=== PATIENT | female | born 1950 ===

== ENCOUNTER 2018-04-14 16:47 | Inpatient (IN) | payer MEDICARE, OTHER ==
[2018-04-14 16:54] VITALS: BMI 29.8
[2018-04-14 17:51] LABS: BASO # 0.01 K/mm3 (0.0-2.0); EOS # 0.1 (0.0-0.7); EOS % 0.6 % (1.5-5.0); GRAN # 17.83 (1.4-6.5); GRAN % 82.7 % (50.0-68.0); HEMOGLOBIN 9.1 g/dL (12.0-16.0); LYMPH # 1.9 (1.2-3.4); MEAN CELL VOLUME 85.3 fl (80.0-105.0); MEAN CORPUSCULAR HEMOGLOBIN 26.8 pg (25.0-35.0); MEAN CORPUSCULAR HGB CONC 31.5 g/dl (31.0-37.0); MEAN PLATELET VOLUME 8.6 fl (7.0-11.0); MONO # 1.7 (0.1-0.6); MONO % 7.7 % (1.0-6.0); RBC 3.39 10^6/uL (3.5-6.1); RED CELL DISTRIBUTION WIDTH 15.6 % (11.5-14.5); WHITE BLOOD COUNT 21.6 10^3/uL (4.5-11.0)
[2018-04-14 18:17] LABS: TROPONIN I < 0.01 ng/mL
[2018-04-14] MEDS: Sodium Chloride 0.9% 1,000 ML IV SCH (18:19)
[2018-04-14 18:32] LABS: ALB/GLOB RATIO 0.9 (1.1-1.8); ALBUMIN 3.5 g/dL (3.0-4.8); ALT/SGPT 27 U/L (7-56); AST/SGOT 36 U/L (14-36); B-TYPE NATRIURETIC PEPTIDE 238 pg/mL (0-450); BLOOD UREA NITROGEN 20 mg/dL (7-21); CALCIUM 9.4 mg/dL (8.4-10.5); GFR NON-AFRICAN AMERICAN 55
--- NOTE | 2018-04-14 18:50 | ED PDOC ---
Arrival/HPI - General Chief Complaint: Syncope Time Seen by Provider: 04/14/18 17:18 Historian: Patient - History of Present Illness Narrative History of Present Illness (Text): 04/14/18 16:50 67 year old female, whose past medical history includes hypertension and GERD, presents to the emergency department stating she is not feeling well for the past few days. Patient reports today she was walking and suddenly felt dizzy. The next thing she recalls was that she was on the floor and was unsure how long she was on the floor for. After waking up, she noticed she missed 2 messages on her phone. Patient reports decrease appetite along with unintentional 12 pound weight loss in the past 4 weeks. Patient denies any fever, chills, chest pain, shortness of breath, nausea, vomiting, diarrhea, urinary symptoms, back pain, neck pain, headache, or any other complaints. PMD: Dr. Amaya Time/Duration: Other (few days) Symptom Onset: Gradual Symptom Course: Unchanged Activities at Onset: Light Past Medical History - Provider Review Nursing Documentation Reviewed: Yes - Infectious Disease Hx of Infectious Diseases: None - Tetanus Immunization Tetanus Immunization: Unknown - Reproductive Menopause: Yes - Cardiac Hx Hypertension: Yes - Neurological Hx Paralysis: No - Endocrine/Metabolic Hx Diabetes Mellitus Type 2: Yes - Hematological/Oncological Hx Blood Transfusions: No Hx Blood Transfusion Reaction: No - Musculoskeletal/Rheumatological Hx Musculoskeletal Disorders: Yes - Psychiatric Hx Emotional Abuse: No Hx Physical Abuse: No Hx Substance Use: No - Surgical History Other/Comment: spine surgery. L breast cyst removed - Anesthesia Hx Anesthesia Reactions: No Hx Malignant Hyperthermia: No - Suicidal Assessment Feels Threatened In Home Enviroment: No Family/Social History - Physician Review Nursing Documentation Reviewed: Yes Family/Social History: No Known Family HX Smoking Status: Former Smoker Hx Alcohol Use: Yes (SOCIAL) Hx Substance Use: No Allergies/Home Meds Allergies/Adverse Reactions: Allergies No Known Allergies Allergy (Verified 04/05/14 22:55) Home Medications: Home Meds Medication Instructions Recorded Confirmed DULoxetine [Cymbalta] 30 mg PO DAILY 04/05/14 03/01/16 Esomeprazole Magnesium [Nexium] 40 mg PO DAILY 04/05/14 03/01/16 Losartan/Hydrochlorothiazide 1 tab PO DAILY 04/05/14 03/01/16 [Losartan Potassium-Hydrochlorothiazide 12.5 M] Celecoxib [CeleBREX] 200 mg PO DAILY 02/25/16 02/25/16 Tiotropium [Spiriva] 18 mcg IH DAILY PRN 02/25/16 03/01/16 Review of Systems - Physician Review All systems were reviewed & negative as marked: Yes - Review of Systems Constitutional: Weight Change. absent: Fevers, Other (Chills) Respiratory: absent: SOB Cardiovascular: Syncope. absent: Chest Pain Gastrointestinal: Appetite Changes. absent: Diarrhea, Nausea, Vomiting Genitourinary Female: absent: Dysuria, Frequency, Hematuria Musculoskeletal: absent: Back Pain, Neck Pain Neurological: Dizziness. absent: Headache Physical Exam Vital Signs Reviewed: Yes Vital Signs Temp Pulse Resp BP Pulse Ox 04/14/18 16:48 98 F 100 H 18 111/74 100 Temperature: Afebrile Blood Pressure: Normal Pulse: Tachycardic Respiratory Rate: Normal Appearance: Positive for: Well-Appearing, Non-Toxic, Comfortable Pain Distress: None Mental Status: Positive for: Alert and Oriented X 3 - Systems Exam Head: Present: Atraumatic, Normocephalic Pupils: Present: PERRL Extroacular Muscles: Present: EOMI Conjunctiva: Present: Normal Mouth: Present: Dry Neck: Present: Normal Range of Motion Respiratory/Chest: Present: Clear to Auscultation, Good Air Exchange. No: Respiratory Distress, Accessory Muscle Use Cardiovascular: Present: Regular Rate and Rhythm, Normal S1, S2. No: Murmurs Abdomen: No: Tenderness, Distention, Peritoneal Signs Back: Present: Normal Inspection Upper Extremity: Present: Normal Inspection. No: Cyanosis, Edema Lower Extremity: Present: Normal Inspection. No: Edema Neurological: Present: GCS=15, CN II-XII Intact, Speech Normal Skin: Present: Warm, Dry, Normal Color. No: Rashes Psychiatric: Present: Alert, Oriented x 3, Normal Insight, Normal Concentration Medical Decision Making ED Course and Treatment: 04/14/18 17:20 Impression: 67 year old female presents s/p syncopal episode after feeling dizzy. Patient re port she was not feeling well for the past couple of days and noted decrease appetite along with 12 pounds weight loss in the past 4 weeks. Plan: -- CT Head w/o Contrast -- EKG -- Labs -- Chest X-ray -- IV Fluids -- Urine Culture -- Urinalysis -- Reassess and disposition Prior Visits: Notes and results from previous visits were reviewed. Progress Notes: EKG shows NSR at 97 BPM with normal axis and normal intervals. Interpreted by me. 04/14/18 18:57 CXR Impression: As read by me, No active disease. Orthostatics positive. 04/14/18 18:58 Case signed out to Dr. Ornelas, pending CT head w/o contrast, reassess, and disposition. - Lab Interpretations Lab Results: Troponin I < 0.01 ng/mL 04/14/18 17:35 NT-Pro-B Natriuret Pep 238 pg/mL (0-450) 04/14/18 17:35 Total Bilirubin 0.5 mg/dL (0.2-1.3) 04/14/18 17:35 AST 36 U/L (14-36) 04/14/18 17:35 ALT 27 U/L (7-56) 04/14/18 17:35 Alkaline Phosphatase 107 U/L (38-126) 04/14/18 17:35 Total Protein 7.6 g/dL (5.8-8.3) 04/14/18 17:35 Albumin 3.5 g/dL (3.0-4.8) 04/14/18 17:35 Globulin 4.1 gm/dL 04/14/18 17:35 Albumin/Globulin Ratio 0.9 (1.1-1.8) L 04/14/18 17:35 I have reviewed the lab results: Yes - RAD Interpretation Radiology Orders: 04/14/18 17:18 HEAD W/O CONTRAST [CT] Stat CHEST PORTABLE [RAD] Stat Traffic Safety Administrator: Radiologist - EKG Interpretation Interpreted by ED Physician: Yes Type: 12 lead EKG - Medication Orders Current Medication Orders: Sodium Chloride (Sodium Chloride 0.9%) 1,000 mls @ 100 mls/hr IV .Q10H ELI Last Admin: 04/14/18 18:19 Dose: 100 mls/hr eMAR Start Stop Document 04/14/18 18:19 SS (Rec: 04/14/18 18:19 SS [id number]) Intravenous Solution Start Date 04/14/18 Start Time 18:19 - Scribe Statement The provider has reviewed the documentation as recorded by the Otoniel Calixto Provider Scribe Attestation: All medical record entries made by the Scribe were at my direction and personally dictated by me. I have reviewed the chart and agree that the record accurately reflects my personal performance of the history, physical exam, medical decision making, and the department course for this patient. I have also personally directed, reviewed, and agree with the discharge instructions and disposition. Disposition/Present on Arrival - Present on Arrival Any Indicators Present on Arrival: No History of DVT/PE: No History of Uncontrolled Diabetes: No Urinary Catheter: No History of Decub. Ulcer: No History Surgical Site Infection Following: None - Disposition Have Diagnosis and Disposition been Completed?: Yes Diagnosis: Orthostatic hypotension, Syncope, Leukocytosis Disposition Time: 19:00 Condition: STABLE Discharge Instructions (ExitCare): Syncope (ED) Forms: [facility] (Afghan)
[2018-04-14 18:51] LABS: URINE BILIRUBIN NEGATIVE (NEGATIVE); URINE BLOOD NEGATIVE (NEGATIVE); URINE GLUCOSE (UA) NEGATIVE (NEGATIVE); URINE LEUKOCYTE ESTERASE NEGATIVE Leu/uL (NEGATIVE); URINE PROTEIN NEGATIVE mg/dL (<30 mg/dL); URINE UROBILINOGEN 0.2 E.U./dL (<1 E.U./dL)
[2018-04-14 18:53] LABS: URINE APPEARANCE CLEAR (CLEAR); URINE COLOR YELLOW (YELLOW)
[2018-04-14 19:55] LABS: T3 0.95 ng/mL (0.97-1.69)
[2018-04-14] MEDS ORDERED: cefTRIAXone 1 gm 1 GM/100 ML BAG IV STA (20:19)
--- NOTE | 2018-04-14 20:28 | ED PDOC ---
Physical Exam Vital Signs Temp Pulse Resp BP Pulse Ox 04/14/18 18:30 77 18 100 04/14/18 16:48 98 F 100 H 18 111/74 100 Medical Decision Making ED Course and Treatment: 04/14/18 19:00 Case endorsed to me by Dr. Carvalho, pending CT head w/o contrast, reassess, and disposition. Patient with past medical history of hypertension and GERD. Patient with a syncopal episode today with history of decrease appetite and weight loss over the past month. EXAM: CT Head without Intravenous Contrast. Electronically signed on Apr 14, 2018 7:45:04 PM EST by: Samir Cash M.D. IMPRESSION: No acute intracranial abnormality. Mild inflammatory changes left maxillary sinus suspected. 04/14/18 20:[address] Fields who is aware and agrees with the plan. Accepts patient into his service. - Lab Interpretations Lab Results: Troponin I < 0.01 ng/mL 04/14/18 17:35 NT-Pro-B Natriuret Pep 238 pg/mL (0-450) 04/14/18 17:35 Total Bilirubin 0.5 mg/dL (0.2-1.3) 04/14/18 17:35 AST 36 U/L (14-36) 04/14/18 17:35 ALT 27 U/L (7-56) 04/14/18 17:35 Alkaline Phosphatase 107 U/L (38-126) 04/14/18 17:35 Total Protein 7.6 g/dL (5.8-8.3) 04/14/18 17:35 Albumin 3.5 g/dL (3.0-4.8) 04/14/18 17:35 Globulin 4.1 gm/dL 04/14/18 17:35 Albumin/Globulin Ratio 0.9 (1.1-1.8) L 04/14/18 17:35 Urine Color Yellow (YELLOW) 04/14/18 18:16 Urine Appearance Clear (CLEAR) 04/14/18 18:16 Urine pH 6.0 (4.7-8.0) 04/14/18 18:16 Ur Specific [place] 1.020 (1.005-1.035) 04/14/18 18:16 Urine Protein Negative mg/dL (<30 mg/dL) 04/14/18 18:16 Urine Glucose (UA) Negative mg/dL (NEGATIVE) 04/14/18 18:16 Urine Ketones Negative mg/dL (NEGATIVE) 04/14/18 18:16 Urine Blood Negative (NEGATIVE) 04/14/18 18:16 Urine Nitrate Negative (NEGATIVE) 04/14/18 18:16 Urine Bilirubin Negative (NEGATIVE) 04/14/18 18:16 Urine Urobilinogen 0.2 E.U./dL (<1 E.U./dL) 04/14/18 18:16 Ur Leukocyte Esterase Negative Emma/uL (NEGATIVE) 04/14/18 18:16 - RAD Interpretation Radiology Orders: 04/14/18 17:18 HEAD W/O CONTRAST [CT] Stat CHEST PORTABLE [RAD] Stat - Medication Orders Current Medication Orders: Sodium Chloride (Sodium Chloride 0.9%) 1,000 mls @ 100 mls/hr IV .Q10H ELI Last Admin: 04/14/18 18:19 Dose: 100 mls/hr eMAR Start Stop Document 04/14/18 18:19 SS (Rec: 04/14/18 18:19 SS [id number]) Intravenous Solution Start Date 04/14/18 Start Time 18:19 Ceftriaxone Sodium (Rocephin 1 Gram Ivpb) 1 gm in 100 mls @ 200 mls/hr IV ONCE STA; Protocol Stop: 04/14/18 20:48 - Scribe Statement The provider has reviewed the documentation as recorded by the Scribe Noemi Calixto Provider Scribe Attestation: All medical record entries made by the Scribe were at my direction and personally dictated by me. I have reviewed the chart and agree that the record accurately reflects my personal performance of the history, physical exam, medical decision making, and the department course for this patient. I have also personally directed, reviewed, and agree with the discharge instructions and disposition. Disposition/Present on Arrival - Present on Arrival Any Indicators Present on Arrival: No History of DVT/PE: No History of Uncontrolled Diabetes: No Urinary Catheter: No History of Decub. Ulcer: No History Surgical Site Infection Following: None - Disposition Have Diagnosis and Disposition been Completed?: Yes Diagnosis: Orthostatic hypotension, Syncope, Leukocytosis Disposition: HOSPITALIZED Disposition Time: 20:31 Patient Problems: Current Active Problems Problem Status Onset Leukocytosis Acute Orthostatic hypotension Acute Syncope Acute Condition: STABLE Discharge Instructions (ExitCare): Syncope (ED) Forms: [facility] (Serbian)
[2018-04-15] MEDS: Sodium Chloride 0.9% 1,000 ML IV SCH ×2 (04:00→15:35)
--- NOTE | 2018-04-15 05:30 | CP.PCM.HP ---
Past Patient History - Infectious Disease Hx of Infectious Diseases: None - Tetanus Immunizations Tetanus Immunization: Unknown - Past Social History Smoking Status: Former Smoker - CARDIAC Hx Cardiac Disorders: Yes Hx Hypertension: Yes - PULMONARY Hx Respiratory Disorders: No - NEUROLOGICAL Hx Neurological Disorder: Yes Hx Dizziness: Yes - HEENT Hx HEENT Problems: No - RENAL Hx Chronic Kidney Disease: No - ENDOCRINE/METABOLIC Hx Endocrine Disorders: Yes Hx Diabetes Mellitus Type 2: Yes - HEMATOLOGICAL/ONCOLOGICAL Hx Blood Disorders: No - INTEGUMENTARY Hx Dermatological Problems: No - MUSCULOSKELETAL/RHEUMATOLOGICAL Hx Musculoskeletal Disorders: Yes Hx Arthritis: Yes Hx Falls: Yes (04/14/18) Hx Unsteady Gait: Yes - GASTROINTESTINAL Hx Gastrointestinal Disorders: No - GENITOURINARY/GYNECOLOGICAL Hx Genitourinary Disorders: No - PSYCHIATRIC Hx Psychophysiologic Disorder: No - SURGICAL HISTORY Hx Surgeries: Yes Hx Appendectomy: Yes Other/Comment: spine surgery. L breast cyst removed. Ovarain cyst removal x6. Tubal ligation - ANESTHESIA Hx Anesthesia Reactions: No Hx Malignant Hyperthermia: No Meds Allergies/Adverse Reactions: Allergies Allergy/AdvReac Type Severity Reaction Status Date / Time No Known Allergies Allergy Verified 04/05/14 22:55 Results - Vital Signs Recent Vital Signs: Last Vital Signs Temp 99.2 F 04/15/18 00:38 Pulse 73 04/15/18 02:00 Resp 20 04/15/18 00:38 BP 124/79 04/15/18 00:38 Pulse Ox 95 04/15/18 00:38 - Labs Result Diagrams: 04/14/18 17:35 04/14/18 17:35 Labs: Laboratory Results - last 24 hr 04/14/18 04/14/18 04/14/18 17:35 17:35 17:35 WBC 21.6 H RBC 3.39 L Hgb 9.1 L Hct 28.9 L MCV 85.3 MCH 26.8 MCHC 31.5 RDW 15.6 H Plt Count 669 H MPV 8.6 Gran % 82.7 H Lymph % (Auto) 9.0 L [place] % (Auto) 7.7 H Eos % (Auto) 0.6 L Baso % (Auto) 0.0 Gran # 17.83 H Lymph # (Auto) 1.9 [place] # (Auto) 1.7 H Eos # (Auto) 0.1 Baso # (Auto) 0.01 Sodium 136 Potassium 4.1 Chloride 99 Carbon Dioxide 27 Anion Gap 14 BUN 20 Creatinine 1.0 Est GFR ( Amer) > 60 Est GFR (Non-Af Amer) 55 Random Glucose 144 H Calcium 9.4 Magnesium 2.0 Total Bilirubin 0.5 AST 36 ALT 27 Alkaline Phosphatase 107 Lactate Dehydrogenase 561 Total Creatine Kinase 26 L Troponin I < 0.01 NT-Pro-B Natriuret Pep 238 Total Protein 7.6 Albumin 3.5 Globulin 4.1 Albumin/Globulin Ratio 0.9 L Total T3 0.95 L TSH 3rd Generation 1.94 Urine Color Urine Appearance Urine pH Ur Specific [place] Urine Protein Urine Glucose (UA) Urine Ketones Urine Blood Urine Nitrate Urine Bilirubin Urine Urobilinogen Ur Leukocyte Esterase 04/14/18 18:16 WBC RBC Hgb Hct MCV MCH MCHC RDW Plt Count MPV Gran % Lymph % (Auto) [place] % (Auto) Eos % (Auto) Baso % (Auto) Gran # Lymph # (Auto) [place] # (Auto) Eos # (Auto) Baso # (Auto) Sodium Potassium Chloride Carbon Dioxide Anion Gap BUN Creatinine Est GFR ( Amer) Est GFR (Non-Af Amer) Random Glucose Calcium Magnesium Total Bilirubin AST ALT Alkaline Phosphatase Lactate Dehydrogenase Total Creatine Kinase Troponin I NT-Pro-B Natriuret Pep Total Protein Albumin Globulin Albumin/Globulin Ratio Total T3 TSH 3rd Generation Urine Color Yellow Urine Appearance Clear Urine pH 6.0 Ur Specific [place] 1.020 Urine Protein Negative Urine Glucose (UA) Negative Urine Ketones Negative Urine Blood Negative Urine Nitrate Negative Urine Bilirubin Negative Urine Urobilinogen 0.2 Ur Leukocyte Esterase Negative
--- NOTE | 2018-04-15 09:04 | CP.PCM.HP ---
<Jeanette Aburto - Last Filed: 04/15/18 22:22> History of Present Illness - History of Present Illness History of Present Illness: 67yo female PMHx HTN, GERD, DM2, lumbar disc herniation and LLE sciatica presens with episode of syncope at home. Patient reports she had returned home from buying groceries and after sitting down she stood up to reach her phone and started to feel dizzy. She had an episode of LOC and woke up on the floor. She was uncertain of how long she was on the floor for. She reported lightheadedness during this episode but denied any loss of bowel/bladder control, biting of the tongue. She was also unsure whether she hit her head but did complain of a mild dull headache. The patient denied any numbness/tingling/focal weakness/change in vision/change in taste/smell. Patient denied any history of seizures. Patient did report that recently she has noted a decreased appetite and a 20 pound unintentional weight loss over 3 months. Additionally she reported that someti mes when she is in the shower/moving around she experiences a sense of heaviness in her chest with associated nausea but no overt chest pain or shortness of breath. Patient states she has had a stress test in the past 2 years ago but could not recall the result. She has also had an EGD and colonoscopy done but cannot recall the results. On ROS patient denied fever, chills, headache, palpitations, cough, abd pain, vomiting, bowel/bladder complaints. She has a history of sciatica and complained of LLE pain. PMHx: HTN, GERD, DM2, lumbar disc herniation and LLE sciatica, cervical discectomy, cervical radiculopathy, PSurgHx: L breast cyst removal. spinal surg PHospitalization: Apr 2017 for aspiration pna Meds: Metformin 500mg bid, Pravastatin 20mg hs, Losratan-HCTZ 100-12/5mg qd, Tizanidine 4mg, Gabapentin 300mg 1-2 times/day, Celecoxib 200mg qd, Cymbalta 30mg qd ALL: NKDA FamHx: mother DM and HTN alive at 84yo; father of [place] 64yo SocHx: prior tobacco use quit 2-3 months ago; used to smoke 4-5cigarettes/day for 30 years; retired. PMD: Jose Luis Present on Admission - Present on Admission Any Indicators Present on Admission: No Review of Systems - Review of Systems All systems: reviewed and no additional remarkable complaints except Review of Systems: as per HPI Past Patient History - Infectious Disease Hx of Infectious Diseases: None - Tetanus Immunizations Tetanus Immunization: Unknown - Past Social History Smoking Status: Former Smoker - CARDIAC Hx Cardiac Disorders: Yes Hx Hypertension: Yes - PULMONARY Hx Respiratory Disorders: No - NEUROLOGICAL Hx Neurological Disorder: Yes Hx Dizziness: Yes - HEENT Hx HEENT Problems: No - RENAL Hx Chronic Kidney Disease: No - ENDOCRINE/METABOLIC Hx Endocrine Disorders: Yes Hx Diabetes Mellitus Type 2: Yes - HEMATOLOGICAL/ONCOLOGICAL Hx Blood Disorders: No - INTEGUMENTARY Hx Dermatological Problems: No - MUSCULOSKELETAL/RHEUMATOLOGICAL Hx Musculoskeletal Disorders: Yes Hx Arthritis: Yes Hx Falls: Yes (04/14/18) Hx Unsteady Gait: Yes - GASTROINTESTINAL Hx Gastrointestinal Disorders: No - GENITOURINARY/GYNECOLOGICAL Hx Genitourinary Disorders: No - PSYCHIATRIC Hx Psychophysiologic Disorder: No - SURGICAL HISTORY Hx Surgeries: Yes Hx Appendectomy: Yes Other/Comment: spine surgery. L breast cyst removed. Ovarain cyst removal x6. Tubal ligation - ANESTHESIA Hx Anesthesia Reactions: No Hx Malignant Hyperthermia: No Meds Allergies/Adverse Reactions: Allergies Allergy/AdvReac Type Severity Reaction Status Date / Time No Known Allergies Allergy Verified 04/05/14 22:55 Physical Exam - Constitutional Appears: Non-toxic, No Acute Distress - Head Exam Head Exam: ATRAUMATIC, NORMAL INSPECTION, NORMOCEPHALIC - Eye Exam Eye Exam: EOMI, Normal appearance, PERRL. absent: Conjunctival injection, Scleral icterus - ENT Exam ENT Exam: Mucous Membranes Moist - Neck Exam Neck exam: Positive for: Full Rom. Negative for: Lymphadenopathy - Respiratory Exam Respiratory Exam: Clear to Auscultation Bilateral, NORMAL BREATHING PATTERN. absent: Accessory Muscle Use, Rales, Rhonchi, Wheezes, Respiratory Distress - Cardiovascular Exam Cardiovascular Exam: RRR, +S1, +S2 - GI/Abdominal Exam GI & Abdominal Exam: Normal Bowel Sounds, Soft. absent: Firm, Guarding, Rigid, Tenderness - Rectal Exam Rectal Exam: Deferred - Extremities Exam Extremities exam: Positive for: normal inspection, pedal pulses present. Negative for: pedal edema - Neurological Exam Neurological exam: Alert, CN II-XII Intact, Oriented x3 - Psychiatric Exam Psychiatric exam: Normal Affect, Normal Mood - Skin Skin Exam: Dry, Intact, Normal Color, Warm Results - Vital Signs Recent Vital Signs: Last Vital Signs Temp 97.8 F 04/15/18 08:12 Pulse 65 04/15/18 08:12 Resp 20 04/15/18 08:12 BP 103/63 04/15/18 08:12 Pulse Ox 97 04/15/18 08:12 - Labs Result Diagrams: 04/15/18 11:00 04/14/18 17:35 Labs: Laboratory Results - last 24 hr 04/14/18 04/14/18 04/14/18 17:35 17:35 17:35 WBC 21.6 H RBC 3.39 L Hgb 9.1 L Hct 28.9 L MCV 85.3 MCH 26.8 MCHC 31.5 RDW 15.6 H Plt Count 669 H MPV 8.6 Gran % 82.7 H Lymph % (Auto) 9.0 L [place] % (Auto) 7.7 H Eos % (Auto) 0.6 L Baso % (Auto) 0.0 Gran # 17.83 H Lymph # (Auto) 1.9 [place] # (Auto) 1.7 H Eos # (Auto) 0.1 Baso # (Auto) 0.01 Sodium 136 Potassium 4.1 Chloride 99 Carbon Dioxide 27 Anion Gap 14 BUN 20 Creatinine 1.0 Est GFR ( Amer) > 60 Est GFR (Non-Af Amer) 55 Random Glucose 144 H Calcium 9.4 Magnesium 2.0 Total Bilirubin 0.5 AST 36 ALT 27 Alkaline Phosphatase 107 Lactate Dehydrogenase 561 Total Creatine Kinase 26 L Troponin I < 0.01 NT-Pro-B Natriuret Pep 238 Total Protein 7.6 Albumin 3.5 Globulin 4.1 Albumin/Globulin Ratio 0.9 L Total T3 0.95 L TSH 3rd Generation 1.94 Urine Color Urine Appearance Urine pH Ur Specific [place] Urine Protein Urine Glucose (UA) Urine Ketones Urine Blood Urine Nitrate Urine Bilirubin Urine Urobilinogen Ur Leukocyte Esterase 04/14/18 18:16 WBC RBC Hgb Hct MCV MCH MCHC RDW Plt Count MPV Gran % Lymph % (Auto) [place] % (Auto) Eos % (Auto) Baso % (Auto) Gran # Lymph # (Auto) [place] # (Auto) Eos # (Auto) Baso # (Auto) Sodium Potassium Chloride Carbon Dioxide Anion Gap BUN Creatinine Est GFR ( Amer) Est GFR (Non-Af Amer) Random Glucose Calcium Magnesium Total Bilirubin AST ALT Alkaline Phosphatase Lactate Dehydrogenase Total Creatine Kinase Troponin I NT-Pro-B Natriuret Pep Total Protein Albumin Globulin Albumin/Globulin Ratio Total T3 TSH 3rd Generation Urine Color Yellow Urine Appearance Clear Urine pH 6.0 Ur Specific [place] 1.020 Urine Protein Negative Urine Glucose (UA) Negative Urine Ketones Negative Urine Blood Negative Urine Nitrate Negative Urine Bilirubin Negative Urine Urobilinogen 0.2 Ur Leukocyte Esterase Negative Assessment & Plan - Assessment and Plan (Free Text) Assessment: 1. Syncope 2. Anemia 3. Leukocytosis 4. HTN 5. DM2 6. Hypercholesterolemia 7. Cervical radiculopathy 8. Lumbar disc herniation and radiculopathy 9. LLE sciatica 10. GERD Plan: Patient's vitals, imaging, and blood work noted. Patient's syncope likely vasovagal in nature with regards to clinical picture but must take into consideration other cardiogenic vs neurogenic causes. CT head negative. Will f/u orthostatic vital signs and carotid A u/s. Cardiology and Neurology consulted- will f/u reccs. Patient's BP meds on hold at this time and patient has been normotensive- will continue to monitor closely. Patient's normocytic anemia noted. Iron studies ordered- will f/u. Patient's leukocytosis likely reactionary ; monitor at this time. No need for abx. CXR unremarkable; blood cultures prelim negative x 2. Will f/u urine culture. UA negative and patient is afebrile with no complaints suggestive of infectious etiology. Monitor WBC on AM labs. F/u patient's HgbA1c. Home hypoglycemic meds on hold and patient on Accuchecks and RISS. FLP ordered with AM labs and home statin continued. Patient's home Celexa, Neurontin, and Cymbalta continued. Patient on heart healthy diet at this time and encouraged to have good PO intake. PT ordered- will f/u reccs. Discussed with Dr. Donnie Aburto PGY3 <Lonny Fields S - Last Filed: 04/16/18 19:34> Results - Vital Signs Recent Vital Signs: Last Vital Signs Temp 98.1 F 04/16/18 08:18 Pulse 67 04/16/18 08:18 Resp 20 04/16/18 08:18 BP 118/65 04/16/18 08:18 Pulse Ox 95 04/16/18 08:18 - Labs Result Diagrams: 04/16/18 06:00 04/16/18 06:00 Labs: Laboratory Results - last 24 hr 04/15/18 04/16/18 04/16/18 21:27 06:00 06:00 WBC 15.4 H RBC 3.44 L Hgb 8.8 L Hct 29.1 L MCV 84.6 MCH 25.6 MCHC 30.2 L RDW 15.6 H Plt Count 663 H MPV 8.4 Gran % 72.9 H Lymph % (Auto) 16.4 L [place] % (Auto) 8.2 H Eos % (Auto) 2.3 Baso % (Auto) 0.2 Gran # 11.20 H Lymph # (Auto) 2.5 [place] # (Auto) 1.3 H Eos # (Auto) 0.4 Baso # (Auto) 0.03 Retic Count 2.51 H PT INR APTT Sodium Potassium Chloride Carbon Dioxide Anion Gap BUN Creatinine Est GFR ( Amer) Est GFR (Non-Af Amer) POC Glucose (mg/dL) 107 Random Glucose Calcium Phosphorus Magnesium Iron 20 L TIBC 199 L % Saturation 10 L Transferrin Ferritin Total Bilirubin AST ALT Alkaline Phosphatase Total Protein Albumin Globulin Albumin/Globulin Ratio Triglycerides Cholesterol LDL Cholesterol Direct HDL Cholesterol Carcinoembryonic Ag CA 19-9 Antigen CA 125 Antigen 04/16/18 04/16/18 04/16/18 06:00 06:00 06:00 WBC RBC Hgb Hct MCV MCH MCHC RDW Plt Count MPV Gran % Lymph % (Auto) [place] % (Auto) Eos % (Auto) Baso % (Auto) Gran # Lymph # (Auto) [place] # (Auto) Eos # (Auto) Baso # (Auto) Retic Count PT INR APTT Sodium 140 Potassium 4.0 Chloride 105 Carbon Dioxide 31 Anion Gap 7 L BUN 15 Creatinine 0.9 Est GFR ( Amer) > 60 Est GFR (Non-Af Amer) > 60 POC Glucose (mg/dL) Random Glucose 115 H Calcium 9.3 Phosphorus 4.1 Magnesium 2.5 H Iron TIBC % Saturation Transferrin Ferritin 798.0 Total Bilirubin 0.5 AST 41 H ALT 21 Alkaline Phosphatase 94 Total Protein 7.3 Albumin 3.3 Globulin 4.0 Albumin/Globulin Ratio 0.8 L Triglycerides 89 Cholesterol 104 L LDL Cholesterol Direct 53 HDL Cholesterol 22 L Carcinoembryonic Ag 2.1 CA 19-9 Antigen 2.6 CA 125 Antigen 16.7 04/16/18 04/16/18 04/16/18 06:30 08:14 11:42 WBC RBC Hgb Hct MCV MCH MCHC RDW Plt Count MPV Gran % Lymph % (Auto) [place] % (Auto) Eos % (Auto) Baso % (Auto) Gran # Lymph # (Auto) [place] # (Auto) Eos # (Auto) Baso # (Auto) Retic Count PT INR APTT Sodium Potassium Chloride Carbon Dioxide Anion Gap BUN Creatinine Est GFR ( Amer) Est GFR (Non-Af Amer) POC Glucose (mg/dL) 121 H 240 H Random Glucose Calcium Phosphorus Magnesium Iron TIBC % Saturation Transferrin 140.90 L Ferritin Total Bilirubin AST ALT Alkaline Phosphatase Total Protein Albumin Globulin Albumin/Globulin Ratio Triglycerides Cholesterol LDL Cholesterol Direct HDL Cholesterol Carcinoembryonic Ag CA 19-9 Antigen CA 125 Antigen 04/16/18 04/16/18 13:45 17:23 WBC RBC Hgb Hct MCV MCH MCHC RDW Plt Count MPV Gran % Lymph % (Auto) [place] % (Auto) Eos % (Auto) Baso % (Auto) Gran # Lymph # (Auto) [place] # (Auto) Eos # (Auto) Baso # (Auto) Retic Count PT 17.3 H INR 1.49 APTT 25.8 Sodium Potassium Chloride Carbon Dioxide Anion Gap BUN Creatinine Est GFR ( Amer) Est GFR (Non-Af Amer) POC Glucose (mg/dL) 83 Random Glucose Calcium Phosphorus Magnesium Iron TIBC % Saturation Transferrin Ferritin Total Bilirubin AST ALT Alkaline Phosphatase Total Protein Albumin Globulin Albumin/Globulin Ratio Triglycerides Cholesterol LDL Cholesterol Direct HDL Cholesterol Carcinoembryonic Ag CA 19-9 Antigen CA 125 Antigen Assessment & Plan - Assessment and Plan (Free Text) Plan: Pt seen and examined by me. I have reviewed the note of the bio medical technician and I agree with it. I have discussed the assessment and plan with the resident. I have reviewed the medications and the last labs. Radiology reports reviewed. Pt with syncopal episode. She has wt loss over the last few months. Unknown cause of anemia. Will order Iron studies. She will need echo and cardiology evaluation. BCx are negative. She will be placed on accuchecks with Insulin coverage. CT was reviewed and negative.
--- NOTE | 2018-04-15 09:43 | RAD ---
Date of service: 04/14/2018 HISTORY: r/o infiltrate COMPARISON: 04/06/2014 FINDINGS: LUNGS: No active pulmonary disease. PLEURA: No significant pleural effusion identified, no pneumothorax apparent. CARDIOVASCULAR: No aortic atherosclerotic calcification present. Normal cardiac size. No pulmonary vascular congestion. OSSEOUS STRUCTURES: No significant abnormalities. VISUALIZED UPPER ABDOMEN: Normal. OTHER FINDINGS: None. IMPRESSION: No active disease.
[2018-04-15] MEDS ORDERED: Dextrose 50% SYRINGE Inj (50 ml) IV PRN (09:45)
[2018-04-15] MEDS ORDERED: CELECOXIB 200 MG PO PRN (09:51)
[2018-04-15] MEDS ORDERED: Non Formulary Medication (Celecoxib [Celebrex] 200 MG) PO SCH (10:00)
--- NOTE | 2018-04-15 10:18 | CT ---
Date of service: 04/14/2018 PROCEDURE: CT HEAD WITHOUT CONTRAST. HISTORY: syncope COMPARISON: None available. TECHNIQUE: Axial computed tomography images were obtained through the head/brain without intravenous contrast. Radiation dose: Total exam DLP = 927.16 mGy-cm. This CT exam was performed using one or more of the following dose reduction techniques: Automated exposure control, adjustment of the mA and/or kV according to patient size, and/or use of iterative reconstruction technique. FINDINGS: HEMORRHAGE: No intracranial hemorrhage. BRAIN: No mass effect or edema. No atrophy or chronic microvascular ischemic changes. VENTRICLES: Unremarkable. No hydrocephalus. CALVARIUM: Unremarkable. PARANASAL SINUSES: Mucosal thickening in the left maxillary sinus MASTOID AIR CELLS: Unremarkable as visualized. No inflammatory changes. OTHER FINDINGS: The report concurs with the preliminary [facility] report IMPRESSION: No acute intracranial findings
[2018-04-15 11:15] LABS: HEMOGLOBIN 8.1 g/dL (12.0-16.0); MEAN CORPUSCULAR HEMOGLOBIN 25.8 pg (25.0-35.0); MEAN CORPUSCULAR HGB CONC 30.3 g/dl (31.0-37.0); MEAN PLATELET VOLUME 8.3 fl (7.0-11.0); RBC 3.14 10^6/uL (3.5-6.1); RED CELL DISTRIBUTION WIDTH 15.6 % (11.5-14.5)
--- NOTE | 2018-04-15 15:25 | CP.PCM.APN ---
Subjective - Date & Time of Evaluation Date of Evaluation: 04/15/18 Time of Evaluation: 10:00 - Subjective Subjective: Pt seen and examined. Denied dizziness, fever or chills presently. Review of Systems - Constitutional Constitutional: Night Sweats, Weight Loss - Cardiovascular Cardiovascular: As Per HPI - Respiratory Respiratory: As Per HPI - Gastrointestinal Gastrointestinal: As Per HPI - Genitourinary Genitourinary: As Per HPI - Musculoskeletal Musculoskeletal: As Per HPI - Integumentary Integumentary: As Per HPI - Neurological Neurological: As Per HPI - Hematologic/Lymphatic Hematologic: As Per HPI Objective - Vital Signs/Intake and Output Vital Signs (last 24 hours): Temp Pulse Resp BP Pulse Ox 97.8 F 65 20 103/63 97 04/15/18 08:12 04/15/18 08:12 04/15/18 08:12 04/15/18 08:12 04/15/18 08:12 Intake and Output: 04/15/18 04/15/18 06:59 18:59 Intake Total 1020 Balance 1020 - Medications Medications: Current Medications Atorvastatin Calcium (Lipitor) 20 mg PO DIN ELI Dextrose (Dextrose 50% Inj) 0 ml IV STAT PRN; Protocol PRN Reason: Hypoglycemia Protocol Duloxetine HCl (Cymbalta) 30 mg PO DAILY [facility] Last Admin: 04/15/18 10:34 Dose: Not Given Gabapentin (Neurontin) 300 mg PO DAILY [facility]; Protocol Last Admin: 04/15/18 10:34 Dose: Not Given Sodium Chloride (Sodium Chloride 0.9%) 1,000 mls @ 100 mls/hr IV .Q10H [facility] Last Admin: 04/15/18 04:00 Dose: 100 mls/hr Dextrose (Dextrose 5% In Water 1000 Ml) 1,000 mls @ 0 mls/hr IV .Q0M PRN; Protocol PRN Reason: Hypoglycemia Protocol Insulin Human Lispro (Humalog Low) 0 units SC ACHS [facility]; Protocol Celecoxib [Celebrex] (200 Mg (Home Med)) 200 mg PO DAILY PRN PRN Reason: Pain, moderate (4-7) - Labs Labs: 04/15/18 11:00 04/14/18 17:35 - Constitutional Appears: Well, Non-toxic - Head Exam Head Exam: NORMAL INSPECTION, NORMOCEPHALIC - Eye Exam Eye Exam: Normal appearance Pupil Exam: NORMAL ACCOMODATION - ENT Exam ENT Exam: Normal Exam - Neck Exam Neck Exam: Full ROM - Respiratory Exam Respiratory Exam: Clear to Ausculation Bilateral - Cardiovascular Exam Cardiovascular Exam: +S1, +S2 - GI/Abdominal Exam GI & Abdominal Exam: Soft - Rectal Exam Rectal Exam: Deferred - Extremities Exam Extremities Exam: Full ROM - Back Exam Back Exam: NORMAL INSPECTION - Neurological Exam Neurological Exam: Alert, Awake, Oriented x3 - Skin Skin Exam: Dry, Intact, Normal Color, Warm Assessment and Plan - Assessment and Plan (Free Text) Assessment: Abnormal Lab Results 04/14/18 04/14/18 04/14/18 17:35 17:35 17:35 WBC 21.6 H RBC 3.39 L Hgb 9.1 L Hct 28.9 L MCV 85.3 MCH 26.8 MCHC 31.5 RDW 15.6 H Plt Count 669 H MPV 8.6 Gran % 82.7 H Lymph % (Auto) 9.0 L [place] % (Auto) 7.7 H Eos % (Auto) 0.6 L Baso % (Auto) 0.0 Gran # 17.83 H Lymph # (Auto) 1.9 [place] # (Auto) 1.7 H Eos # (Auto) 0.1 Baso # (Auto) 0.01 Sodium 136 Potassium 4.1 Chloride 99 Carbon Dioxide 27 Anion Gap 14 BUN 20 Creatinine 1.0 Est GFR ( Amer) > 60 Est GFR (Non-Af Amer) 55 POC Glucose (mg/dL) Random Glucose 144 H Calcium 9.4 Magnesium 2.0 Total Bilirubin 0.5 AST 36 ALT 27 Alkaline Phosphatase 107 Lactate Dehydrogenase 561 Total Creatine Kinase 26 L Troponin I < 0.01 NT-Pro-B Natriuret Pep 238 Total Protein 7.6 Albumin 3.5 Globulin 4.1 Albumin/Globulin Ratio 0.9 L Total T3 0.95 L TSH 3rd Generation 1.94 Urine Color Urine Appearance Urine pH Ur Specific [place] Urine Protein Urine Glucose (UA) Urine Ketones Urine Blood Urine Nitrate Urine Bilirubin Urine Urobilinogen Ur Leukocyte Esterase 04/14/18 04/15/18 04/15/18 18:16 11:00 13:05 WBC 15.0 H D RBC 3.14 L Hgb 8.1 L Hct 26.7 L MCV 85.0 MCH 25.8 MCHC 30.3 L RDW 15.6 H Plt Count 586 H MPV 8.3 Gran % Lymph % (Auto) [place] % (Auto) Eos % (Auto) Baso % (Auto) Gran # Lymph # (Auto) [place] # (Auto) Eos # (Auto) Baso # (Auto) Sodium Potassium Chloride Carbon Dioxide Anion Gap BUN Creatinine Est GFR ( Amer) Est GFR (Non-Af Amer) POC Glucose (mg/dL) 138 H Random Glucose Calcium Magnesium Total Bilirubin AST ALT Alkaline Phosphatase Lactate Dehydrogenase Total Creatine Kinase Troponin I NT-Pro-B Natriuret Pep Total Protein Albumin Globulin Albumin/Globulin Ratio Total T3 TSH 3rd Generation Urine Color Yellow Urine Appearance Clear Urine pH 6.0 Ur Specific [place] 1.020 Urine Protein Negative Urine Glucose (UA) Negative Urine Ketones Negative Urine Blood Negative Urine Nitrate Negative Urine Bilirubin Negative Urine Urobilinogen 0.2 Ur Leukocyte Esterase Negative Impressions Chest X-Ray 04/14/18 17:18 IMPRESSION: No active disease. Head CT 04/14/18 17:18 IMPRESSION: No acute intracranial findings Temp Pulse Resp BP Pulse Ox 97.8 F 65 20 103/63 97 04/15/18 08:12 04/15/18 08:12 04/15/18 08:12 04/15/18 08:12 04/15/18 08:12 Orthostatic Vital Signs:10 am.(04/15) Supine 132/68 Sitting 123/61 Standing 118/69 Assessment: 67 year old female presents s/p syncopal episode after feeling dizzy. Patient report she was not feeling well for the past couple of days and noted decrease appetite along with 12 pounds weight loss in the past 4 weeks. Plan: 1. Syncope Most likely r/t orthostasis, currently on IVF, monitor BP, cardiology recommending echo, pending. - Neuro recommends carotid us, pending 2. Leukocytosis -iMproved, blood culture results pending. PT eval pending. Monitor Cbc, trend WBC. Will continue to monitor clinical status and follow closely.
[2018-04-15] MEDS: Insulin Lispro (humaLOG) LOW Coverage SC SCH ×3 (15:35→21:45)
--- NOTE | 2018-04-15 16:55 | CON ---
DATE: 04/15/2018 NEUROLOGY CONSULTATION CHIEF COMPLAINT: Syncope. HISTORY OF PRESENT ILLNESS: This is a 67-year-old woman with history of cervical discectomy and cervical radiculopathy, on gabapentin as well as Cymbalta, hypertension, GERD who has not been feeling well for the past few days, not been drinking enough fluids who is apparently got to pick-up the phone to talk to her mother and next minute she was on the floor. No history of any seizures in the past. No history of meningitis or trauma to the brain. She has decreased appetite and unintentional weight loss in the past of 12 pounds in the past month. She denies any focal weakness on extremities, denies any change in sense of vision, taste, or smell. No headaches at this time. Neuro exam is nonfocal. CAT scan of the head show no acute intracranial abnormalities. FAMILY HISTORY: Noncontributory. MEDICATIONS: Reviewed by nurses' reconciliation sheet. REVIEW OF SYSTEMS: A 14-point review of systems is negative except as per HPI. LABORATORY DATA: Sodium is 136, potassium is 4.1, chloride is 99, carbon dioxide is 27, BUN of 20, creatinine is 1, random blood sugar of 144. PHYSICAL EXAMINATION: GENERAL: The patient is sitting up in bed, in no acute distress. VITAL SIGNS: Temperature of 97.8, pulse rate of 65, blood pressure of 102/62, respiratory rate of 20, oxygen saturation 97% on room air. HEENT: Atraumatic, normocephalic. PERRLA. Extraocular muscles intact. NECK: Supple. No JVD. No adenopathy noted. LUNGS: Clear to auscultation. No adventitious sounds. HEART: S1 and S2. Normal rate and rhythm. No murmurs, rubs or gallops. ABDOMEN: Soft, nontender and nondistended. Bowel sounds present. EXTREMITIES: No clubbing. No cyanosis. Peripheral pulses 2+ felt bilaterally. NEUROLOGIC: The patient is alert and oriented to person, place, month and year. Speech is fluent without any errors. Cranial nerves II through XII are intact. Motor exam; moves all extremities equally. Toes are downgoing bilaterally. Coordination: [id number] is intact. Gait is deferred for now. IMPRESSION: This is a 67-year-old woman with past medical history of borderline diabetic, hypertension, cervical discectomy cervical radiculopathy, gabapentin and Cymbalta, had a syncopal event, most likely vasovagal in nature and has unintentional weight loss for the past month of 12 pounds and poor appetite. RECOMMENDATIONS: At this time we recommend: 1. Carotid Doppler. 2. Orthostatic vital signs. 3. Adequate hydration throughout the day and better sleep hygiene. At this time, neuro exam is nonfocal. CAT scan of the head showed no acute intracranial abnormalities. Continue current present medical management. Jose Manzanares MD
--- NOTE | 2018-04-15 17:45 | US ---
PROCEDURE: Bilateral carotid artery duplex ultrasound HISTORY: Carotid stenosis PHYSICIAN(S): Jaylen Vickers MD. TECHNIQUE: Duplex sonography and color-flow Doppler were used to evaluate the carotid bifurcations and limited segments of the vertebral arteries bilaterally. FINDINGS: There is mild smooth hypoechoic plaque noted at the carotid bifurcations bilaterally. The peak systolic velocity in the proximal right internal carotid artery is 95 cm/sec. This corresponds to a 20 to 39% proximal right ICA stenosis. Normal systolic velocities are noted in the proximal right external carotid artery. There is antegrade flow in the right vertebral artery. The peak systolic velocity in the proximal left internal carotid artery is 99 cm/sec. This corresponds to a 20 to 39% proximal left ICA stenosis. Normal systolic velocities are noted in the proximal left external carotid artery. There is antegrade flow in the left vertebral artery. IMPRESSION: 1. Bilateral 20-39% proximal ICA stenoses. 2. Antegrade flow in both vertebral arteries.
--- NOTE | 2018-04-15 20:48 | CON ---
DATE: 04/15/2018 CARDIOLOGY CONSULTATION HISTORY: The patient is a 67-year-old woman, who presents with a sudden syncopal episode. Her description is consistent with a vasovagal episode. The patient has been complaining of intermittent orthostatic hypotension recently. She has had a recent significant weight loss. She suffers from hypertension and has had the same medications throughout. In addition, she is on metformin for diabetes mellitus. There is a question of hypercholesterolemia as well. No previous cardiac history. No angina. No shortness of breath. No seizure disorder. SOCIAL HISTORY: She denies smoking. REVIEW OF SYSTEMS: Fourteen-point review of systems is reviewed in detail. No additional cardiac symptoms are noted. PHYSICAL EXAMINATION: VITAL SIGNS: Blood pressure varies from 118-132 without orthostatic changes. The pulse rate is in the 60s. NECK: Negative JVD. LUNGS: Without rales. CARDIAC: Heart rate S1, S2 with a 2/6 systolic murmur at the apex of the heart. EXTREMITIES: Without edema. EKG shows normal sinus rhythm with no acute changes. LABORATORY DATA: Hemoglobin is 8.1. Chemistries, BUN and creatinine are unremarkable. The glucose is 144. Troponin is negative x1. IMPRESSION: 1. Syncope. 2. Syncope, may be transient hypotension and orthostatic changes secondary to hypertensive medications, which need to be adjusted after her weight loss. 3. Diabetes mellitus. 4. Hypercholesterolemia. 5. Marked anemia. PLAN: Given these findings, we will obtain an echocardiogram to evaluate her LV function. We will hold off on her lisinopril and her blood pressure medications for now. An echocardiogram has been ordered. We will need to investigate the cause of her anemia. Jaylen Martin MD
--- NOTE | 2018-04-15 21:05 | CARD ---
APPROVED REPORT Date of service: 04/14/2018 EKG Measurement Heart [id number] <Conclusion> Normal sinus rhythm Possible Left atrial enlargement ST and T wave abnormality, consider lateral ischemia Abnormal ECG
[2018-04-16] MEDS ORDERED: Barium Sulfate Susp 2.1% w/v, 2.0% w/w 450 mL Bottle PO ONE (06:19)
[2018-04-16 06:57] LABS: BASO # 0.03 K/mm3 (0.0-2.0); BASO % 0.2 % (0.0-3.0); EOS # 0.4 (0.0-0.7); EOS % 2.3 % (1.5-5.0); GRAN # 11.2 (1.4-6.5); GRAN % 72.9 % (50.0-68.0); HEMOGLOBIN 8.8 g/dL (12.0-16.0); LYMPH # 2.5 (1.2-3.4); LYMPH % 16.4 % (22.0-35.0); MEAN CELL VOLUME 84.6 fl (80.0-105.0); MEAN CORPUSCULAR HEMOGLOBIN 25.6 pg (25.0-35.0); MEAN CORPUSCULAR HGB CONC 30.2 g/dl (31.0-37.0); MEAN PLATELET VOLUME 8.4 fl (7.0-11.0); MONO # 1.3 (0.1-0.6); MONO % 8.2 % (1.0-6.0); RBC 3.44 10^6/uL (3.5-6.1); RED CELL DISTRIBUTION WIDTH 15.6 % (11.5-14.5); WHITE BLOOD COUNT 15.4 10^3/uL (4.5-11.0)
[2018-04-16 07:08] LABS: IRON 20 ug/dL (45-180)
[2018-04-16 07:17] LABS: % IRON SATURATION 10 % (20-55); TOTAL IRON BINDING CAPACITY 199 ug/dL (265-497)
[2018-04-16 07:27] LABS: ALB/GLOB RATIO 0.8 (1.1-1.8); ALBUMIN 3.3 g/dL (3.0-4.8); ALT/SGPT 21 U/L (7-56); AST/SGOT 41 U/L (14-36); BLOOD UREA NITROGEN 15 mg/dL (7-21); CALCIUM 9.3 mg/dL (8.4-10.5); GFR NON-AFRICAN AMERICAN > 60; HDL CHOLESTEROL 22 mg/dL (29-60)
[2018-04-16 07:33] LABS: LDL CHOLESTEROL 53 mg/dL (0-129)
[2018-04-16] MEDS: Insulin Lispro (humaLOG) LOW Coverage SC SCH ×3 (08:57→18:41)
--- NOTE | 2018-04-16 09:39 | CP.PCM.PN ---
<Luis Alfredo Aburtoima - Last Filed: 04/16/18 20:26> Subjective - Date & Time of Evaluation Date of Evaluation: 04/16/18 Time of Evaluation: 10:00 - Subjective Subjective: Pgy3 Medicine Progress note for Dr. Fields Patient seen and examined at bedside. Nursing reported no acute events overnight. Patient was resting comfortably this AM and reported feeling better. Overnight she did admit to having chills and night sweats but is no longer complaining of lightheadedness and dizziness. Patient has not worked with physical therapy yet. She denied other acute complaints of fever, chest pain, palpitations, SOB, cough, abd pain, nausea, vomiting, bowel/bladder complaints, pain/swelling in her legs b/l. Patient is eager to eat as she has been NPO for CT abdomen/pelvis today. Objective - Vital Signs/Intake and Output Vital Signs (last 24 hours): Temp Pulse Resp BP Pulse Ox 98.1 F 67 20 118/65 95 04/16/18 08:18 04/16/18 08:18 04/16/18 08:18 04/16/18 08:18 04/16/18 08:18 Intake and Output: 04/16/18 04/16/18 06:59 18:59 Intake Total 1180 Balance 1180 - Medications Medications: Current Medications Acetaminophen (Tylenol 325mg Tab) 650 mg PO Q6H PRN PRN Reason: Pain, Mild (1-3) Last Admin: 04/15/18 20:16 Dose: 650 mg Dextrose (Dextrose 50% Inj) 0 ml IV STAT PRN; Protocol PRN Reason: Hypoglycemia Protocol Duloxetine HCl (Cymbalta) 30 mg PO HS ELI Gabapentin (Neurontin) 300 mg PO DAILY [facility]; Protocol Last Admin: 04/15/18 10:34 Dose: Not Given Dextrose (Dextrose 5% In Water 1000 Ml) 1,000 mls @ 0 mls/hr IV .Q0M PRN; Protocol PRN Reason: Hypoglycemia Protocol Insulin Human Lispro (Humalog Low) 0 units [facility]; Protocol Last Admin: 04/16/18 08:57 Dose: Not Given Celecoxib [Celebrex] (200 Mg (Home Med)) 200 mg PO DAILY PRN PRN Reason: Pain, moderate (4-7) - Labs Labs: 04/16/18 06:00 04/16/18 06:00 - Constitutional Appears: Non-toxic, No Acute Distress - Head Exam Head Exam: ATRAUMATIC, NORMAL INSPECTION, NORMOCEPHALIC - Eye Exam Eye Exam: EOMI, Normal appearance, PERRL. absent: Conjunctival injection, Scleral icterus - ENT Exam ENT Exam: Mucous Membranes Moist - Neck Exam Neck Exam: Full ROM - Respiratory Exam Respiratory Exam: Clear to Ausculation Bilateral, NORMAL BREATHING PATTERN. absent: Accessory Muscle Use, Rales, Rhonchi, Wheezes, Respiratory Distress - Cardiovascular Exam Cardiovascular Exam: REGULAR RHYTHM, +S1, +S2 - GI/Abdominal Exam GI & Abdominal Exam: Soft, Normal Bowel Sounds. absent: Firm, Guarding, Rigid, Tenderness - Rectal Exam Rectal Exam: Deferred - Extremities Exam Extremities Exam: Normal Capillary Refill, Normal Inspection. absent: Pedal Edema, Tenderness - Back Exam Back Exam: NORMAL INSPECTION. absent: rash noted - Neurological Exam Neurological Exam: Alert, Awake, CN II-XII Intact, Oriented x3 - Psychiatric Exam Psychiatric exam: Normal Affect, Normal Mood - Skin Skin Exam: Dry, Intact, Normal Color, Warm Assessment and Plan - Assessment and Plan (Free Text) Assessment: 1. LLQ abdominal mass vs abscess 2. Syncope 3. Normocytic Anemia 4. Thrombocytosis 5. Leukocytosis 6. HTN 7. DM2 8. Hypercholesterolemia 9. Cervical radiculopathy 10. Lumbar disc herniation and radiculopathy 11. LLE sciatica 12. GERD Plan: CT abd/pelvis reviewed. Surgery and GI consulted. As per surgery likely acute diverticulitis. Patient kept NPO at this time on fluids. Patient started on Zosyn as per ID. Will continue bowel rest and serial abdominal exams. IR also consulted for possible CT guided drainage vs aspiration of 7cm LLQ mass. Pending complete sepsis work up. As per heme/onc patient to have flow cytometry on peripheral blood fro leukemia/lymphoma panel and also for BCR-ABL. Tumor markers CEA, CA19-9, CA125 all wnl. Blood and urine cultures negative thus far. Thrombocytosis might be reactive. Consider IV venofer for low H&H. As per cardio patient's telemetry has been discontinued and patient's antihtn meds on hold. Patient has been scheduled for an outpatient Lexiscan next week. Patient walked with PT who recommends discharge home when medically optimized. Discussed with Dr. Donnie Aburto PGY3 <Lonny Fields - Last Filed: 04/16/18 20:45> Objective - Vital Signs/Intake and Output Vital Signs (last 24 hours): Temp Pulse Resp BP Pulse Ox 98.1 F 78 20 118/65 95 04/16/18 08:18 04/16/18 14:00 04/16/18 08:18 04/16/18 08:18 04/16/18 08:18 Intake and Output: 04/16/18 04/17/18 18:59 06:59 Intake Total 2340 Balance 2340 - Medications Medications: Current Medications Acetaminophen (Tylenol 325mg Tab) 650 mg PO Q6H PRN PRN Reason: Pain, Mild (1-3) Last Admin: 04/15/18 20:16 Dose: 650 mg Dextrose (Dextrose 50% Inj) 0 ml IV STAT PRN; Protocol PRN Reason: Hypoglycemia Protocol Duloxetine HCl (Cymbalta) 30 mg PO HS ELI Famotidine (Pepcid) 20 mg PO 1000,2200 ELI Gabapentin (Neurontin) 300 mg PO DAILY [facility]; Protocol Last Admin: 04/16/18 10:24 Dose: Not Given Dextrose (Dextrose 5% In Water 1000 Ml) 1,000 mls @ 0 mls/hr IV .Q0M PRN; Protocol PRN Reason: Hypoglycemia Protocol Piperacillin Sod/Tazobactam Sod (Zosyn 3.375 In Ns 100ml) 100 mls @ 25 mls/hr IVPB Q8 [facility]; Protocol Stop: 04/23/18 11:16 Last Admin: 04/16/18 18:42 Dose: Not Given Dextrose/Sodium Chloride (Dextrose 5%/0.45% Ns 1000 Ml) 1,000 mls @ 100 mls/hr IV .Q10H ELI Insulin Human Lispro (Humalog Low) 0 units SC ACHS [facility]; Protocol Last Admin: 04/16/18 18:41 Dose: Not Given Celecoxib [Celebrex] (200 Mg (Home Med)) 200 mg PO DAILY PRN PRN Reason: Pain, moderate (4-7) - Labs Labs: 04/16/18 06:00 04/16/18 06:00 PT 17.3 SECONDS (9.4-12.5) H 04/16/18 13:45 INR 1.49 04/16/18 13:45 APTT 25.8 Seconds (25.1-36.5) 04/16/18 13:45 Assessment and Plan - Assessment and Plan (Free Text) Plan: Pt seen and examined by me. I have reviewed the note of the biomedical engineering aide and I agree with it. I have discussed the assessment and plan with the resident. I have reviewed the medications and the last labs. Pt with CT that shows mass in LLQ. Heme is following and appreciate input. Iron studies is pending. Pt is on Zosyn for Abx. Anemia chronic with iron def.
--- NOTE | 2018-04-16 09:41 | CON ---
DATE: 04/16/2018 CONSULT REQUESTED BY: Lonny Fields MD REASON FOR CONSULTATION: Syncope, anemia. HISTORY OF PRESENT ILLNESS: Ms. Horner is a 67-year-old female, presented to the ED for not feeling well. She was walking and felt dizzy. Hemoglobin was found to be 9 g/dL, declined to 8 g/dL during hospitalization. She also reports 12 pounds of weight loss in the past 4 weeks. No shortness of breath. No cough with expectoration. No occult bleeding. She has a history of GERD in the past. PAST MEDICAL HISTORY: GERD, hypertension, diabetes mellitus type 2. PAST SURGICAL HISTORY: Spine surgery, left breast removal. SOCIAL HISTORY: Former smoker. No history of alcohol abuse. ALLERGIES: NO KNOWN DRUG ALLERGIES. MEDICATIONS: Cymbalta 30 mg daily, Nexium 40 mg daily, losartan-hydrochlorothiazide, Spiriva. REVIEW OF SYSTEMS: As per HPI. Rest of 12-point review of systems is reviewed and negative. PHYSICAL EXAMINATION GENERAL: Comfortable in bed, in no acute distress. VITAL SIGNS: Temperature 98, heart rate 100 per minute, respiratory rate 18 per minute, blood pressure 111/74, pulse ox 100% on room air. HEENT: Pallor positive. NECK: No lymphadenopathy. CHEST: Air entry present and equal bilaterally. No added sound. CARDIOVASCULAR: S1, S2 normal. No murmur, no gallop. ABDOMEN: Soft, nontender. No hepatosplenomegaly. SPINE: Nontender. SKIN: No petechiae. No rash. LABORATORY DATA: White count 15, hemoglobin 8.8, hematocrit 29.1, platelet count . Sodium 140, potassium 4, creatinine 0.9. Magnesium 2, iron 20, iron saturation 10. CEA 2.1. TSH 1.94. ASSESSMENT: 1. Anemia. 2. Leukocytosis. 3. Thrombocytosis. 4. Syncope. 5. Hypertension. 6. Gastroesophageal reflux disease. PLAN: She has leukocytosis, anemia, and thrombocytosis. Iron is low at 20. Thrombocytosis might be reactive. She might have occult GI bleed because of iron deficiency. Other differential diagnosis is myeloproliferative disorder with leukocytosis and thrombocytosis. CEA is not elevated. CAT scan of the abdomen and pelvis to rule out any mass lesion ordered to be done today. We will send the flow cytometry on peripheral blood for leukemia/lymphoma panel and also for BCR-ABL testing. Hemoglobin is 8.8. We will consider IV iron which can be initiated upon discharge from the hospital. She was evaluated by Neurology, Dr. Manzanares. We will continue to follow. Thank you Dr. Fields for allowing us to participate in Ms. Horner's care. Kimberly Ferguson MD TAYA
[2018-04-16] MEDS ORDERED: Iohexol 350 MG/100 ML VIAL ONE (10:08)
--- NOTE | 2018-04-16 10:47 | CP.PCM.CON ---
<Chriss Parrish - Last Filed: 04/16/18 12:56> History of Present Illness - History of Present Illness History of Present Illness: Infectious disease consult note: 67yo female PMHx HTN, GERD, DM2, lumbar disc herniation and LLE sciatica presents with episode of syncope. Patient reportedly had a syncopal episode following coming home from groceries. She tried to stand up from a sitted posit ion when she felt lightheaded and fell down. She woke up and she was on the floor of bowel/bladder control, biting of the tongue. She denies any history of seizures. She does complain of 20 pound unintentional weight loss over 3 months. Denies any headache or neck pain. ID consulted for leukocytosis. 12 Point ROS performed and neg other than stated above PMHx: as above PSurgHx: L breast cyst removal. spinal surg ALL: NKDA FamHx: mother with DM and HTN a; dad passed of [place] 64yo SocHx: prior tobacco use quit 2-3 months ago; used to smoke 4-5cigarettes/day for 30 years;denies any etoh or drug use Review of Systems - Review of Systems All systems: reviewed and no additional remarkable complaints except Past Patient History - Infectious Disease Hx of Infectious Diseases: None - Tetanus Immunizations Tetanus Immunization: Unknown - Past Social History Smoking Status: Former Smoker - CARDIAC Hx Cardiac Disorders: Yes Hx Hypertension: Yes - PULMONARY Hx Respiratory Disorders: No - NEUROLOGICAL Hx Neurological Disorder: Yes Hx Dizziness: Yes - HEENT Hx HEENT Problems: No - RENAL Hx Chronic Kidney Disease: No - ENDOCRINE/METABOLIC Hx Endocrine Disorders: Yes Hx Diabetes Mellitus Type 2: Yes - HEMATOLOGICAL/ONCOLOGICAL Hx Blood Disorders: No - INTEGUMENTARY Hx Dermatological Problems: No - MUSCULOSKELETAL/RHEUMATOLOGICAL Hx Musculoskeletal Disorders: Yes Hx Arthritis: Yes Hx Falls: Yes (04/14/18) Hx Unsteady Gait: Yes - GASTROINTESTINAL Hx Gastrointestinal Disorders: No - GENITOURINARY/GYNECOLOGICAL Hx Genitourinary Disorders: No - PSYCHIATRIC Hx Psychophysiologic Disorder: No - SURGICAL HISTORY Hx Surgeries: Yes Hx Appendectomy: Yes Other/Comment: spine surgery. L breast cyst removed. Ovarain cyst removal x6. Tubal ligation - ANESTHESIA Hx Anesthesia Reactions: No Hx Malignant Hyperthermia: No Meds Allergies/Adverse Reactions: Allergies Allergy/AdvReac Type Severity Reaction Status Date / Time No Known Allergies Allergy Verified 04/05/14 22:55 - Medications Medications: Current Medications Acetaminophen (Tylenol 325mg Tab) 650 mg PO Q6H PRN PRN Reason: Pain, Mild (1-3) Last Admin: 04/15/18 20:16 Dose: 650 mg Dextrose (Dextrose 50% Inj) 0 ml IV STAT PRN; Protocol PRN Reason: Hypoglycemia Protocol Duloxetine HCl (Cymbalta) 30 mg PO HS ELI Gabapentin (Neurontin) 300 mg PO DAILY [facility]; Protocol Last Admin: 04/16/18 10:24 Dose: Not Given Dextrose (Dextrose 5% In Water 1000 Ml) 1,000 mls @ 0 mls/hr IV .Q0M PRN; Protocol PRN Reason: Hypoglycemia Protocol Insulin Human Lispro (Humalog Low) 0 units SC ACHS [facility]; Protocol Last Admin: 04/16/18 08:57 Dose: Not Given Celecoxib [Celebrex] (200 Mg (Home Med)) 200 mg PO DAILY PRN PRN Reason: Pain, moderate (4-7) Physical Exam - Constitutional Appears: No Acute Distress - Head Exam Head Exam: ATRAUMATIC, NORMOCEPHALIC - Eye Exam Eye Exam: EOMI - ENT Exam ENT Exam: Mucous Membranes Moist - Respiratory Exam Respiratory Exam: Clear to Auscultation Bilateral. absent: Rales, Rhonchi, Wheezes - Cardiovascular Exam Cardiovascular Exam: REGULAR RHYTHM, RRR, +S1, +S2 - GI/Abdominal Exam GI & Abdominal Exam: Normal Bowel Sounds, Soft - Extremities Exam Extremities exam: Negative for: calf tenderness, pedal edema - Neurological Exam Neurological exam: Alert, CN II-XII Intact, Oriented x3 - Psychiatric Exam Psychiatric exam: Normal Affect, Normal Mood - Skin Skin Exam: Dry, Warm Results - Vital Signs Recent Vital Signs: Last Vital Signs Temp 98.1 F 04/16/18 08:18 Pulse 67 04/16/18 08:18 Resp 20 04/16/18 08:18 BP 118/65 04/16/18 08:18 Pulse Ox 95 04/16/18 08:18 - Labs Result Diagrams: 04/16/18 06:00 04/16/18 06:00 Labs: Laboratory Results - last 24 hr 04/15/18 04/15/18 04/15/18 11:00 11:00 13:05 WBC 15.0 H D RBC 3.14 L Hgb 8.1 L Hct 26.7 L MCV 85.0 MCH 25.8 MCHC 30.3 L RDW 15.6 H Plt Count 586 H MPV 8.3 Gran % Lymph % (Auto) [place] % (Auto) Eos % (Auto) Baso % (Auto) Gran # Lymph # (Auto) [place] # (Auto) Eos # (Auto) Baso # (Auto) Retic Count Sodium Potassium Chloride Carbon Dioxide Anion Gap BUN Creatinine Est GFR ( Amer) Est GFR (Non-Af Amer) POC Glucose (mg/dL) 138 H Random Glucose Hemoglobin A1c 7.2 H Calcium Phosphorus Magnesium Iron TIBC % Saturation Total Bilirubin AST ALT Alkaline Phosphatase Total Protein Albumin Globulin Albumin/Globulin Ratio Triglycerides Cholesterol LDL Cholesterol Direct HDL Cholesterol Carcinoembryonic Ag 04/15/18 04/16/18 04/16/18 21:27 06:00 06:00 WBC 15.4 H RBC 3.44 L Hgb 8.8 L Hct 29.1 L MCV 84.6 MCH 25.6 MCHC 30.2 L RDW 15.6 H Plt Count 663 H MPV 8.4 Gran % 72.9 H Lymph % (Auto) 16.4 L [place] % (Auto) 8.2 H Eos % (Auto) 2.3 Baso % (Auto) 0.2 Gran # 11.20 H Lymph # (Auto) 2.5 [place] # (Auto) 1.3 H Eos # (Auto) 0.4 Baso # (Auto) 0.03 Retic Count 2.51 H Sodium Potassium Chloride Carbon Dioxide Anion Gap BUN Creatinine Est GFR ( Amer) Est GFR (Non-Af Amer) POC Glucose (mg/dL) 107 Random Glucose Hemoglobin A1c Calcium Phosphorus Magnesium Iron 20 L TIBC 199 L % Saturation 10 L Total Bilirubin AST ALT Alkaline Phosphatase Total Protein Albumin Globulin Albumin/Globulin Ratio Triglycerides Cholesterol LDL Cholesterol Direct HDL Cholesterol Carcinoembryonic Ag 04/16/18 04/16/18 04/16/18 06:00 06:00 08:14 WBC RBC Hgb Hct MCV MCH MCHC RDW Plt Count MPV Gran % Lymph % (Auto) [place] % (Auto) Eos % (Auto) Baso % (Auto) Gran # Lymph # (Auto) [place] # (Auto) Eos # (Auto) Baso # (Auto) Retic Count Sodium 140 Potassium 4.0 Chloride 105 Carbon Dioxide 31 Anion Gap 7 L BUN 15 Creatinine 0.9 Est GFR ( Amer) > 60 Est GFR (Non-Af Amer) > 60 POC Glucose (mg/dL) 121 H Random Glucose 115 H Hemoglobin A1c Calcium 9.3 Phosphorus 4.1 Magnesium 2.5 H Iron TIBC % Saturation Total Bilirubin 0.5 AST 41 H ALT 21 Alkaline Phosphatase 94 Total Protein 7.3 Albumin 3.3 Globulin 4.0 Albumin/Globulin Ratio 0.8 L Triglycerides 89 Cholesterol 104 L LDL Cholesterol Direct 53 HDL Cholesterol 22 L Carcinoembryonic Ag 2.1 Assessment & Plan - Assessment and Plan (Free Text) Assessment: 67yo female PMHx HTN, GERD, DM2, lumbar disc herniation and LLE sciatica presents with an episode of syncope. Found to have leukocytosis. - Leukocutosis trending down this am wbc of 15 - Heme/onc consulted for anemia and oncological work up - F/u echo and CTAP - Currently monitoring off of abx at this time - F/u septic work up - Blood cultures neg thus far - CXR and UA neg - Cont to monitor for any changes Case and plan was reviewed and discussed with Dr Davidson. <Servando Davidson - Last Filed: 04/16/18 17:42> Meds - Medications Medications: Current Medications Acetaminophen (Tylenol 325mg Tab) 650 mg PO Q6H PRN PRN Reason: Pain, Mild (1-3) Last Admin: 04/15/18 20:16 Dose: 650 mg Dextrose (Dextrose 50% Inj) 0 ml IV STAT PRN; Protocol PRN Reason: Hypoglycemia Protocol Duloxetine HCl (Cymbalta) 30 mg PO HS [facility]I Famotidine (Pepcid) 20 mg PO 1000,2200 [facility] Gabapentin (Neurontin) 300 mg PO DAILY [facility]; Protocol Last Admin: 04/16/18 10:24 Dose: Not Given Dextrose (Dextrose 5% In Water 1000 Ml) 1,000 mls @ 0 mls/hr IV .Q0M PRN; Protocol PRN Reason: Hypoglycemia Protocol Piperacillin Sod/Tazobactam Sod (Zosyn 3.375 In Ns 100ml) 100 mls @ 25 mls/hr IVPB Q8 [facility]; Protocol Stop: 04/23/18 11:16 Last Admin: 04/16/18 13:37 Dose: 25 mls/hr Insulin Human Lispro (Humalog Low) 0 units SC ACHS [facility]; Protocol Last Admin: 04/16/18 13:37 Dose: 3 units Celecoxib [Celebrex] (200 Mg (Home Med)) 200 mg PO DAILY PRN PRN Reason: Pain, moderate (4-7) Results - Vital Signs Recent Vital Signs: Last Vital Signs Temp 98.1 F 04/16/18 08:18 Pulse 67 04/16/18 08:18 Resp 20 04/16/18 08:18 BP 118/65 04/16/18 08:18 Pulse Ox 95 04/16/18 08:18 - Labs Result Diagrams: 04/16/18 06:00 04/16/18 06:00 Labs: Laboratory Results - last 24 hr 04/15/18 04/16/18 04/16/18 21:27 06:00 06:00 WBC 15.4 H RBC 3.44 L Hgb 8.8 L Hct 29.1 L MCV 84.6 MCH 25.6 MCHC 30.2 L RDW 15.6 H Plt Count 663 H MPV 8.4 Gran % 72.9 H Lymph % (Auto) 16.4 L [place] % (Auto) 8.2 H Eos % (Auto) 2.3 Baso % (Auto) 0.2 Gran # 11.20 H Lymph # (Auto) 2.5 [place] # (Auto) 1.3 H Eos # (Auto) 0.4 Baso # (Auto) 0.03 Retic Count 2.51 H PT INR APTT Sodium Potassium Chloride Carbon Dioxide Anion Gap BUN Creatinine Est GFR ( Amer) Est GFR (Non-Af Amer) POC Glucose (mg/dL) 107 Random Glucose Calcium Phosphorus Magnesium Iron 20 L TIBC 199 L % Saturation 10 L Transferrin Ferritin Total Bilirubin AST ALT Alkaline Phosphatase Total Protein Albumin Globulin Albumin/Globulin Ratio Triglycerides Cholesterol LDL Cholesterol Direct HDL Cholesterol Carcinoembryonic Ag CA 19-9 Antigen CA 125 Antigen 04/16/18 04/16/18 04/16/18 06:00 06:00 06:00 WBC RBC Hgb Hct MCV MCH MCHC RDW Plt Count MPV Gran % Lymph % (Auto) [place] % (Auto) Eos % (Auto) Baso % (Auto) Gran # Lymph # (Auto) [place] # (Auto) Eos # (Auto) Baso # (Auto) Retic Count PT INR APTT Sodium 140 Potassium 4.0 Chloride 105 Carbon Dioxide 31 Anion Gap 7 L BUN 15 Creatinine 0.9 Est GFR ( Amer) > 60 Est GFR (Non-Af Amer) > 60 POC Glucose (mg/dL) Random Glucose 115 H Calcium 9.3 Phosphorus 4.1 Magnesium 2.5 H Iron TIBC % Saturation Transferrin Ferritin 798.0 Total Bilirubin 0.5 AST 41 H ALT 21 Alkaline Phosphatase 94 Total Protein 7.3 Albumin 3.3 Globulin 4.0 Albumin/Globulin Ratio 0.8 L Triglycerides 89 Cholesterol 104 L LDL Cholesterol Direct 53 HDL Cholesterol 22 L Carcinoembryonic Ag 2.1 CA 19-9 Antigen 2.6 CA 125 Antigen 16.7 04/16/18 04/16/18 04/16/18 06:30 08:14 11:42 WBC RBC Hgb Hct MCV MCH MCHC RDW Plt Count MPV Gran % Lymph % (Auto) [place] % (Auto) Eos % (Auto) Baso % (Auto) Gran # Lymph # (Auto) [place] # (Auto) Eos # (Auto) Baso # (Auto) Retic Count PT INR APTT Sodium Potassium Chloride Carbon Dioxide Anion Gap BUN Creatinine Est GFR ( Amer) Est GFR (Non-Af Amer) POC Glucose (mg/dL) 121 H 240 H Random Glucose Calcium Phosphorus Magnesium Iron TIBC % Saturation Transferrin 140.90 L Ferritin Total Bilirubin AST ALT Alkaline Phosphatase Total Protein Albumin Globulin Albumin/Globulin Ratio Triglycerides Cholesterol LDL Cholesterol Direct HDL Cholesterol Carcinoembryonic Ag CA 19-9 Antigen CA 125 Antigen 04/16/18 04/16/18 13:45 17:23 WBC RBC Hgb Hct MCV MCH MCHC RDW Plt Count MPV Gran % Lymph % (Auto) [place] % (Auto) Eos % (Auto) Baso % (Auto) Gran # Lymph # (Auto) [place] # (Auto) Eos # (Auto) Baso # (Auto) Retic Count PT 17.3 H INR 1.49 APTT 25.8 Sodium Potassium Chloride Carbon Dioxide Anion Gap BUN Creatinine Est GFR ( Amer) Est GFR (Non-Af Amer) POC Glucose (mg/dL) 83 Random Glucose Calcium Phosphorus Magnesium Iron TIBC % Saturation Transferrin Ferritin Total Bilirubin AST ALT Alkaline Phosphatase Total Protein Albumin Globulin Albumin/Globulin Ratio Triglycerides Cholesterol LDL Cholesterol Direct HDL Cholesterol Carcinoembryonic Ag CA 19-9 Antigen CA 125 Antigen Assessment & Plan - Assessment and Plan (Free Text) Assessment: Infectious diseases Attending Physician Attestation Patient seen and examined, discussed with medical office worker. I have reviewed the patient's history of present illness, past medical, social, personal and family histories, pertinent physical exam findings, course so far in this hospital admission, pertinent laboratory and imaging results. I agree with the above findings, assessment and plan. In addition, start patient on Zosyn - patient has necrotic mass or abscess with SIRS in the left lower quadrant as seen on CT A/P. Follow up surgery and GI evaluation and recommendations.
--- NOTE | 2018-04-16 11:02 | CT ---
Date of service: 04/16/2018 PROCEDURE: CT Abdomen and Pelvis with contrast HISTORY: severe anemia, r/o abdominal malignancy COMPARISON: None. TECHNIQUE: Contrast dose: 100 cc of Omni 350 Radiation dose: Total exam DLP = 550.95 mGy-cm. This CT exam was performed using one or more of the following dose reduction techniques: Automated exposure control, adjustment of the mA and/or kV according to patient size, and/or use of iterative reconstruction technique. FINDINGS: LOWER THORAX: Unremarkable. LIVER: Unremarkable. No gross lesion or ductal dilatation. GALLBLADDER AND BILE DUCTS: Unremarkable. PANCREAS: Unremarkable. No gross lesion or ductal dilatation. SPLEEN: Unremarkable. ADRENALS: Unremarkable. No mass. KIDNEYS AND URETERS: There is obstruction or compression of the distal left ureter at the level of the left lower quadrant mass. There is mild hydronephrosis. VASCULATURE: Unremarkable. No aortic aneurysm. No aortic atherosclerotic calcification or mural plaque present. BOWEL: There is a complex mass in the left lower quadrant measuring approximately 7 cm in diameter. This has spiculated borders. There are pockets of fluid and air within this mass. There is loss of the fat planes around the left iliopsoas muscle and the left pelvic sidewall. Findings are most consistent with a necrotic mass. An abscess is also possible. There is mural thickening in the adjacent sigmoid colon but no obvious diverticular disease. APPENDIX: Normal appendix. PERITONEUM: Unremarkable. No free fluid. No free air. LYMPH NODES: Unremarkable. No enlarged lymph nodes. BLADDER: Unremarkable. REPRODUCTIVE: Unremarkable. BONES: No acute fracture. OTHER FINDINGS: None. IMPRESSION: There is a complex mass in the left lower quadrant measuring approximately 7 cm in diameter. This has spiculated borders. There are pockets of fluid and air within this mass. There is loss of the fat planes around the left iliopsoas muscle and the left pelvic sidewall. Findings are most consistent with a necrotic mass. An abscess is also possible. There is mural thickening in the adjacent sigmoid colon but no obvious diverticular disease.
--- NOTE | 2018-04-16 13:00 | CP.PCM.CON ---
History of Present Illness - History of Present Illness History of Present Illness: Surgery Consult Note- Dr. Ayala Reason for Consult: LLQ mass vs abscess 67F pmxh significant for HTN, GERD, DM2, lumbar disc herniation and LLE sciatica [place] [facility] [place]. During hospital work up patient was f ound to have a mass/inflammatory changes in the left lower quadrant of the abdomen. Stated 20 pound unintentional weight loss over 3 months. Denies chest pain, shortness of breath, vomiting 12 Point ROS performed and neg other than stated above PMH: stated above PSH: L breast cyst removal. spinal surg ALL: NKDA SocHx: prior tobacco use quit 2-3 months ago; used to smoke 4-5cigarettes/day for 30 years;denies any etoh or drug use FH: mother with DM and HTN a; dad passed of [place] 64yo Review of Systems - Review of Systems All systems: reviewed and no additional remarkable complaints except - Constitutional Constitutional: As Per HPI Past Patient History - Infectious Disease Hx of Infectious Diseases: None - Tetanus Immunizations Tetanus Immunization: Unknown - Past Social History Smoking Status: Former Smoker - CARDIAC Hx Cardiac Disorders: Yes Hx Hypertension: Yes - PULMONARY Hx Respiratory Disorders: No - NEUROLOGICAL Hx Neurological Disorder: Yes Hx Dizziness: Yes - HEENT Hx HEENT Problems: No - RENAL Hx Chronic Kidney Disease: No - ENDOCRINE/METABOLIC Hx Endocrine Disorders: Yes Hx Diabetes Mellitus Type 2: Yes - HEMATOLOGICAL/ONCOLOGICAL Hx Blood Disorders: No - INTEGUMENTARY Hx Dermatological Problems: No - MUSCULOSKELETAL/RHEUMATOLOGICAL Hx Musculoskeletal Disorders: Yes Hx Arthritis: Yes Hx Falls: Yes (04/14/18) Hx Unsteady Gait: Yes - GASTROINTESTINAL Hx Gastrointestinal Disorders: No - GENITOURINARY/GYNECOLOGICAL Hx Genitourinary Disorders: No - PSYCHIATRIC Hx Psychophysiologic Disorder: No - SURGICAL HISTORY Hx Surgeries: Yes Hx Appendectomy: Yes Other/Comment: spine surgery. L breast cyst removed. Ovarain cyst removal x6. Tubal ligation - ANESTHESIA Hx Anesthesia Reactions: No Hx Malignant Hyperthermia: No Meds Allergies/Adverse Reactions: Allergies Allergy/AdvReac Type Severity Reaction Status Date / Time No Known Allergies Allergy Verified 04/05/14 22:55 - Medications Medications: Current Medications Acetaminophen (Tylenol 325mg Tab) 650 mg PO Q6H PRN PRN Reason: Pain, Mild (1-3) Last Admin: 04/15/18 20:16 Dose: 650 mg Dextrose (Dextrose 50% Inj) 0 ml IV STAT PRN; Protocol PRN Reason: Hypoglycemia Protocol Duloxetine HCl (Cymbalta) 30 mg PO HS ELI Famotidine (Pepcid) 20 mg PO 1000,2200 ELI Gabapentin (Neurontin) 300 mg PO DAILY ELI; Protocol Last Admin: 04/16/18 10:24 Dose: Not Given Dextrose (Dextrose 5% In Water 1000 Ml) 1,000 mls @ 0 mls/hr IV .Q0M PRN; Protocol PRN Reason: Hypoglycemia Protocol Piperacillin Sod/Tazobactam Sod (Zosyn 3.375 In Ns 100ml) 100 mls @ 25 mls/hr IVPB Q8 ELI; Protocol Stop: 04/23/18 11:16 Insulin Human Lispro (Humalog Low) 0 units SC ACHS ELI; Protocol Last Admin: 04/16/18 08:57 Dose: Not Given Celecoxib [Celebrex] (200 Mg (Home Med)) 200 mg PO DAILY PRN PRN Reason: Pain, moderate (4-7) Physical Exam - Constitutional Appears: Non-toxic, No Acute Distress - Head Exam Head Exam: ATRAUMATIC - Eye Exam Eye Exam: EOMI. absent: Scleral icterus - ENT Exam ENT Exam: Mucous Membranes Moist - Respiratory Exam Respiratory Exam: NORMAL BREATHING PATTERN. absent: Accessory Muscle Use, Respiratory Distress - Cardiovascular Exam Cardiovascular Exam: REGULAR RHYTHM. absent: Bradycardia, Tachycardia - GI/Abdominal Exam GI & Abdominal Exam: Soft, Tenderness (tenderness in LLQ). absent: Distended, Firm, Guarding, Hernia, Rebound, Rigid - Extremities Exam Extremities exam: Negative for: calf tenderness - Neurological Exam Neurological exam: Alert, Oriented x3 - Psychiatric Exam Psychiatric exam: Normal Affect - Skin Skin Exam: Intact, Warm Results - Vital Signs Recent Vital Signs: Last Vital Signs Temp 98.1 F 04/16/18 08:18 Pulse 67 04/16/18 08:18 Resp 20 04/16/18 08:18 BP 118/65 04/16/18 08:18 Pulse Ox 95 04/16/18 08:18 - Labs Result Diagrams: 04/17/18 07:00 04/17/18 07:00 Labs: Laboratory Results - last 24 hr 04/15/18 04/15/18 04/15/18 11:00 13:05 21:27 WBC RBC Hgb Hct MCV MCH MCHC RDW Plt Count MPV Gran % Lymph % (Auto) [place] % (Auto) Eos % (Auto) Baso % (Auto) Gran # Lymph # (Auto) [place] # (Auto) Eos # (Auto) Baso # (Auto) Retic Count Sodium Potassium Chloride Carbon Dioxide Anion Gap BUN Creatinine Est GFR ( Amer) Est GFR (Non-Af Amer) POC Glucose (mg/dL) 138 H 107 Random Glucose Hemoglobin A1c 7.2 H Calcium Phosphorus Magnesium Iron TIBC % Saturation Transferrin Total Bilirubin AST ALT Alkaline Phosphatase Total Protein Albumin Globulin Albumin/Globulin Ratio Triglycerides Cholesterol LDL Cholesterol Direct HDL Cholesterol Carcinoembryonic Ag 04/16/18 04/16/18 04/16/18 06:00 06:00 06:00 WBC 15.4 H RBC 3.44 L Hgb 8.8 L Hct 29.1 L MCV 84.6 MCH 25.6 MCHC 30.2 L RDW 15.6 H Plt Count 663 H MPV 8.4 Gran % 72.9 H Lymph % (Auto) 16.4 L [place] % (Auto) 8.2 H Eos % (Auto) 2.3 Baso % (Auto) 0.2 Gran # 11.20 H Lymph # (Auto) 2.5 [place] # (Auto) 1.3 H Eos # (Auto) 0.4 Baso # (Auto) 0.03 Retic Count 2.51 H Sodium 140 Potassium 4.0 Chloride 105 Carbon Dioxide 31 Anion Gap 7 L BUN 15 Creatinine 0.9 Est GFR ( Amer) > 60 Est GFR (Non-Af Amer) > 60 POC Glucose (mg/dL) Random Glucose 115 H Hemoglobin A1c Calcium 9.3 Phosphorus 4.1 Magnesium 2.5 H Iron 20 L TIBC 199 L % Saturation 10 L Transferrin Total Bilirubin 0.5 AST 41 H ALT 21 Alkaline Phosphatase 94 Total Protein 7.3 Albumin 3.3 Globulin 4.0 Albumin/Globulin Ratio 0.8 L Triglycerides 89 Cholesterol 104 L LDL Cholesterol Direct 53 HDL Cholesterol 22 L Carcinoembryonic Ag 04/16/18 04/16/18 04/16/18 06:00 06:30 08:14 WBC RBC Hgb Hct MCV MCH MCHC RDW Plt Count MPV Gran % Lymph % (Auto) [place] % (Auto) Eos % (Auto) Baso % (Auto) Gran # Lymph # (Auto) [place] # (Auto) Eos # (Auto) Baso # (Auto) Retic Count Sodium Potassium Chloride Carbon Dioxide Anion Gap BUN Creatinine Est GFR ( Amer) Est GFR (Non-Af Amer) POC Glucose (mg/dL) 121 H Random Glucose Hemoglobin A1c Calcium Phosphorus Magnesium Iron TIBC % Saturation Transferrin 140.90 L Total Bilirubin AST ALT Alkaline Phosphatase Total Protein Albumin Globulin Albumin/Globulin Ratio Triglycerides Cholesterol LDL Cholesterol Direct HDL Cholesterol Carcinoembryonic Ag 2.1 04/16/18 11:42 WBC RBC Hgb Hct MCV MCH MCHC RDW Plt Count MPV Gran % Lymph % (Auto) [place] % (Auto) Eos % (Auto) Baso % (Auto) Gran # Lymph # (Auto) [place] # (Auto) Eos # (Auto) Baso # (Auto) Retic Count Sodium Potassium Chloride Carbon Dioxide Anion Gap BUN Creatinine Est GFR ( Amer) Est GFR (Non-Af Amer) POC Glucose (mg/dL) 240 H Random Glucose Hemoglobin A1c Calcium Phosphorus Magnesium Iron TIBC % Saturation Transferrin Total Bilirubin AST ALT Alkaline Phosphatase Total Protein Albumin Globulin Albumin/Globulin Ratio Triglycerides Cholesterol LDL Cholesterol Direct HDL Cholesterol Carcinoembryonic Ag Assessment & Plan - Assessment and Plan (Free Text) Assessment: 67F w/ LLQ abscess; likely acute diverticulitis Plan: - Acute inflammatory changes; Imaging reviewed in detail w/ Dr. Ayala, no drainable areas at this time - recommend IVF/Abx - Bowel rest - will continue to follow - recommend biopsy if mass suspected - no acute surgical intervention at this time - discussed w/ Dr[facility]
[2018-04-16] MEDS: Piperacillin/Tazobact 3.375 gm 100 ML IVPB SCH ×3 (13:37→22:15)
[2018-04-16 14:04] LABS: INR 1.49; PARTIAL THROMBOPLASTIN TIME 25.8 Seconds (25.1-36.5); PROTHROMBIN TIME 17.3 SECONDS (9.4-12.5)
--- NOTE | 2018-04-16 15:09 | CON ---
DATE: 04/16/2018 GASTROENTEROLOGY CONSULTATION REQUESTING PHYSICIAN: Dr. Fields. REASON FOR CONSULT: I have been asked to see this 67-year-old female, who comes to the hospital with syncopal episode at home. The patient had an episode of dizziness associated with loss of consciousness and falling to the floor. I have been asked to see this patient for anemia. On routine blood work, the patient was found to have a hemoglobin of 8.1. She is also noted to have an elevated white blood cell count 21.6 and a platelet count of 669,000. CT scan of the abdomen and pelvis reveals a spiculated complex mass in the left lower quadrant measuring 7 cm in diameter. There were pockets of fluid and air within this mass. The patient has been having left lower quadrant pain for the last several weeks associated with weight loss. The patient has had multiple gynecologic laparoscopic procedures in the past for ovarian cysts and endometriosis. The patient had an endoscopy and colonoscopy in 02/2016, which revealed a benign fundic gland polyp, gastritis, diverticulosis, and a benign colon polyp. She denies any rectal bleeding, melena, hematemesis, nausea, or vomiting. PAST MEDICAL HISTORY: Past medical history is notable for type 2 diabetes mellitus, hypertension, gastroesophageal reflux disease, sciatica, herniated lumbar and cervical disks, cervical radiculopathy, breast cyst. PAST SURGICAL HISTORY: Past surgical history is notable for cervical diskectomy, left breast cyst removal, and multiple laparoscopic gynecologic procedures for ovarian cyst and endometriosis. SOCIAL HISTORY: She denies alcohol use. She quit cigarette smoking several months ago. She smoked up to a half pack a day for many years. FAMILY HISTORY: Family history is notable for father with an AL in his mid 60s. REVIEW OF SYSTEMS: Fourteen-point review of systems is positive for syncope. Left lower quadrant abdominal pain, weight loss, and loss of appetite. PHYSICAL EXAMINATION: GENERAL: Well-developed female sitting in bed, in no acute distress. VITAL SIGNS: Reveal temperature of 98.1, blood pressure 118/65, heart rate of 67. HEENT: Reveal sclerae to be white. Conjunctivae pale. NECK: Supple. CHEST: Reveal lungs to be clear. HEART: Exam reveals a regular rate and rhythm. ABDOMEN: Soft. There is moderate left lower quadrant tenderness. There is no rebound. There is no guarding. EXTREMITIES: Show no edema. LABORATORY DATA: Reveal white blood cell count 15.4, hemoglobin of 8.8, platelet count of 663,000. Chemistries reveal blood sugar of 240. AST is 41, ALT 21, alkaline phosphatase of 94. CA-125 is 16.7. CA 19-9 is normal. IMPRESSION: This is a 67-year-old female admitted to the hospital with syncope, found to be anemic with an iron saturation of 10% with left lower quadrant abdominal pain, weight loss, thrombocytosis with a CT scan of the abdomen and pelvis showing a complex left lower quadrant mass measuring 7 cm, one must rule out a necrotic mass from malignancy versus an abscess. The patient did have a pelvic and transvaginal ultrasound as an outpatient last week. I would try and retrieve those results. RECOMMENDATIONS: 1. IR evaluation for possible CT-guided drainage versus aspiration. 2. Surgical evaluation for possible exploratory laparotomy. Derrell Mcbride MD
--- NOTE | 2018-04-16 17:34 | CARD ---
APPROVED REPORT Date of service: 04/16/2018 EXAM: Two-dimensional and M-mode echocardiogram with Doppler and color Doppler. INDICATION Syncope 2D DIMENSIONS Left Atrium (2D)4.0 (1.6-4.0cm)IVSd1.5 (0.7-1.1cm) LVDd4.6 (3.9-5.9cm)PWd1.0 (0.7-1.1cm) LVDs2.6 (2.5-4.0cm)FS (%) 42.6 % LVEF (%)73.9 (>50%) M-Mode DIMENSIONS Aortic Root2.30 (2.2-3.7cm)Aortic Cusp Exc.1.90 (1.5-2.0cm) Aortic Valve AoV Peak Pdpsvuge904.0cm/Eduardo Peak GR.15mmHg Mitral Valve MV E Wsngcnin23.8cm/sMV A Zmzjtqhe007.0cm/sE/A ratio0.8 TDI E/Lateral E'0.0E/Medial E'0.0 Tricuspid Valve TR Peak [id number]/sRAP [id number] Peak Gr.24mmHg [id number] LEFT VENTRICLE The left ventricle is normal size. There is mild to moderate concentric left ventricular hypertrophy. The left ventricular function is normal. The left ventricular ejection fraction is within the normal range. There is normal LV segmental wall motion. Transmitral Doppler flow pattern is Grade I-abnormal relaxation pattern. RIGHT VENTRICLE The right ventricle is normal size. There is normal right ventricular wall thickness. The right ventricular systolic function is normal. ATRIA The left atrium is borderline dilated. The right atrium size is normal. AORTIC VALVE The aortic valve is normal in structure. No aortic regurgitation is present. There is no aortic valvular stenosis. MITRAL VALVE The mitral valve is normal in structure. Mitral regurgitation is trace. There is no mitral valve stenosis. TRICUSPID VALVE There is mild tricuspid regurgitation. There is mild pulmonary hypertension. GREAT VESSELS The aortic root is normal in size. The IVC is normal in size and collapses >50% with inspiration. PERICARDIAL EFFUSION There is no pericardial effusion. <Conclusion> There is mild to moderate concentric left ventricular hypertrophy. The left ventricular function is normal. The left ventricular ejection fraction is within the normal range. There is normal LV segmental wall motion. Transmitral Doppler flow pattern is Grade I-abnormal relaxation pattern. There is mild tricuspid regurgitation. There is mild pulmonary hypertension.
--- NOTE | 2018-04-16 17:46 | US ---
Date of service: 04/16/2018 HISTORY: Pelvic mass COMPARISON: Comparison made with prior CT scan abdomen pelvis earlier same day.. TECHNIQUE: Transabdominal/transvaginal sonographic evaluation of pelvis performed. FINDINGS: UTERUS: Uterus is anteverted measuring approximate 8.0 x 4.4 x 5.9 cm cm. Normal in size and appearance. No fibroid or other mass lesion seen. ENDOMETRIUM: Measures 5.2 mm in diameter. Unremarkable. CERVIX: Small cervical nabothian cyst present.. RIGHT OVARY: Right ovary not visualized. LEFT OVARY: Left ovary not positively identified. FREE FLUID: No significant free fluid noted. OTHER FINDINGS: None. IMPRESSION: Small cervical nabothian cyst. Left ovary not seen. Right ovary also not positively identified
--- NOTE | 2018-04-16 18:02 | PN ---
DATE: 04/16/2018 SUBJECTIVE: The patient is feeling well. No shortness of breath. No dizziness. Blood pressure varies from 118/124 without orthostatic changes. PHYSICAL EXAMINATION: NECK: Negative JVD. HEART: Reveals S1, S2. LUNGS: Without rales. EXTREMITIES: Without edema. monitor worker shows no arrhythmias. LABORATORY DATA: Hemoglobin is 8.8. Chemistries, BUN and creatinine unremarkable. Glucose is 121. Echocardiogram shows good LV function with no LV outflow obstruction. IMPRESSION: 1. Syncope, which may be related to her antihypertensive medications. Her blood pressure off medications so far has been stable. 2. Diabetes mellitus. 3. History of hypertension. 4. Anemia. Given these findings, the patient's cardiac status is stable. There is no cardiac cause of her syncope. We will discontinue telemetry today. We will hold off on any antihypertensive medications. I have discussed the cardiac risk factors with the patient. We will arrange for an outpatient Lexiscan next week. The patient cannot walk on a treadmill. Jaylen Martin MD
[2018-04-16] MEDS ORDERED: Dextrose 5%/0.45% NS 1,000 ML IV SCH (20:45)
[2018-04-17] MEDS: Insulin Lispro (humaLOG) LOW Coverage SC SCH ×4 (01:23→14:30)
[2018-04-17] MEDS: Piperacillin/Tazobact 3.375 gm 100 ML IVPB SCH ×3 (05:00→21:51)
--- NOTE | 2018-04-17 05:46 | CP.PCM.PN ---
<Luis Alfredo Aburtoima - Last Filed: 04/17/18 14:53> Subjective - Date & Time of Evaluation Date of Evaluation: 04/17/18 Time of Evaluation: 08:15 - Subjective Subjective: Pgy3 Medicine note for Dr. Fields Patient seen and examined at bedside. Nursing reports no acute events overnight. Patient kept NPO and is on fluids. She reports her LLQ pain has slightly improved. She endorsed again that she has been experiencing chills and sweats overnight. Patient otherwise reports feeling well and denies any headache, dizziness, chest pain, palpitations, SOB, cough, nausea, vomiting, bowel/bladder complaints. Patient was spoken to in detail regarding the need for possible blood transfusion but refused at this time despite being aware of the benefits vs risks. Objective - Vital Signs/Intake and Output Vital Signs (last 24 hours): Temp Pulse Resp BP Pulse Ox 98 F 69 18 122/77 99 04/17/18 04:00 04/17/18 04:00 04/17/18 04:00 04/17/18 04:00 04/17/18 04:00 Intake and Output: 04/16/18 04/17/18 18:59 06:59 Intake Total 2340 Balance 2340 - Medications Medications: Current Medications Acetaminophen (Tylenol 325mg Tab) 650 mg PO Q6H PRN PRN Reason: Pain, Mild (1-3) Last Admin: 04/16/18 22:31 Dose: 650 mg Dextrose (Dextrose 50% Inj) 0 ml IV STAT PRN; Protocol PRN Reason: Hypoglycemia Protocol Duloxetine HCl (Cymbalta) 30 mg PO HS [facility] Last Admin: 04/16/18 22:14 Dose: 30 mg Famotidine (Pepcid) 20 mg PO 1000,2200 ELI Last Admin: 04/16/18 22:14 Dose: 20 mg Gabapentin (Neurontin) 300 mg PO DAILY [facility]; Protocol Last Admin: 04/16/18 10:24 Dose: Not Given Dextrose (Dextrose 5% In Water 1000 Ml) 1,000 mls @ 0 mls/hr IV .Q0M PRN; Protocol PRN Reason: Hypoglycemia Protocol Piperacillin Sod/Tazobactam Sod (Zosyn 3.375 In Ns 100ml) 100 mls @ 25 mls/hr IVPB Q8 ELI; Protocol Stop: 04/23/18 11:16 Last Admin: 04/17/18 05:00 Dose: 25 mls/hr Dextrose/Sodium Chloride (Dextrose 5%/0.45% Ns 1000 Ml) 1,000 mls @ 100 mls/hr IV .Q10H ELI Last Admin: 04/17/18 02:20 Dose: 100 mls/hr Insulin Human Lispro (Humalog Low) 0 units SC ACHS ELI; Protocol Last Admin: 04/17/18 01:23 Dose: Not Given Celecoxib [Celebrex] (200 Mg (Home Med)) 200 mg PO DAILY PRN PRN Reason: Pain, moderate (4-7) - Labs Labs: 04/16/18 06:00 04/16/18 06:00 PT 17.3 SECONDS (9.4-12.5) H 04/16/18 13:45 INR 1.49 04/16/18 13:45 APTT 25.8 Seconds (25.1-36.5) 04/16/18 13:45 - Constitutional Appears: Non-toxic, No Acute Distress - Head Exam Head Exam: ATRAUMATIC, NORMAL INSPECTION, NORMOCEPHALIC - Eye Exam Eye Exam: EOMI, Normal appearance. absent: Conjunctival injection, Scleral icterus - ENT Exam ENT Exam: Mucous Membranes Moist - Neck Exam Neck Exam: Full ROM - Respiratory Exam Respiratory Exam: Clear to Ausculation Bilateral, NORMAL BREATHING PATTERN. absent: Accessory Muscle Use, Rales, Rhonchi, Wheezes, Respiratory Distress - Cardiovascular Exam Cardiovascular Exam: RRR, +S1, +S2. absent: Murmur - GI/Abdominal Exam GI & Abdominal Exam: Soft, Tenderness (mild LLQ to palpation), Normal Bowel Sounds. absent: Firm, Guarding, Rigid - Rectal Exam Rectal Exam: Deferred - Extremities Exam Extremities Exam: Normal Capillary Refill, Normal Inspection. absent: Pedal Edema - Back Exam Back Exam: NORMAL INSPECTION. absent: rash noted - Neurological Exam Neurological Exam: Alert, Awake, CN II-XII Intact, Oriented x3 - Psychiatric Exam Psychiatric exam: Normal Affect, Normal Mood - Skin Skin Exam: Dry, Intact, Normal Color, Warm Assessment and Plan - Assessment and Plan (Free Text) Assessment: 1. LLQ abdominal mass vs abscess 2. Syncope- resolved 3. Iron deficient anemia 4. Thrombocytosis 5. Leukocytosis 6. HTN 7. DM2 8. Hypercholesterolemia 9. Cervical radiculopathy 10. Lumbar disc herniation and radiculopathy 11. LLE sciatica 12. GERD Plan: Patient clinically unchanged from prior day and continues to complain of chills and night sweats. Patient still NPO and reports LLQ abd pain has slightly improved. Patient for biopsy with IR Dr. Jaylen Vickers in AM. Will continue Zosyn at this time as per ID. Blood culture prelim negative x 2 and urine culture negative and CXR is unremarkable. Patient's H&H noted to be 7.8/26. Could be dilutional in light of having been of D5 1/2NS @ 100 since the prior night. Patient was ordered to be transfused 2U PRBC by heme/onc. Patient refused to consent to blood transfusion despite being educated in detail regarding the benefits vs risks. Since patient refused, IV Iron sucrose 200mg ordered. Will f/u H&H on AM labs. Patient was also noted to have Left sided hydronephrosis on CT Abd/pelvis. Thus urology Dr. Ugalde consulted- will f/u reccs. Patient's vaginal u/s done 04/16/18 shows small cervical nabothian cyst; L ovary not seen; R ovary not positively identified. Appreciate reccs from surgery, GI, heme/onc, IR, ID, urology, cardio, and neurology. Will continue to monitor patient closely. Patient spoken to in detail regarding hospital course and questions were answered and addressed thoroughly. Discussed with Dr. Donnie Aburto PGY3 <Lonny Fields S - Last Filed: 04/17/18 18:44> Objective - Vital Signs/Intake and Output Vital Signs (last 24 hours): Temp Pulse Resp BP Pulse Ox 98.7 F 64 18 133/84 74 L 04/17/18 16:33 04/17/18 16:33 04/17/18 16:33 04/17/18 16:35 04/17/18 16:35 Intake and Output: 04/17/18 04/17/18 06:59 18:59 Intake Total 2340 Balance 2340 - Medications Medications: Current Medications Acetaminophen (Tylenol 325mg Tab) 650 mg PO Q6H PRN PRN Reason: Pain, Mild (1-3) Last Admin: 04/16/18 22:31 Dose: 650 mg Dextrose (Dextrose 50% Inj) 0 ml IV STAT PRN; Protocol PRN Reason: Hypoglycemia Protocol Duloxetine HCl (Cymbalta) 30 mg PO HS [facility] Last Admin: 04/16/18 22:14 Dose: 30 mg Famotidine (Pepcid) 20 mg PO 1000,2200 ELI Last Admin: 04/17/18 10:07 Dose: 20 mg Gabapentin (Neurontin) 300 mg PO DAILY ELI; Protocol Last Admin: 04/17/18 10:11 Dose: Not Given Home Med (Home Med) 1 unit PO HS [facility] Dextrose (Dextrose 5% In Water 1000 Ml) 1,000 mls @ 0 mls/hr IV .Q0M PRN; Protocol PRN Reason: Hypoglycemia Protocol Piperacillin Sod/Tazobactam Sod (Zosyn 3.375 In Ns 100ml) 100 mls @ 25 mls/hr IVPB Q8 ELI; Protocol Stop: 04/23/18 11:16 Last Admin: 04/17/18 14:33 Dose: 25 mls/hr Iron Sucrose 200 mg/ Sodium (Chloride) 110 mls @ 110 mls/hr IVPB DAILY ELI Stop: 04/20/18 11:31 Last Admin: 04/17/18 13:12 Dose: 110 mls/hr Dextrose/Sodium Chloride (Dextrose 5%/0.45% Ns 1000 Ml) 1,000 mls @ 100 mls/hr IV .Q10H ELI Last Admin: 04/17/18 18:11 Dose: 100 mls/hr Insulin Human Lispro (Humalog Low) 0 units SC Q6H ELI; Protocol Last Admin: 04/17/18 14:30 Dose: Not Given Celecoxib [Celebrex] (200 Mg (Home Med)) 200 mg PO DAILY PRN PRN Reason: Pain, moderate (4-7) - Labs Labs: 04/17/18 07:00 04/17/18 07:00 PT 17.3 SECONDS (9.4-12.5) H 04/16/18 13:45 INR 1.49 04/16/18 13:45 APTT 25.8 Seconds (25.1-36.5) 04/16/18 13:45 Assessment and Plan - Assessment and Plan (Free Text) Plan: Pt seen and examined by me. I have reviewed the note of the chief medical physicist and I agree with it. I have discussed the assessment and plan with the resident. I have reviewed the medications and the last labs.Pt will need biopsy of her mass in the pelvis. She also has L hydroureter. Pt will get 2U PRBCs today by Heme/Onc but she refused. Pt is was given Iron. Vaginal US was reviewed.
[2018-04-17 07:30] LABS: BASO # 0.02 K/mm3 (0.0-2.0); BASO % 0.2 % (0.0-3.0); EOS # 0.5 (0.0-0.7); EOS % 3.9 % (1.5-5.0); GRAN # 7.09 (1.4-6.5); GRAN % 60.9 % (50.0-68.0); HEMOGLOBIN 7.8 g/dL (12.0-16.0); LYMPH # 3.1 (1.2-3.4); LYMPH % 26.6 % (22.0-35.0); MEAN CELL VOLUME 84.1 fl (80.0-105.0); MEAN CORPUSCULAR HEMOGLOBIN 25.2 pg (25.0-35.0); MEAN PLATELET VOLUME 8.3 fl (7.0-11.0); MONO % 8.4 % (1.0-6.0); RBC 3.09 10^6/uL (3.5-6.1); RED CELL DISTRIBUTION WIDTH 15.6 % (11.5-14.5); WHITE BLOOD COUNT 11.6 10^3/uL (4.5-11.0)
[2018-04-17 08:00] LABS: ALB/GLOB RATIO 0.8 (1.1-1.8); ALBUMIN 2.9 g/dL (3.0-4.8); ALT/SGPT 23 U/L (7-56); AST/SGOT 20 U/L (14-36); BLOOD UREA NITROGEN 11 mg/dL (7-21); GFR NON-AFRICAN AMERICAN > 60
--- NOTE | 2018-04-17 08:36 | CP.PCM.PN ---
<Chriss Parrish - Last Filed: 04/17/18 13:09> Subjective - Date & Time of Evaluation Date of Evaluation: 04/17/18 Time of Evaluation: 07:40 - Subjective Subjective: Infectious disease progress note: Pt seen and examined at bedside. No acute events overnight. Patient still complains of some night sweats otherwise states she is doing well. 12 Point ROS performed and neg other than stated above. Objective - Vital Signs/Intake and Output Vital Signs (last 24 hours): Temp Pulse Resp BP Pulse Ox 97.3 F L 53 L 20 106/70 97 04/17/18 06:00 04/17/18 06:00 04/17/18 06:00 04/17/18 06:00 04/17/18 06:00 Intake and Output: 04/17/18 04/17/18 06:59 18:59 Intake Total 2340 Balance 2340 - Medications Medications: Current Medications Acetaminophen (Tylenol 325mg Tab) 650 mg PO Q6H PRN PRN Reason: Pain, Mild (1-3) Last Admin: 04/16/18 22:31 Dose: 650 mg Dextrose (Dextrose 50% Inj) 0 ml IV STAT PRN; Protocol PRN Reason: Hypoglycemia Protocol Duloxetine HCl (Cymbalta) 30 mg PO HS ELI Last Admin: 04/16/18 22:14 Dose: 30 mg Famotidine (Pepcid) 20 mg PO 1000,2200 ELI Last Admin: 04/16/18 22:14 Dose: 20 mg Gabapentin (Neurontin) 300 mg PO DAILY ELI; Protocol Last Admin: 04/16/18 10:24 Dose: Not Given Dextrose (Dextrose 5% In Water 1000 Ml) 1,000 mls @ 0 mls/hr IV .Q0M PRN; Protocol PRN Reason: Hypoglycemia Protocol Piperacillin Sod/Tazobactam Sod (Zosyn 3.375 In Ns 100ml) 100 mls @ 25 mls/hr IVPB Q8 ELI; Protocol Stop: 04/23/18 11:16 Last Admin: 04/17/18 05:00 Dose: 25 mls/hr Dextrose/Sodium Chloride (Dextrose 5%/0.45% Ns 1000 Ml) 1,000 mls @ 100 mls/hr IV .Q10H ELI Last Admin: 04/17/18 02:20 Dose: 100 mls/hr Insulin Human Lispro (Humalog Low) 0 units SC Q6H ELI; Protocol Celecoxib [Celebrex] (200 Mg (Home Med)) 200 mg PO DAILY PRN PRN Reason: Pain, moderate (4-7) - Labs Labs: 04/17/18 07:00 04/17/18 07:00 PT 17.3 SECONDS (9.4-12.5) H 04/16/18 13:45 INR 1.49 04/16/18 13:45 APTT 25.8 Seconds (25.1-36.5) 04/16/18 13:45 - Constitutional Appears: No Acute Distress - Head Exam Head Exam: ATRAUMATIC, NORMOCEPHALIC - Eye Exam Eye Exam: EOMI - ENT Exam ENT Exam: Mucous Membranes Moist - Respiratory Exam Respiratory Exam: Clear to Ausculation Bilateral (no r/r/w) - Cardiovascular Exam Cardiovascular Exam: RRR, +S1, +S2 - GI/Abdominal Exam GI & Abdominal Exam: Soft, Normal Bowel Sounds - Extremities Exam Extremities Exam: Full ROM, Normal Capillary Refill. absent: Calf Tenderness, Joint Swelling, Pedal Edema, Tenderness - Neurological Exam Neurological Exam: Alert, Awake, CN II-XII Intact, Normal Gait, Oriented x3 - Psychiatric Exam Psychiatric exam: Normal Affect, Normal Mood - Skin Skin Exam: Dry, Intact, Normal Color, Warm Assessment and Plan - Assessment and Plan (Free Text) Assessment: 67yo female PMHx HTN, GERD, DM2, lumbar disc herniation and LLE sciatica pres ents with an episode of syncope. Found to have leukocytosis. CTAP shows LLQ necrotic mass vs abcess. - Leukocutosis trending down this am wbc of 15--> 11.6 - Heme/onc consulted for anemia and oncological work up - IR and surgery consulted for evaluation of necrotic mass - Continue abx with Zosyn - F/u septic work up - Blood cultures neg thus far - CXR and UA neg - Cont to monitor for any changes Case and plan was reviewed and discussed with Dr Davidson. <Servando Davidson - Last Filed: 04/17/18 21:05> Objective - Vital Signs/Intake and Output Vital Signs (last 24 hours): Temp Pulse Resp BP Pulse Ox 98.7 F 64 18 133/84 74 L 04/17/18 16:33 04/17/18 16:33 04/17/18 16:33 04/17/18 16:35 04/17/18 16:35 Intake and Output: 04/17/18 04/18/18 18:59 06:59 Intake Total 0 Balance 0 - Medications Medications: Current Medications Acetaminophen (Tylenol 325mg Tab) 650 mg PO Q6H PRN PRN Reason: Pain, Mild (1-3) Last Admin: 04/17/18 20:42 Dose: 650 mg Dextrose (Dextrose 50% Inj) 0 ml IV STAT PRN; Protocol PRN Reason: Hypoglycemia Protocol Duloxetine HCl (Cymbalta) 30 mg PO HS ELI Last Admin: 04/16/18 22:14 Dose: 30 mg Famotidine (Pepcid) 20 mg PO 1000,2200 ELI Last Admin: 04/17/18 10:07 Dose: 20 mg Gabapentin (Neurontin) 300 mg PO DAILY ELI; Protocol Last Admin: 04/17/18 10:11 Dose: Not Given Home Med (Home Med) 1 unit PO HS ELI Dextrose (Dextrose 5% In Water 1000 Ml) 1,000 mls @ 0 mls/hr IV .Q0M PRN; Protocol PRN Reason: Hypoglycemia Protocol Piperacillin Sod/Tazobactam Sod (Zosyn 3.375 In Ns 100ml) 100 mls @ 25 mls/hr IVPB Q8 ELI; Protocol Stop: 04/23/18 11:16 Last Admin: 04/17/18 14:33 Dose: 25 mls/hr Iron Sucrose 200 mg/ Sodium (Chloride) 110 mls @ 110 mls/hr IVPB DAILY ELI Stop: 04/20/18 11:31 Last Admin: 04/17/18 13:12 Dose: 110 mls/hr Dextrose/Sodium Chloride (Dextrose 5%/0.45% Ns 1000 Ml) 1,000 mls @ 100 mls/hr IV .Q10H ELI Last Admin: 04/17/18 18:11 Dose: 100 mls/hr Insulin Human Lispro (Humalog Low) 0 units SC 0000,0600,1200,1800 ELI; Protocol Celecoxib [Celebrex] (200 Mg (Home Med)) 200 mg PO DAILY PRN PRN Reason: Pain, moderate (4-7) - Labs Labs: 04/17/18 07:00 04/17/18 07:00 PT 17.3 SECONDS (9.4-12.5) H 04/16/18 13:45 INR 1.49 04/16/18 13:45 APTT 25.8 Seconds (25.1-36.5) 04/16/18 13:45 Assessment and Plan - Assessment and Plan (Free Text) Assessment: Infectious diseases Attending Physician Attestation Patient seen and examined, discussed with emergency medical service coordinator. I have reviewed the patient's history of present illness, past medical, social, personal and family histories, pertinent physical exam findings, course so far in this hospital admission, pertinent laboratory and imaging results. I agree with the above findings, assessment and plan. In addition, continue Zosyn for left lower quadrant mass, necrotic or abscess. Follow up IR-guided biopsy and results. Continue to trend WBC count. Discussed with Dr. Wilde.
--- NOTE | 2018-04-17 11:07 | CP.PCM.PN ---
Subjective - Date & Time of Evaluation Date of Evaluation: 04/17/18 Time of Evaluation: 10:15 - Subjective Subjective: Surgery progress note- Dr. Ayala Patient seen and examined at bedside. She reports night sweats with no other complaints. Tolerating her liquid diet, having regular BM. She denied abd pain, N/V/D. Objective - Vital Signs/Intake and Output Vital Signs (last 24 hours): Temp Pulse Resp BP Pulse Ox 97.3 F L 53 L 20 106/70 97 04/17/18 06:00 04/17/18 06:00 04/17/18 06:00 04/17/18 06:00 04/17/18 06:00 Intake and Output: 04/17/18 04/17/18 06:59 18:59 Intake Total 2340 Balance 2340 - Medications Medications: Current Medications Acetaminophen (Tylenol 325mg Tab) 650 mg PO Q6H PRN PRN Reason: Pain, Mild (1-3) Last Admin: 04/16/18 22:31 Dose: 650 mg Dextrose (Dextrose 50% Inj) 0 ml IV STAT PRN; Protocol PRN Reason: Hypoglycemia Protocol Duloxetine HCl (Cymbalta) 30 mg PO HS ELI Last Admin: 04/16/18 22:14 Dose: 30 mg Famotidine (Pepcid) 20 mg PO 1000,2200 ELI Last Admin: 04/17/18 10:07 Dose: 20 mg Gabapentin (Neurontin) 300 mg PO DAILY ELI; Protocol Last Admin: 04/17/18 10:11 Dose: Not Given Home Med (Home Med) 1 unit PO HS ELI Dextrose (Dextrose 5% In Water 1000 Ml) 1,000 mls @ 0 mls/hr IV .Q0M PRN; Protocol PRN Reason: Hypoglycemia Protocol Piperacillin Sod/Tazobactam Sod (Zosyn 3.375 In Ns 100ml) 100 mls @ 25 mls/hr IVPB Q8 ELI; Protocol Stop: 04/23/18 11:16 Last Admin: 04/17/18 05:00 Dose: 25 mls/hr Insulin Human Lispro (Humalog Low) 0 units SC Q6H ELI; Protocol Last Admin: 04/17/18 08:54 Dose: Not Given Celecoxib [Celebrex] (200 Mg (Home Med)) 200 mg PO DAILY PRN PRN Reason: Pain, moderate (4-7) - Labs Labs: 04/17/18 07:00 04/17/18 07:00 PT 17.3 SECONDS (9.4-12.5) H 04/16/18 13:45 INR 1.49 04/16/18 13:45 APTT 25.8 Seconds (25.1-36.5) 04/16/18 13:45 - Constitutional Appears: Well, No Acute Distress - Eye Exam Eye Exam: EOMI, PERRL - Respiratory Exam Respiratory Exam: Clear to Ausculation Bilateral, NORMAL BREATHING PATTERN - Cardiovascular Exam Cardiovascular Exam: REGULAR RHYTHM, +S1, +S2. absent: Murmur - GI/Abdominal Exam GI & Abdominal Exam: Soft, Normal Bowel Sounds. absent: Rigid, Tenderness, Mass, Organomegaly, Rebound - Extremities Exam Extremities Exam: Full ROM, Normal Capillary Refill, Normal Inspection. absent: Joint Swelling, Pedal Edema - Neurological Exam Neurological Exam: Alert, Awake, Oriented x3 - Psychiatric Exam Psychiatric exam: Normal Affect, Normal Mood - Skin Skin Exam: Dry, Intact, Normal Color, Warm Assessment and Plan - Assessment and Plan (Free Text) Assessment: 67 y/o female admitted for syncope episode. Found to have 7cm LLQ complex mass on CT A/P Plan: -WBC trending down. Patient is hemodynamically stable, afebrile but still have night sweats -vaginal US 04/16/17: unremarkable, ovaries not identified -continue abx/IVF -IR consulted for possible drainage -will continue to follow -no acute surgical intervention at this time -further recs as per surgical attending Dr. Jamie Rothman, DO
--- NOTE | 2018-04-17 11:20 | CP.PCM.APN ---
Subjective - Date & Time of Evaluation Date of Evaluation: 04/17/18 - Subjective Subjective: Pt. seen and examined at bedside. Still complains of moderate LLq pain, upon palpation, made NPO, for diverticulitis, denied nausea, denied vomiting. States had very dark BM prior to admission, denied any diarrhea, loose BM, denied dizziness, lightheadedness. Review of Systems - Constitutional Constitutional: Night Sweats - EENT Eyes: absent: As Per HPI, Blind Spots, Blurred Vision, Change in Vision, Decreased Night Vision, Diplopia, Discharge, Dry Eye, Exophthalmos, Floaters, Irritation, Itchy Eyes, Loss of Peripheral Vision, Pain, Photophobia, Requires Corrective Lenses, Sees Flashes, Spots in Vision, Tunnel Vision, Other Visual Disturbances, Loss of Vision, Other Ears: absent: As Per HPI, Decreased Hearing, Ear Discharge, Ear Pain, Tinnitus, Abnormal Hearing, Disequilibrium, Dizziness, Other Nose/Mouth/Throat: absent: As Per HPI, Epistaxis, Nasal Congestion, Nasal Discharge, Nasal Obstruction, Nasal Trauma, Nose Pain, Post Nasal Drip, Sinus Pain, Sinus Pressure, Bleeding Gums, Change in Voice, Dental Pain, Dry Mouth, Dysphagia, Halitosis, Hoarsness, Lip Swelling, Mouth Lesions, Mouth Pain, Odynophagia, Sore Throat, Throat Swelling, Tongue Swelling, Facial Pain, Neck Pain, Neck Mass, Other - Breasts Breasts: absent: As Per HPI, Change in Shape, Mass, Pain, Nipple Discharge, Nipple Inversion, Skin Changes, Swelling, Other - Cardiovascular Cardiovascular: absent: As Per HPI, Acrocyanosis, Chest Pain, Chest Pain at Rest, Chest Pain with Activity, Claudication, Diaphoresis, Dyspnea, Dyspnea on Exertion, Edema, Irregular Heart Rhythm, Pain Radiating to Arm/Neck/Jaw, Leg Edema, Leg Ulcers, Lightheadedness, Orthopnea, Palpitations, Paroxysmal Nocturnal Dyspnea, Pedal Edema, Radiating Pain, Rapid Heart Rate, Slow Heart Rate, Syncope, Other - Respiratory Respiratory: absent: As Per HPI, Cough, Dyspnea, Hemoptysis, Dyspnea on Exertion, Wheezing, Snoring, Stridor, Pain on Inspiration, Chest Congestion, Excessive Mucous Production, Change in Mucous Color, Pain with Coughing, Other - Gastrointestinal Gastrointestinal: Abdominal Pain - Genitourinary Genitourinary: absent: As Per HPI, Change in Urinary Stream, Difficulty Urinating, Dysuria, Flank Pain, Hematuria, Pyuria, Nocturia, Urinary Incontinence, Urinary Frequency, Urinary Hesitance, Urinary Urgency, Voiding Freq/Small Amts, Freq UTI, Hx Renal/Bladder Calculi, Hx /Renal Surgery, Bladder Distension, Other - Musculoskeletal Musculoskeletal: absent: As Per HPI, Abnormal Gait, Arthralgias, Atrophy, Back Pain, Deformity, Joint Swelling, Limited Range of Motion, Loss of Height, Muscle Cramps, Muscle Weakness, Myalgias, Neck Pain, Numbness, Radiating Pain into Limb, Stiffness, Tingling, Other - Integumentary Integumentary: absent: As Per HPI, Acne, Alopecia, Bleeding Lesions, Change in Hair, Change in Nails, Change in Pigmentation, Changing Lesions, Dry Skin, Erythema, Furuncle, Hirsutism, Lesions, New Lesions, Non-Healing Lesions, Photosensitivity, Pruritus, Rash, Skin Pain, Skin Ulcer, Sores, Striae, Swelling, Unusual Bruising, Wounds, Jaundice, Other - Neurological Neurological: absent: As Per HPI, Abnormal Gait, Abnormal Hearing, Abnormal Movements, Abnormal Speech, Behavioral Changes, Burning Sensations, Confusion, Convulsions, Disequilibrium, Dizziness, Numbness, Focal Weakness, Frequent Falls, Headaches, Lack of Coordination, Loss of Vision, Memory Loss, Paresthesias, Radicular Pain, Restless Legs, Sensory Deficit, Syncope, Tingling, Tremor, Vertigo, Weakness, Other Visual Disturbances, Other - Endocrine Endocrine: Excessive Sweating, Fatigue Objective - Vital Signs/Intake and Output Vital Signs (last 24 hours): Temp Pulse Resp BP Pulse Ox 97.3 F L 53 L 20 106/70 97 04/17/18 06:00 04/17/18 06:00 04/17/18 06:00 04/17/18 06:00 04/17/18 06:00 Intake and Output: 04/17/18 04/17/18 06:59 18:59 Intake Total 2340 Balance 2340 - Medications Medications: Current Medications Acetaminophen (Tylenol 325mg Tab) 650 mg PO Q6H PRN PRN Reason: Pain, Mild (1-3) Last Admin: 04/16/18 22:31 Dose: 650 mg Acetaminophen (Tylenol 325mg Tab) 650 mg PO ONCE ONE Stop: 04/17/18 12:01 Dextrose (Dextrose 50% Inj) 0 ml IV STAT PRN; Protocol PRN Reason: Hypoglycemia Protocol Duloxetine HCl (Cymbalta) 30 mg PO HS [facility] Last Admin: 04/16/18 22:14 Dose: 30 mg Famotidine (Pepcid) 20 mg PO 1000,2200 [facility] Last Admin: 04/17/18 10:07 Dose: 20 mg Gabapentin (Neurontin) 300 mg PO DAILY [facility]; Protocol Last Admin: 04/17/18 10:11 Dose: Not Given Home Med (Home Med) 1 unit PO HS [facility] Dextrose (Dextrose 5% In Water 1000 Ml) 1,000 mls @ 0 mls/hr IV .Q0M PRN; Protocol PRN Reason: Hypoglycemia Protocol Piperacillin Sod/Tazobactam Sod (Zosyn 3.375 In Ns 100ml) 100 mls @ 25 mls/hr IVPB Q8 [facility]; Protocol Stop: 04/23/18 11:16 Last Admin: 04/17/18 05:00 Dose: 25 mls/hr Iron Sucrose 200 mg/ Sodium (Chloride) 110 mls @ 110 mls/hr IVPB DAILY [facility] Stop: 04/20/18 11:31 Insulin Human Lispro (Humalog Low) 0 units SC Q6H [facility]; Protocol Last Admin: 04/17/18 08:54 Dose: Not Given Celecoxib [Celebrex] (200 Mg (Home Med)) 200 mg PO DAILY PRN PRN Reason: Pain, moderate (4-7) - Labs Labs: 04/17/18 07:00 04/17/18 07:00 PT 17.3 SECONDS (9.4-12.5) H 04/16/18 13:45 INR 1.49 04/16/18 13:45 APTT 25.8 Seconds (25.1-36.5) 04/16/18 13:45 - Constitutional Appears: Well, Non-toxic - Head Exam Head Exam: NORMOCEPHALIC - Eye Exam Eye Exam: Normal appearance Pupil Exam: NORMAL ACCOMODATION - ENT Exam ENT Exam: Mucous Membranes Moist, Normal Exam - Neck Exam Neck Exam: Full ROM - Respiratory Exam Respiratory Exam: Clear to Ausculation Bilateral, NORMAL BREATHING PATTERN - Cardiovascular Exam Cardiovascular Exam: REGULAR RHYTHM, +S1, +S2 - GI/Abdominal Exam GI & Abdominal Exam: Soft, Normal Bowel Sounds - Rectal Exam Rectal Exam: Deferred - Exam Exam: absent: Circumcision, NORMAL INSPECTION, Scrotal Swelling, Testicular Tenderness, Uretheral Discharge, Testicular Vertical Lie, Bladder Distension External exam: absent: Ecchymosis, Erythema, Lacerations, Lesions, NORMAL EXTERNAL EXAM, Swelling Speculum exam: absent: Cervical Discharge, Erythema, Foreign Body, Laceration, NORMAL SPECULUM EXAM, Tissue, Vaginal Bleeding, Vaginal Discharge - Extremities Exam Extremities Exam: Full ROM, Normal Inspection - Back Exam Back Exam: NORMAL INSPECTION - Neurological Exam Neurological Exam: Alert, Awake, Oriented x3 - Skin Skin Exam: Dry, Intact, Normal Color, Warm Assessment and Plan - Assessment and Plan (Free Text) Assessment: Impressions Transvaginal US 04/16/18 13:06 IMPRESSION: Small cervical nabothian cyst. Left ovary not seen. Right ovary also not positively identified Impressions Chest X-Ray 04/14/18 17:18 IMPRESSION: No active disease. Head CT 04/14/18 17:18 IMPRESSION: No acute intracranial findings Carotid Artery Ultrasound 04/15/18 15:04 IMPRESSION: 1. Bilateral 20-39% proximal ICA stenoses. 2. Antegrade flow in both vertebral arteries. Abdomen/Pelvis CT 04/16/18 05:19 IMPRESSION: There is a complex mass in the left lower quadrant measuring approximately 7 cm in diameter. This has spiculated borders. There are pockets of fluid and air within this mass. There is loss of the fat planes around the left iliopsoas muscle and the left pelvic sidewall. Findings are most consistent with a necrotic mass. An abscess is also possible. There is mural thickening in the adjacent sigmoid colon but no obvious diverticular disease. Transvaginal US 04/16/18 13:06 IMPRESSION: Small cervical nabothian cyst. Left ovary not seen. Right ovary also not positively identified Laboratory Results WBC 11.6 10^3/uL (4.5-11.0) H D 04/17/18 07:00 RBC 3.09 10^6/uL (3.5-6.1) L 04/17/18 07:00 Hgb 7.8 g/dL (12.0-16.0) L 04/17/18 07:00 Hct 26.0 % (36.0-48.0) L 04/17/18 07:00 MCV 84.1 fl (80.0-105.0) 04/17/18 07:00 MCH 25.2 pg (25.0-35.0) 04/17/18 07:00 MCHC 30.0 g/dl (31.0-37.0) L 04/17/18 07:00 RDW 15.6 % (11.5-14.5) H 04/17/18 07:00 Plt Count 584 10^3/uL (120.0-450.0) H 04/17/18 07:00 MPV 8.3 fl (7.0-11.0) 04/17/18 07:00 Gran % 60.9 % (50.0-68.0) 04/17/18 07:00 Lymph % (Auto) 26.6 % (22.0-35.0) 04/17/18 07:00 [place] % (Auto) 8.4 % (1.0-6.0) H 04/17/18 07:00 Eos % (Auto) 3.9 % (1.5-5.0) 04/17/18 07:00 Baso % (Auto) 0.2 % (0.0-3.0) 04/17/18 07:00 Gran # 7.09 (1.4-6.5) H 04/17/18 07:00 Lymph # (Auto) 3.1 (1.2-3.4) 04/17/18 07:00 [place] # (Auto) 1.0 (0.1-0.6) H 04/17/18 07:00 Eos # (Auto) 0.5 (0.0-0.7) 04/17/18 07:00 Baso # (Auto) 0.02 K/mm3 (0.0-2.0) 04/17/18 07:00 Retic Count 2.51 % (0.5-1.5) H 04/16/18 06:00 PT 17.3 SECONDS (9.4-12.5) H 04/16/18 13:45 INR 1.49 04/16/18 13:45 APTT 25.8 Seconds (25.1-36.5) 04/16/18 13:45 Sodium 140 mmol/L (132-148) 04/17/18 07:00 Potassium 3.7 mmol/L (3.6-5.0) 04/17/18 07:00 Chloride 106 mmol/L (98-107) 04/17/18 07:00 Carbon Dioxide 28 mmol/L (21-33) 04/17/18 07:00 Anion Gap 10 (10-20) 04/17/18 07:00 BUN 11 mg/dL (7-21) 04/17/18 07:00 Creatinine 0.9 mg/dl (0.7-1.2) 04/17/18 07:00 Est GFR ( Amer) > 60 04/17/18 07:00 Est GFR (Non-Af Amer) > 60 04/17/18 07:00 POC Glucose (mg/dL) 102 mg/dL (65-110) 04/17/18 14:14 Random Glucose 129 mg/dL (70-110) H 04/17/18 07:00 Hemoglobin A1c 7.2 % (4.2-6.5) H 04/15/18 11:00 Calcium 9.0 mg/dL (8.4-10.5) 04/17/18 07:00 Phosphorus 4.5 mg/dL (2.5-4.5) 04/17/18 07:00 Magnesium 2.4 mg/dL (1.7-2.2) H 04/17/18 07:00 Iron 20 ug/dL (45-180) L 04/16/18 06:00 TIBC 199 ug/dL (265-497) L 04/16/18 06:00 % Saturation 10 % (20-55) L 04/16/18 06:00 Transferrin 140.90 mg/dL (206-381) L 04/16/18 06:30 Ferritin 798.0 ng/mL 04/16/18 06:00 Total Bilirubin 0.4 mg/dL (0.2-1.3) 04/17/18 07:00 AST 20 U/L (14-36) 04/17/18 07:00 ALT 23 U/L (7-56) 04/17/18 07:00 Alkaline Phosphatase 76 U/L (38-126) 04/17/18 07:00 Lactate Dehydrogenase 561 U/L (333-699) 04/14/18 17:35 Total Creatine Kinase 26 U/L (35-230) L 04/14/18 17:35 Troponin I < 0.01 ng/mL 04/14/18 17:35 NT-Pro-B Natriuret Pep 238 pg/mL (0-450) 04/14/18 17:35 Total Protein 6.7 g/dL (5.8-8.3) 04/17/18 07:00 Albumin 2.9 g/dL (3.0-4.8) L 04/17/18 07:00 Globulin 3.7 gm/dL 04/17/18 07:00 Albumin/Globulin Ratio 0.8 (1.1-1.8) L 04/17/18 07:00 Triglycerides 89 mg/dL (35-160) 04/16/18 06:00 Cholesterol 104 mg/dL (130-200) L 04/16/18 06:00 LDL Cholesterol Direct 53 mg/dL (0-129) 04/16/18 06:00 HDL Cholesterol 22 mg/dL (29-60) L 04/16/18 06:00 Carcinoembryonic Ag 2.1 ng/mL (0.0-3.0) 04/16/18 06:00 CA 19-9 Antigen 2.6 U/mL (0-37) 04/16/18 06:00 CA 125 Antigen 16.7 U/mL (0-35) 04/16/18 06:00 Total T3 0.95 ng/mL (0.97-1.69) L 04/14/18 17:35 TSH 3rd Generation 1.94 mIU/mL (0.46-4.68) 04/14/18 17:35 Urine Color Yellow (YELLOW) 04/14/18 18:16 Urine Appearance Clear (CLEAR) 04/14/18 18:16 Urine pH 6.0 (4.7-8.0) 04/14/18 18:16 Ur Specific [place] 1.020 (1.005-1.035) 04/14/18 18:16 Urine Protein Negative mg/dL (<30 mg/dL) 04/14/18 18:16 Urine Glucose (UA) Negative mg/dL (NEGATIVE) 04/14/18 18:16 Urine Ketones Negative mg/dL (NEGATIVE) 04/14/18 18:16 Urine Blood Negative (NEGATIVE) 04/14/18 18:16 Urine Nitrate Negative (NEGATIVE) 04/14/18 18:16 Urine Bilirubin Negative (NEGATIVE) 04/14/18 18:16 Urine Urobilinogen 0.2 E.U./dL (<1 E.U./dL) 04/14/18 18:16 Ur Leukocyte Esterase Negative Emma/uL (NEGATIVE) 04/14/18 18:16 WB Flow Cytometry Reference test 04/16/18 08:25 Blood Type O POSITIVE 04/17/18 11:20 Blood Type Confirm O POSITIVE 04/17/18 11:50 Antibody Screen Negative 04/17/18 11:20 Crossmatch See Detail 04/17/18 11:20 BBK History Checked No verified bt 04/17/18 11:20 Assessment/ Plan: 67 year old female admitted s/p syncopal episode, with decrease appetite along with 12 pounds weight loss in the past 4 weeks, found to be anemic, with complaints of left lower quad pain, with CT revealed necrotic mass in LLQ, measuring 7 cm. Plan: 1. Syncope Most likely r/t orthostasis, currently on IVF, monitor BP, cardiology recommending echo, pending. - Neuro recommends carotid us, pending 2. Leukocytosis -iMproved, blood culture results pending. 3. LLq Mass - For biopsy by ROMMEL moulton. 4. LLq pain likely secondary to diverticulitis - cont IV zosyn, followed by GI, keep NPO , maintain IVF until diet resumed. 5. Anemia, likely secondary to Iron deficient anemia, Currently receiving IV Iron , monitor cbc, patient currently refusing transfusion PRBCS, Monitor Cbc, trend WBC. Will continue to monitor clinical status and follow closely.
--- NOTE | 2018-04-17 13:46 | PN ---
DATE: 04/17/2018 SUBJECTIVE: The patient is lying in bed comfortable. She still admits to some left lower quadrant abdominal pain. She denies any nausea or vomiting. OBJECTIVE: VITAL SIGNS: Reveal temperature of 97.3, blood pressure 106/70, heart rate of 53. HEENT: Reveal sclerae to be white. Conjunctivae pink. NECK: Supple. CHEST: Reveal lungs to be clear. HEART: Reveals regular rate and rhythm. ABDOMEN: Soft. Moderate left lower quadrant tenderness. No rebound. No guarding. EXTREMITIES: Show no edema. LABORATORY DATA: Reveal white blood cell count 11.6, hemoglobin 7.8. Chemistries reveal blood sugar 129. AST, ALT, alk phos were all normal. IMPRESSION: A 67-year-old female with several weeks of left lower quadrant abdominal pain with a CT scan showing a complex mass in the left lower quadrant. CT shows the mass to have the appearance of a necrotic lesion. The patient is also anemic. There is no evidence of active GI bleeding at this time. RECOMMENDATIONS: 1. The patient will need an exploratory laparotomy. 2. The patient is to receive 2 units of packed red blood cells. Derrell Mcbride MD
[2018-04-17] MEDS: Dextrose 5%/0.45% NS 1,000 ML IV SCH (18:11)
--- NOTE | 2018-04-17 18:59 | PN ---
DATE: 04/17/2018 CARDIOLOGY FOLLOWUP SUBJECTIVE: The patient is comfortable in bed, currently n.p.o. PHYSICAL EXAMINATION: VITAL SIGNS: Blood pressure shows no orthostatic changes, heart rates in the 60s. NECK: Negative JVD. LUNGS: Without rales. HEART: S1, S2. EXTREMITIES: Without edema. LABORATORY DATA: Hemoglobin is 7.8. Chemistries, BUN and creatinine are unremarkable with a glucose of 129. IMPRESSION: 1. Status post syncope. 2. Anemia. 3. Left lower quadrant mass. 4. Diabetes mellitus. 5. Hypertension. PLAN: Given these findings, the patient's syncope cannot be explained by any cardiac condition. The patient is awaiting for percutaneous drainage of the left lower quadrant mass. Jaylen Martin MD
--- NOTE | 2018-04-17 20:37 | CON ---
DATE: 04/16/2018 GENITOURINARY CONSULTATION CHIEF COMPLAINT: Syncopal episode at home. HISTORY OF PRESENT ILLNESS: This is a 67-year-old female, who was seen in [facility] where she was admitted for workup of the syncopal episode. During her admission, the patient was having abdominal pain. She had a CT scan done, which was showing a mild left hydronephrosis with a mass in the left lower quadrant and a consultation was then requested. The patient has been seen previously in my office. She has a long history of microhematuria with workup negative for malignancy in the past. The patient was suppose to follow up approximately 6 months ago; however, she canceled the appointment and has not been seen since. PAST MEDICAL HISTORY: Significant for hypertension, reflux, diabetes, herniated disks, sciatica. MEDICATIONS: Medications include Celebrex, Cymbalta, insulin coverage, Neurontin, Pepcid, Tylenol, Zosyn. Was on metformin at home as well as losartan and hydrochlorothiazide, tizanidine, Neurontin, Celebrex, Cymbalta, and pravastatin. ALLERGIES: NO KNOWN DRUG ALLERGIES. FAMILY HISTORY: Noncontributory for this admission. SOCIAL HISTORY: Positive for smoking history, quit recently. Denies EtOH use. REVIEW OF SYSTEMS: On review of systems, 12-point review of systems was obtained. Positive for the syncopal episode; however, currently no dizziness, no lightheadedness, no palpitations. CARDIAC: No palpitations. No chest pains. RESPIRATORY: No cough, no shortness of breath. GI: Does have left lower quadrant abdominal pain. Denies any nausea or vomiting. : Does have mild urinary frequency, history of microhematuria. No gross hematuria. No flank pain. CONSTITUTIONAL: No fever or chills. Other systems are negative. PHYSICAL EXAMINATION: GENERAL: The patient is awake and alert. She is in no acute distress. VITAL SIGNS: She is afebrile. Temperature of 97.3, pulse of 60, BP 106/70, respirations 20. NECK: Her neck is supple. There is no adenopathy. CHEST: Exam of the chest reveals a normal inspiratory effort. CARDIAC: Exam shows positive S1, S2. There is trace peripheral edema noted. ABDOMEN: On abdominal exam, the abdomen is soft. There is some mild left lower quadrant tenderness. There is no rebound. There is no guarding. There is no CVA tenderness. EXTREMITIES: There is trace edema. There is no cyanosis noted. LABORATORY DATA: On laboratory exam, WBC count has come down to 11.6 from 21.6. GFR is greater than 60. RADIOLOGIC DATA: On radiologic exam, the patient had a CT scan of the abdomen and pelvis, which showed in kidneys, there is an obstruction or compression of the distal left ureter at the level of the left lower quadrant mass with mild hydronephrosis. There is a complex mass in the left lower quadrant measuring approximately 7 cm. There are pockets of fluid and air within this mass. There is loss of the fat planes around the left iliopsoas muscle on the left pelvic sidewall consistent with a necrotic mass, abscess is also possible. There is mural thickening of the adjacent sigmoid colon, but no obvious diverticular disease. IMPRESSION AND PLAN: This is a 67-year-old female with a left lower quadrant complex mass. The source of the mass is unknown at this point, but it appears that this mass is the cause of the hydronephrosis. The patient is scheduled for a biopsy of the mass and I agree with that plan. The patient's GFR is normal and her hydronephrosis will likely resolve with resolution of the mass. Given her elevated WBC count, which has been coming down on antibiotics. The mass is possibly a old abscess; however, there did not appear to be evidence of diverticulosis or diverticulitis on the CT scan. If patient is going for a surgical removal of the mass, I would recommend cystoscopy with insertion of ureteral catheters at least on the left side as the ureter appears to be involved in this inflammatory mass. I will discuss this with General Surgery and we can plan once the pathology is known. Thank you for allowing me to participate in the care of this patient. I will follow her with you. Alec Ugalde MD [facility] # [id number]
[2018-04-17] MEDS: PRAVACHOL 20 MG PO SCH (21:52)
[2018-04-17] MEDS ORDERED: Home Med 1 UNIT PO SCH ×2 (22:00)
[2018-04-18] MEDS: Insulin Lispro (humaLOG) LOW Coverage SC SCH ×5 (00:21→22:05)
[2018-04-18] MEDS: Piperacillin/Tazobact 3.375 gm 100 ML IVPB SCH ×3 (05:11→21:30)
[2018-04-18] MEDS: Dextrose 5%/0.45% NS 1,000 ML IV SCH ×2 (05:11→09:30)
[2018-04-18 06:54] LABS: BASO # 0.04 K/mm3 (0.0-2.0); BASO % 0.4 % (0.0-3.0); EOS # 0.4 (0.0-0.7); EOS % 3.6 % (1.5-5.0); GRAN # 6.55 (1.4-6.5); GRAN % 66.1 % (50.0-68.0); HEMOGLOBIN 7.8 g/dL (12.0-16.0); INR 1.36; LYMPH # 2.2 (1.2-3.4); LYMPH % 22.4 % (22.0-35.0); MEAN CELL VOLUME 85.1 fl (80.0-105.0); MEAN CORPUSCULAR HEMOGLOBIN 25.8 pg (25.0-35.0); MEAN CORPUSCULAR HGB CONC 30.4 g/dl (31.0-37.0); MEAN PLATELET VOLUME 8.3 fl (7.0-11.0); MONO # 0.7 (0.1-0.6); MONO % 7.5 % (1.0-6.0); PARTIAL THROMBOPLASTIN TIME 26.4 Seconds (25.1-36.5); PROTHROMBIN TIME 15.7 SECONDS (9.4-12.5); RBC 3.02 10^6/uL (3.5-6.1); RED CELL DISTRIBUTION WIDTH 15.6 % (11.5-14.5); WHITE BLOOD COUNT 9.9 10^3/uL (4.5-11.0)
[2018-04-18 07:37] LABS: ALB/GLOB RATIO 0.8 (1.1-1.8); ALBUMIN 2.9 g/dL (3.0-4.8); ALT/SGPT 20 U/L (7-56); AST/SGOT 31 U/L (14-36); BLOOD UREA NITROGEN 9 mg/dL (7-21); CALCIUM 8.8 mg/dL (8.4-10.5); GFR NON-AFRICAN AMERICAN > 60
--- NOTE | 2018-04-18 08:03 | CP.PCM.PN ---
Subjective - Date & Time of Evaluation Date of Evaluation: 04/18/18 Time of Evaluation: 07:20 - Subjective Subjective: Surgery progress note- Dr. Ayala Patient seen and examined at bedside. She reports feeling better with no complaints. NPO for LLQ biopsy by IR today. Having regular BM. She denied abd pain, N/V/D. Objective - Vital Signs/Intake and Output Vital Signs (last 24 hours): Temp Pulse Resp BP Pulse Ox 98.7 F 64 18 133/84 74 L 04/17/18 16:33 04/17/18 16:33 04/17/18 16:33 04/17/18 16:35 04/17/18 16:35 Intake and Output: 04/18/18 04/18/18 06:59 18:59 Intake Total 0 Balance 0 - Medications Medications: Current Medications Acetaminophen (Tylenol 325mg Tab) 650 mg PO Q6H PRN PRN Reason: Pain, Mild (1-3) Last Admin: 04/17/18 20:42 Dose: 650 mg Dextrose (Dextrose 50% Inj) 0 ml IV STAT PRN; Protocol PRN Reason: Hypoglycemia Protocol Duloxetine HCl (Cymbalta) 30 mg PO [facility] Last Admin: 04/17/18 21:50 Dose: 30 mg Famotidine (Pepcid) 20 mg PO 1000,2200 [facility] Last Admin: 04/17/18 21:50 Dose: 20 mg Gabapentin (Neurontin) 300 mg PO DAILY [facility]; Protocol Last Admin: 04/17/18 10:11 Dose: Not Given Home Med (Home Med) 1 unit PO [facility] Last Admin: 04/17/18 21:52 Dose: 1 unit Dextrose (Dextrose 5% In Water 1000 Ml) 1,000 mls @ 0 mls/hr IV .Q0M PRN; Protocol PRN Reason: Hypoglycemia Protocol Piperacillin Sod/Tazobactam Sod (Zosyn 3.375 In Ns 100ml) 100 mls @ 25 mls/hr IVPB Q8 [facility]; Protocol Stop: 04/23/18 11:16 Last Admin: 04/18/18 05:11 Dose: 25 mls/hr Iron Sucrose 200 mg/ Sodium (Chloride) 110 mls @ 110 mls/hr IVPB DAILY [facility] Stop: 04/20/18 11:31 Last Admin: 04/17/18 13:12 Dose: 110 mls/hr Dextrose/Sodium Chloride (Dextrose 5%/0.45% Ns 1000 Ml) 1,000 mls @ 100 mls/hr IV .Q10H [facility] Last Admin: 04/18/18 05:11 Dose: 100 mls/hr Insulin Human Lispro (Humalog Low) 0 units SC 0000,0600,1200,1800 [facility]; Protocol Last Admin: 04/18/18 06:16 Dose: Not Given Celecoxib [Celebrex] (200 Mg (Home Med)) 200 mg PO DAILY PRN PRN Reason: Pain, moderate (4-7) - Labs Labs: 04/18/18 06:25 04/18/18 06:25 PT 15.7 SECONDS (9.4-12.5) H 04/18/18 06:25 INR 1.36 04/18/18 06:25 APTT 26.4 Seconds (25.1-36.5) 04/18/18 06:25 - Constitutional Appears: Well, No Acute Distress - Head Exam Head Exam: ATRAUMATIC, NORMAL INSPECTION, NORMOCEPHALIC - Eye Exam Eye Exam: EOMI, Normal appearance, PERRL Pupil Exam: NORMAL ACCOMODATION, PERRL - ENT Exam ENT Exam: Mucous Membranes Moist, Normal Exam - Neck Exam Neck Exam: Full ROM, Normal Inspection. absent: Lymphadenopathy - Cardiovascular Exam Cardiovascular Exam: REGULAR RHYTHM, +S1, +S2. absent: Murmur - GI/Abdominal Exam GI & Abdominal Exam: Soft, Normal Bowel Sounds. absent: Guarding, Rigid, Tenderness, Mass, Organomegaly - Extremities Exam Extremities Exam: Full ROM, Normal Capillary Refill, Normal Inspection. absent: Joint Swelling, Pedal Edema - Neurological Exam Neurological Exam: Alert, Awake, Oriented x3 - Psychiatric Exam Psychiatric exam: Normal Affect, Normal Mood - Skin Skin Exam: Dry, Intact, Normal Color, Warm Assessment and Plan - Assessment and Plan (Free Text) Assessment: 67 y/o female admitted for syncope episode. Found to have 7cm LLQ complex mass on CT A/P Plan: -Patient asymptomatic, afebrile, no leukocytosis, negative blood Cx -vaginal US 04/16/17: unremarkable, ovaries not identified -continue abx/IVF -LLQ mass biopsy by IR today pm -will continue to follow -further recs as per surgical attending Dr. Jamie Rothman, DO
--- NOTE | 2018-04-18 09:44 | CP.PCM.PN ---
<Jeanette Aburto - Last Filed: 04/18/18 15:10> Subjective - Date & Time of Evaluation Date of Evaluation: 04/18/18 Time of Evaluation: 07:15 - Subjective Subjective: Pgy3 Medicine Progress note for Dr. Fields Patient seen and examined at bedside. Nursing reports no acute events overnight. Patient for biopsy today. Patient had no acute complaints of fever, chills, headache, dizziness, chest pain, palpitations, SOB, cough, nausea, vomiting, bowel/bladder complaints, pain/swelling in her legs b/l. She reports her night sweats have resolved and her abdominal pain is minimal. Objective - Vital Signs/Intake and Output Vital Signs (last 24 hours): Temp Pulse Resp BP Pulse Ox 98.1 F 64 20 130/75 95 04/18/18 08:19 04/18/18 08:19 04/18/18 08:19 04/18/18 08:19 04/18/18 08:19 Intake and Output: 04/18/18 04/18/18 06:59 18:59 Intake Total 0 Balance 0 - Medications Medications: Current Medications Acetaminophen (Tylenol 325mg Tab) 650 mg PO Q6H PRN PRN Reason: Pain, Mild (1-3) Last Admin: 04/17/18 20:42 Dose: 650 mg Dextrose (Dextrose 50% Inj) 0 ml IV STAT PRN; Protocol PRN Reason: Hypoglycemia Protocol Duloxetine HCl (Cymbalta) 30 mg PO [facility] Last Admin: 04/17/18 21:50 Dose: 30 mg Famotidine (Pepcid) 20 mg PO 1000,2200 COUNTS INCLUDE 234 BEDS AT THE [facility] Last Admin: 04/18/18 09:24 Dose: 20 mg Gabapentin (Neurontin) 300 mg PO DAILY COUNTS INCLUDE 234 BEDS AT THE [facility]; Protocol Last Admin: 04/18/18 09:36 Dose: Not Given Home Med (Home Med) 1 unit PO [facility] Last Admin: 04/17/18 21:52 Dose: 1 unit Dextrose (Dextrose 5% In Water 1000 Ml) 1,000 mls @ 0 mls/hr IV .Q0M PRN; Protocol PRN Reason: Hypoglycemia Protocol Piperacillin Sod/Tazobactam Sod (Zosyn 3.375 In Ns 100ml) 100 mls @ 25 mls/hr IVPB Q8 COUNTS INCLUDE 234 BEDS AT THE [facility]; Protocol Stop: 04/23/18 11:16 Last Admin: 04/18/18 05:11 Dose: 25 mls/hr Iron Sucrose 200 mg/ Sodium (Chloride) 110 mls @ 110 mls/hr IVPB DAILY [facility] Stop: 04/20/18 11:31 Last Admin: 04/18/18 09:24 Dose: 110 mls/hr Dextrose/Sodium Chloride (Dextrose 5%/0.45% Ns 1000 Ml) 1,000 mls @ 100 mls/hr IV .Q10H [facility] Last Admin: 04/18/18 05:11 Dose: 100 mls/hr Insulin Human Lispro (Humalog Low) 0 units SC 0000,0600,1200,1800 [facility]; Protocol Last Admin: 04/18/18 06:16 Dose: Not Given Celecoxib [Celebrex] (200 Mg (Home Med)) 200 mg PO DAILY PRN PRN Reason: Pain, moderate (4-7) - Labs Labs: 04/18/18 06:25 04/18/18 06:25 PT 15.7 SECONDS (9.4-12.5) H 04/18/18 06:25 INR 1.36 04/18/18 06:25 APTT 26.4 Seconds (25.1-36.5) 04/18/18 06:25 - Constitutional Appears: Non-toxic, No Acute Distress - Head Exam Head Exam: ATRAUMATIC, NORMAL INSPECTION, NORMOCEPHALIC - Eye Exam Eye Exam: EOMI, Normal appearance, PERRL. absent: Conjunctival injection, Scleral icterus - ENT Exam ENT Exam: Mucous Membranes Moist - Neck Exam Neck Exam: Full ROM, Normal Inspection - Respiratory Exam Respiratory Exam: Clear to Ausculation Bilateral, NORMAL BREATHING PATTERN. absent: Accessory Muscle Use, Rales, Rhonchi, Wheezes, Respiratory Distress - Cardiovascular Exam Cardiovascular Exam: +S1, +S2 - GI/Abdominal Exam GI & Abdominal Exam: Soft, Normal Bowel Sounds. absent: Distended, Firm, Guarding, Rigid, Tenderness - Extremities Exam Extremities Exam: Normal Capillary Refill, Normal Inspection. absent: Pedal Edema - Neurological Exam Neurological Exam: Alert, Awake, CN II-XII Intact, Oriented x3 - Psychiatric Exam Psychiatric exam: Normal Affect, Normal Mood - Skin Skin Exam: Dry, Intact, Normal Color, Warm Assessment and Plan - Assessment and Plan (Free Text) Assessment: 1. LLQ abdominal mass vs abscess 2. Syncope- resolved 3. Iron deficient anemia 4. Thrombocytosis 5. HTN- resolved 6. DM2 7. Hypercholesterolemia 9. Cervical radiculopathy 10. Lumbar disc herniation and radiculopathy 11. LLE sciatica 12. GERD Plan: Patient clinically improved this AM. For LLQ mass biopsy today. Continued on Zosyn at this time as per ID. Blood and urine negative and CXR negative. Patient has been afebrile and leukocytosis has resolved. She is receiving IV venofer and is refusing any blood transfusions. H&H noted and patient is aware. Urology reccs regarding L sided hydronephrosis appreciated. As GFR is normal, hydronephrosis likely to resolve with resolution of mass which is likely an old abscess. Flow cytometry reveals no immunophenotypic evidence for abnormal myeloid maturation, increase in blasts, or a lymphoproliferative disorder. Patient has been normotensive since admission off BP meds. Patient can restart diet after biopsy. Will d/c fluids and continue accuchecks and RISS low ACHS. Patient's home HLD medication continued as requested. Continued home Celebrex, Cymbalta, and Neurontin at this time. GI ppx on board. Appreciate reccs from surgery, GI, heme/onc, IR, ID, urology, cardio, and neurology. Will continue to monitor patient closely. Patient spoken to in detail regarding hospital course and questions were answered and addressed thoroughly. Will reach out to patient's son later today. Discussed with Dr. Donnie Aburto PGY3 <Lonny Fields S - Last Filed: 04/20/18 15:37> Objective - Vital Signs/Intake and Output Vital Signs (last 24 hours): Temp Pulse Resp BP Pulse Ox 97.6 F 54 L 18 138/85 95 04/20/18 06:00 04/20/18 06:00 04/20/18 06:00 04/20/18 06:00 04/20/18 06:00 Intake and Output: 04/20/18 04/20/18 06:59 18:59 Intake Total 2215 Balance 2215 - Medications Medications: Current Medications Acetaminophen (Tylenol 325mg Tab) 650 mg PO Q6H PRN PRN Reason: Pain, Mild (1-3) Last Admin: 04/20/18 00:03 Dose: 650 mg Dextrose (Dextrose 50% Inj) 0 ml IV STAT PRN; Protocol PRN Reason: Hypoglycemia Protocol Duloxetine HCl (Cymbalta) 30 mg PO HS COUNTS INCLUDE 234 BEDS AT THE [facility] Last Admin: 04/19/18 22:30 Dose: 30 mg Famotidine (Pepcid) 20 mg PO 1000,2200 [facility] Last Admin: 04/20/18 10:11 Dose: 20 mg Gabapentin (Neurontin) 300 mg PO DAILY COUNTS INCLUDE 234 BEDS AT THE [facility]; Protocol Last Admin: 04/20/18 10:33 Dose: Not Given Heparin Sodium (Porcine) (Heparin) 5,000 units SC Q12 [facility]; Protocol Last Admin: 04/20/18 10:11 Dose: Not Given Home Med (Home Med) 1 unit PO HS COUNTS INCLUDE 234 BEDS AT THE [facility] Last Admin: 04/19/18 22:30 Dose: 1 unit Dextrose (Dextrose 5% In Water 1000 Ml) 1,000 mls @ 0 mls/hr IV .Q0M PRN; Protocol PRN Reason: Hypoglycemia Protocol Piperacillin Sod/Tazobactam Sod (Zosyn 3.375 In Ns 100ml) 100 mls @ 25 mls/hr IVPB Q8 [facility]; Protocol Stop: 04/23/18 11:16 Last Admin: 04/20/18 06:15 Dose: 25 mls/hr Insulin Human Lispro (Humalog Low) 0 units SC ACHS [facility]; Protocol Last Admin: 04/20/18 09:00 Dose: Not Given Celecoxib [Celebrex] (200 Mg (Home Med)) 200 mg PO DAILY PRN PRN Reason: Pain, moderate (4-7) Ondansetron HCl (Zofran Inj) 4 mg IVP Q6H PRN PRN Reason: Nausea/Vomiting - Labs Labs: 04/20/18 08:20 04/20/18 08:20 PT 15.7 SECONDS (9.4-12.5) H 04/18/18 06:25 INR 1.36 04/18/18 06:25 APTT 26.4 Seconds (25.1-36.5) 04/18/18 06:25 Assessment and Plan - Assessment and Plan (Free Text) Plan: Pt seen and examined by me. This is late entry. I have reviewed the note of the medical laboratory scientist and I agree with it. I have discussed the assessment and plan with the resident. I have reviewed the medications and the last labs. Pt with LLKalin can. I suspect that it by be an abscess. Th WCC has normalized with IV Abx. Pt will get bx done to confirm. Malignancy is also possible. She has L hydro and Urology is consulted. Heme/Onc is following the pt.
--- NOTE | 2018-04-18 10:52 | PN ---
DATE: 04/18/2018 SUBJECTIVE: The patient is lying in bed. She still has some intermittent left lower quadrant abdominal pain. She denies any rectal bleeding, melena, hematemesis. OBJECTIVE: VITAL SIGNS: Reveal temperature of 98.1, blood pressure 130/75, heart rate 64. HEENT: Reveal sclerae to be white. Conjunctivae pale. NECK: Supple. CHEST: Lungs are clear. HEART: Reveals regular rate and rhythm. ABDOMEN: Soft. Mild left lower quadrant tenderness. No rebound or guarding. EXTREMITIES: Show no edema. LABORATORY DATA: Reveal white blood cell count 9.9, hemoglobin 7.8, platelet count 565,000. Chemistries reveal normal electrolytes. IMPRESSION: 1. This is a 67-year-old female with a complex mass in the left lower quadrant. His chest is of a necrotic mass with some fluid and debris in the mass. The concern is for a malignancy. 2. Anemia. RECOMMENDATIONS: 1. We will transfuse 2 units of packed red blood cells. There is no evidence of active GI bleeding. 2. The patient is to have a CT-guided biopsy by IR. 3. The patient is tentatively scheduled for exploratory surgery early next week. I have discussed this case with Dr. Ayala. Derrell Mcbride MD
[2018-04-18] MEDS ORDERED: Lidocaine 1% Inj (20ml) ONE (10:57)
[2018-04-18] MEDS ORDERED: Midazolam 2 MG/2 ML VIAL ONE (10:58)
[2018-04-18] MEDS ORDERED: Midazolam 2 MG/2 ML VIAL IVP ONE (11:00)
[2018-04-18] MEDS ORDERED: Sodium Chloride 0.45% 1,000 ML IV SCH (11:30)
--- NOTE | 2018-04-18 12:05 | CP.PCM.PCO ---
Physician Communication Note - Physician Communication Note Physician Communication Note: Pt for CT guid bx llq mass,per PMD await bx result,eval if abscess req.antb
--- NOTE | 2018-04-18 13:19 | CP.PCM.PN ---
<Chriss Parrish - Last Filed: 04/18/18 13:16> Subjective - Date & Time of Evaluation Date of Evaluation: 04/18/18 Time of Evaluation: 09:40 - Subjective Subjective: Infectious disease progress note: Pt seen and examined at bedside. No acute events overnight. Patient states that she is doing well. States that her night sweats has now resolved. No complaints. NPO for biopsy today. 12 Point ROS performed and neg other than stated above. Objective - Vital Signs/Intake and Output Vital Signs (last 24 hours): Temp Pulse Resp BP Pulse Ox 98.2 F 61 14 123/65 96 04/18/18 12:08 04/18/18 12:08 04/18/18 12:08 04/18/18 12:08 04/18/18 12:08 Intake and Output: 04/18/18 04/18/18 06:59 18:59 Intake Total 0 Balance 0 - Medications Medications: Current Medications Acetaminophen (Tylenol 325mg Tab) 650 mg PO Q6H PRN PRN Reason: Pain, Mild (1-3) Last Admin: 04/17/18 20:42 Dose: 650 mg Dextrose (Dextrose 50% Inj) 0 ml IV STAT PRN; Protocol PRN Reason: Hypoglycemia Protocol Duloxetine HCl (Cymbalta) 30 mg PO [facility] Last Admin: 04/17/18 21:50 Dose: 30 mg Famotidine (Pepcid) 20 mg PO 1000,2200 [facility] Last Admin: 04/18/18 09:24 Dose: 20 mg Gabapentin (Neurontin) 300 mg PO DAILY [facility]; Protocol Last Admin: 04/18/18 09:36 Dose: Not Given Home Med (Home Med) 1 unit PO HS [facility] Last Admin: 04/17/18 21:52 Dose: 1 unit Dextrose (Dextrose 5% In Water 1000 Ml) 1,000 mls @ 0 mls/hr IV .Q0M PRN; Protocol PRN Reason: Hypoglycemia Protocol Piperacillin Sod/Tazobactam Sod (Zosyn 3.375 In Ns 100ml) 100 mls @ 25 mls/hr IVPB Q8 [facility]; Protocol Stop: 04/23/18 11:16 Last Admin: 04/18/18 05:11 Dose: 25 mls/hr Iron Sucrose 200 mg/ Sodium (Chloride) 110 mls @ 110 mls/hr IVPB DAILY [facility] Stop: 04/20/18 11:31 Last Admin: 04/18/18 09:24 Dose: 110 mls/hr Dextrose/Sodium Chloride (Dextrose 5%/0.45% Ns 1000 Ml) 1,000 mls @ 100 mls/hr IV .Q10H [facility] Last Admin: 04/18/18 05:11 Dose: 100 mls/hr Sodium Chloride (Sodium Chloride 0.45%) 1,000 mls @ 80 mls/hr IV .[id number] [facility] Stop: 04/18/18 20:00 Insulin Human Lispro (Humalog Low) 0 units SC ACHS [facility]; Protocol Last Admin: 04/18/18 12:26 Dose: Not Given Celecoxib [Celebrex] (200 Mg (Home Med)) 200 mg PO DAILY PRN PRN Reason: Pain, moderate (4-7) Ondansetron HCl (Zofran Inj) 4 mg IVP Q6H PRN PRN Reason: Nausea/Vomiting - Labs Labs: 04/18/18 06:25 04/18/18 06:25 PT 15.7 SECONDS (9.4-12.5) H 04/18/18 06:25 INR 1.36 04/18/18 06:25 APTT 26.4 Seconds (25.1-36.5) 04/18/18 06:25 - Constitutional Appears: No Acute Distress - Head Exam Head Exam: ATRAUMATIC, NORMOCEPHALIC - Eye Exam Eye Exam: EOMI - ENT Exam ENT Exam: Mucous Membranes Moist - Respiratory Exam Respiratory Exam: Clear to Ausculation Bilateral Additional comments: no r/r/w - Cardiovascular Exam Cardiovascular Exam: REGULAR RHYTHM, +S1, +S2 - GI/Abdominal Exam GI & Abdominal Exam: Soft, Normal Bowel Sounds - Extremities Exam Extremities Exam: absent: Calf Tenderness, Pedal Edema - Neurological Exam Neurological Exam: Alert, Awake, Oriented x3 - Psychiatric Exam Psychiatric exam: Normal Mood - Skin Skin Exam: Dry, Intact Assessment and Plan - Assessment and Plan (Free Text) Assessment: 67yo female PMHx HTN, GERD, DM2, lumbar disc herniation and LLE sciatica presents with an episode of syncope. Found to have leukocytosis. CTAP shows LLQ necrotic mass vs abcess. - NPO for biopsy of necrotic mass today - Continue abx with Zosyn - F/u septic work up - Blood cultures neg thus far - CXR and UA neg - Cont to monitor for any changes Case and plan was reviewed and discussed with Dr Davidson. <Servando Davidson - Last Filed: 04/18/18 16:59> Objective - Vital Signs/Intake and Output Vital Signs (last 24 hours): Temp Pulse Resp BP Pulse Ox 98.2 F 61 14 123/65 96 04/18/18 12:08 04/18/18 12:08 04/18/18 12:08 04/18/18 12:08 04/18/18 12:08 Intake and Output: 04/18/18 04/18/18 06:59 18:59 Intake Total 0 120 Balance 0 120 - Medications Medications: Current Medications Acetaminophen (Tylenol 325mg Tab) 650 mg PO Q6H PRN PRN Reason: Pain, Mild (1-3) Last Admin: 04/17/18 20:42 Dose: 650 mg Dextrose (Dextrose 50% Inj) 0 ml IV STAT PRN; Protocol PRN Reason: Hypoglycemia Protocol Duloxetine HCl (Cymbalta) 30 mg PO [facility] Last Admin: 04/17/18 21:50 Dose: 30 mg Famotidine (Pepcid) 20 mg PO 1000,2200 [facility] Last Admin: 04/18/18 09:24 Dose: 20 mg Gabapentin (Neurontin) 300 mg PO DAILY [facility]; Protocol Last Admin: 04/18/18 09:36 Dose: Not Given Home Med (Home Med) 1 unit PO [facility] Last Admin: 04/17/18 21:52 Dose: 1 unit Dextrose (Dextrose 5% In Water 1000 Ml) 1,000 mls @ 0 mls/hr IV .Q0M PRN; Protocol PRN Reason: Hypoglycemia Protocol Piperacillin Sod/Tazobactam Sod (Zosyn 3.375 In Ns 100ml) 100 mls @ 25 mls/hr IVPB Q8 [facility]; Protocol Stop: 04/23/18 11:16 Last Admin: 04/18/18 13:55 Dose: 25 mls/hr Iron Sucrose 200 mg/ Sodium (Chloride) 110 mls @ 110 mls/hr IVPB DAILY [facility] Stop: 04/20/18 11:31 Last Admin: 04/18/18 09:24 Dose: 110 mls/hr Sodium Chloride (Sodium Chloride 0.45%) 1,000 mls @ 80 mls/hr IV .[id number] [facility] Stop: 04/18/18 20:00 Insulin Human Lispro (Humalog Low) 0 units SC [facility]; Protocol Last Admin: 04/18/18 12:26 Dose: Not Given Celecoxib [Celebrex] (200 Mg (Home Med)) 200 mg PO DAILY PRN PRN Reason: Pain, moderate (4-7) Ondansetron HCl (Zofran Inj) 4 mg IVP Q6H PRN PRN Reason: Nausea/Vomiting - Labs Labs: 04/18/18 06:25 04/18/18 06:25 PT 15.7 SECONDS (9.4-12.5) H 04/18/18 06:25 INR 1.36 04/18/18 06:25 APTT 26.4 Seconds (25.1-36.5) 04/18/18 06:25 Assessment and Plan - Assessment and Plan (Free Text) Assessment: Infectious diseases Attending Physician Attestation Patient seen and examined, discussed with curator medical museum. I have reviewed the patient's history of present illness, past medical, social, personal and family histories, pertinent physical exam findings, course so far in this hospital admission, pertinent laboratory and imaging results. I agree with the above findings, assessment and plan. In addition, continue Zosyn for left lower quadrant necrotic mass R/O malignancy or infection. Follow up results and cultures.
--- NOTE | 2018-04-18 13:27 | PN ---
DATE: 04/18/2018 CARDIOLOGY FOLLOWUP SUBJECTIVE: The patient is without complaints. OBJECTIVE: VITAL SIGNS: Blood pressure 123/65, heart rates in the 60s. NECK: Negative JVD. LUNGS: Without rales. HEART: Reveal S1, S2. EXTREMITIES: Without edema. LABORATORY DATA: Hemoglobin is 7.8. Chemistries; BUN and creatinine unremarkable. IMPRESSION: 1. Syncope. 2. Left lower quadrant mass. 3. Anemia. 4. Diabetes mellitus. 5. History of hypertension. The patient is scheduled for needle biopsy today of the mass. Jaylen Martin MD
--- NOTE | 2018-04-18 16:19 | CT ---
PROCEDURE: CT guided left pelvis biopsy. HISTORY: Infiltrative mass between the left external iliac vessels and rectosigmoid colon. Evaluate for malignant or inflammatory etiologies. PHYSICIAN(S): Jaylen Vickers MD. TECHNIQUE: The relative risks and indications of the procedure were explained to the patient and consent obtained. The patient was placed supine on the CT scanner and preliminary images through the pelvis obtained. Conscious sedation and monitoring were provided throughout the procedure by a nurse. There is a 7 cm infiltrative mass involving the left external iliac vessels and rectosigmoid colon. Punctate air is seen. The differential includes inflammatory and neoplastic processes.. A left oblique approach was selected and the area prepped and draped in the usual sterile fashion. 1% Xylocaine was used to anesthetize the skin and soft tissues. A 17-gauge guiding needle was advanced into the 7 cm infiltrative area. Its position was confirmed with CT. Using coaxial technique, multiple core biopsies were obtained. The postprocedure images show no evidence of significant hemorrhage. IMPRESSION: 1. CT-guided left pelvis biopsy as described above. Specimens were sent for histology and microbiology
--- NOTE | 2018-04-18 20:06 | PN ---
DATE: 04/18/2018 SUBJECTIVE: Ms. Horner underwent CT-guided biopsy of the left lower quadrant mass by Dr. Jaylen Vickers. No complications. Hemoglobin is 7.8. She has refused blood transfusion . She has severe iron-deficiency anemia. IV iron was ordered yesterday. Transvaginal ultrasound is noncontributory. Ovaries could not be visualized. Left lower quadrant mass is infiltrative in nature. CA-125 is normal. CA19-9 is normal. CEA is 2.1. All markers for malignancy are negative. The flow cytometry on peripheral blood was also ordered because of leukocytosis, which was negative for leukemia or lymphoma. She is currently on IV antibiotics as per ID and Surgery, Dr. Ayala evaluated. REVIEW OF SYSTEMS: As per HPI. Rest of 12-point review of systems is reviewed and negative. PHYSICAL EXAMINATION: VITAL SIGNS: Temperature 97.8, blood pressure 101/57, heart rate 71 per minute, respiratory rate 20 per minute, oxygen saturation 97% on room air. HEENT: Pallor positive. NECK: No lymphadenopathy. CHEST: Air entry present and equal bilaterally. No added sound. CARDIOVASCULAR: S1, S2 normal. No murmur or gallop. ABDOMEN: Soft and nontender. No rebound tenderness. EXTREMITIES: No edema. SKIN: No petechiae. No rash. SPINE: Nontender. LABORATORY DATA: White count 9.9, hemoglobin 7.8, hematocrit 25.7, platelets 565. Sodium 141, potassium 3.7, iron 20. Tumor markers as per HPI. MEDICATIONS: Tylenol 650 mg every 6 hours p.r.n., dextrose, Cymbalta 30 mg p.o. at bedtime, Pepcid 20 mg p.o. b.i.d., Neurontin 300 mg p.o. daily, iron 200 mg daily for three doses, Zofran p.r.n., Zosyn and IV fluids. ASSESSMENT AND PLAN: 1. Left lower quadrant necrotic infiltrative mass. CT-guided biopsy done by Dr. Jaylen Vickers, pathology awaited. She was evaluated by Surgery, Dr. Ayala. Possible exploratory laparotomy next week. Currently on intravenous antibiotics as per Infectious Disease. 2. Severe anemia. She has been refusing blood transfusion, currently on intravenous iron. 3. Infectious Disease, no growth on blood culture and urine culture. Currently on Zosyn. 4. Pathology and the biopsy awaited, likely colonic malignancy or infection inflammation due to diverticulitis. Dr. Mcbride's, surgery note reviewed. Discussed with the patient, sister , all of the above. Discussed with Dr. Fields. Thank you Dr. Fields for allowing us to participate in Ms. Horner's care. Kimberly Ferguson MD [facility]
[2018-04-18] MEDS: PRAVACHOL 20 MG PO SCH (21:29)
[2018-04-19] MEDS: Piperacillin/Tazobact 3.375 gm 100 ML IVPB SCH ×3 (05:14→17:49)
--- NOTE | 2018-04-19 05:22 | CP.PCM.PN ---
<Jeanette Aburto - Last Filed: 04/19/18 09:43> Subjective - Date & Time of Evaluation Date of Evaluation: 04/19/18 Time of Evaluation: 07:15 - Subjective Subjective: [facility] Progress note for Dr. Fields Patient seen and examined at bedside. Nursing reported no acute events overnight. Patient tolerated diet and reported feeling well this AM. She reported feeling less "foggy" and overall feels better. Denied acute complaints of fever, chills, headache, dizziness, chest pain, palpitations, SOB, cough, abd pain, nausea, vomiting, bowel/bladder complaints, pain/swelling in her legs bilaterally. Objective - Vital Signs/Intake and Output Vital Signs (last 24 hours): Temp Pulse Resp BP Pulse Ox 98.7 F 69 20 101/57 L 97 04/18/18 17:52 04/18/18 17:52 04/18/18 17:52 04/18/18 17:52 04/18/18 17:52 Intake and Output: 04/18/18 04/19/18 18:59 06:59 Intake Total 520 Balance 520 - Medications Medications: Current Medications Acetaminophen (Tylenol 325mg Tab) 650 mg PO Q6H PRN PRN Reason: Pain, Mild (1-3) Last Admin: 04/18/18 21:32 Dose: 650 mg Dextrose (Dextrose 50% Inj) 0 ml IV STAT PRN; Protocol PRN Reason: Hypoglycemia Protocol Duloxetine HCl (Cymbalta) 30 mg PO HS [facility] Last Admin: 04/18/18 21:29 Dose: 30 mg Famotidine (Pepcid) 20 mg PO 1000,2200 [facility] Last Admin: 04/18/18 21:29 Dose: 20 mg Gabapentin (Neurontin) 300 mg PO DAILY [facility]; Protocol Last Admin: 04/18/18 09:36 Dose: Not Given Home Med (Home Med) 1 unit PO HS [facility] Last Admin: 04/18/18 21:29 Dose: 1 unit Dextrose (Dextrose 5% In Water 1000 Ml) 1,000 mls @ 0 mls/hr IV .Q0M PRN; Protocol PRN Reason: Hypoglycemia Protocol Piperacillin Sod/Tazobactam Sod (Zosyn 3.375 In Ns 100ml) 100 mls @ 25 mls/hr IVPB Q8 [facility]; Protocol Stop: 04/23/18 11:16 Last Admin: 04/19/18 05:14 Dose: 25 mls/hr Iron Sucrose 200 mg/ Sodium (Chloride) 110 mls @ 110 mls/hr IVPB DAILY [facility] Stop: 04/20/18 11:31 Last Admin: 04/18/18 09:24 Dose: 110 mls/hr Insulin Human Lispro (Humalog Low) 0 units SC ACHS [facility]; Protocol Last Admin: 04/18/18 22:05 Dose: Not Given Celecoxib [Celebrex] (200 Mg (Home Med)) 200 mg PO DAILY PRN PRN Reason: Pain, moderate (4-7) Ondansetron HCl (Zofran Inj) 4 mg IVP Q6H PRN PRN Reason: Nausea/Vomiting - Labs Labs: 04/18/18 06:25 04/18/18 06:25 PT 15.7 SECONDS (9.4-12.5) H 04/18/18 06:25 INR 1.36 04/18/18 06:25 APTT 26.4 Seconds (25.1-36.5) 04/18/18 06:25 - Constitutional Appears: Non-toxic, No Acute Distress - Head Exam Head Exam: ATRAUMATIC, NORMAL INSPECTION, NORMOCEPHALIC - Eye Exam Eye Exam: EOMI, Normal appearance. absent: Conjunctival injection, Scleral icterus Pupil Exam: NORMAL ACCOMODATION - ENT Exam ENT Exam: Mucous Membranes Moist - Neck Exam Neck Exam: Full ROM, Normal Inspection. absent: Lymphadenopathy - Respiratory Exam Respiratory Exam: Clear to Ausculation Bilateral, NORMAL BREATHING PATTERN. absent: Accessory Muscle Use, Rales, Rhonchi, Wheezes, Respiratory Distress - Cardiovascular Exam Cardiovascular Exam: REGULAR RHYTHM, +S1, +S2. absent: Murmur - GI/Abdominal Exam GI & Abdominal Exam: Soft, Normal Bowel Sounds. absent: Distended, Firm, Guarding, Rigid, Tenderness - Extremities Exam Extremities Exam: Normal Capillary Refill, Normal Inspection. absent: Pedal Edema - Neurological Exam Neurological Exam: Alert, Awake, CN II-XII Intact, Oriented x3 - Psychiatric Exam Psychiatric exam: Normal Affect, Normal Mood - Skin Skin Exam: Dry, Intact, Normal Color, Warm Assessment and Plan - Assessment and Plan (Free Text) Assessment: 1. LLQ abdominal mass vs abscess 2. Syncope- resolved 3. Iron deficient anemia 4. Thrombocytosis 5. HTN- resolved 6. DM2 7. Hypercholesterolemia 9. Cervical radiculopathy 10. Lumbar disc herniation and radiculopathy 11. LLE sciatica 12. GERD Plan: Patient's blood work, vitals, and imaging reviewed. Patient is POD#1 IR biopsy of LLQ mass- pending path. Patient afebrile overnight and leukocytosis resolved. Patient on day 4 of Zosyn and to be continued for 4 more days as per ID. Suspect LLQ mass is likely an old abscess. Patient to receive 2 more doses of IV Venofer to complete 4 days total. Flow cytometry results reviewed in detail. Patient will follow up with Dr. Phyllis jimenez/konrad as outpatient after discharge. Patient has been normotensive since admission off BP meds. Continue accuchecks and RISS low ACHS. Patient's home HLD medication continued as requested. Continued home Celebrex, Cymbalta, and Neurontin at this time. Appreciate reccs from surgery, GI, barbara/onc, IR, ID, urology, cardio, and neurology. GI and DVT ppx on board. Patient on HHD ALF diet. Patient to continue working with physical therapy. Will continue to monitor patient closely. Patient spoken to in detail regarding hospital course and questions were answered and addressed thoroughly. Discussed with Dr. Donnie Aburot PGY3 <Lonny Fielsd S - Last Filed: 04/20/18 15:20> Objective - Vital Signs/Intake and Output Vital Signs (last 24 hours): Temp Pulse Resp BP Pulse Ox 97.6 F 54 L 18 138/85 95 04/20/18 06:00 04/20/18 06:00 04/20/18 06:00 04/20/18 06:00 04/20/18 06:00 Intake and Output: 04/20/18 04/20/18 06:59 18:59 Intake Total 2215 Balance 2215 - Medications Medications: Current Medications Acetaminophen (Tylenol 325mg Tab) 650 mg PO Q6H PRN PRN Reason: Pain, Mild (1-3) Last Admin: 04/20/18 00:03 Dose: 650 mg Dextrose (Dextrose 50% Inj) 0 ml IV STAT PRN; Protocol PRN Reason: Hypoglycemia Protocol Duloxetine HCl (Cymbalta) 30 mg PO HS [facility] Last Admin: 04/19/18 22:30 Dose: 30 mg Famotidine (Pepcid) 20 mg PO 1000,2200 [facility] Last Admin: 04/20/18 10:11 Dose: 20 mg Gabapentin (Neurontin) 300 mg PO DAILY [facility]; Protocol Last Admin: 04/20/18 10:33 Dose: Not Given Heparin Sodium (Porcine) (Heparin) 5,000 units SC Q12 [facility]; Protocol Last Admin: 04/20/18 10:11 Dose: Not Given Home Med (Home Med) 1 unit PO HS [facility] Last Admin: 04/19/18 22:30 Dose: 1 unit Dextrose (Dextrose 5% In Water 1000 Ml) 1,000 mls @ 0 mls/hr IV .Q0M PRN; Protocol PRN Reason: Hypoglycemia Protocol Piperacillin Sod/Tazobactam Sod (Zosyn 3.375 In Ns 100ml) 100 mls @ 25 mls/hr IVPB Q8 [facility]; Protocol Stop: 04/23/18 11:16 Last Admin: 04/20/18 06:15 Dose: 25 mls/hr Insulin Human Lispro (Humalog Low) 0 units SC ACHS [facility]; Protocol Last Admin: 04/20/18 09:00 Dose: Not Given Celecoxib [Celebrex] (200 Mg (Home Med)) 200 mg PO DAILY PRN PRN Reason: Pain, moderate (4-7) Ondansetron HCl (Zofran Inj) 4 mg IVP Q6H PRN PRN Reason: Nausea/Vomiting - Labs Labs: 04/20/18 08:20 04/20/18 08:20 PT 15.7 SECONDS (9.4-12.5) H 04/18/18 06:25 INR 1.36 04/18/18 06:25 APTT 26.4 Seconds (25.1-36.5) 04/18/18 06:25 Assessment and Plan - Assessment and Plan (Free Text) Plan: Pt seen and examined by me. This is late entry. I have reviewed the note of the medical lab scientist and I agree with it. I have discussed the assessment and plan with the resident. I have reviewed the medications and the last labs. Pt has a abd mass in the LLQ. She had a bx and is waiting for the final results. She is on Zosyn for possbile abscess. Oncology following. She is not having pain. She is on Cymbalta and will continue. Flow cytometry is pending.
[2018-04-19 06:40] LABS: BASO # 0.02 K/mm3 (0.0-2.0); BASO % 0.2 % (0.0-3.0); EOS # 0.3 (0.0-0.7); EOS % 3.3 % (1.5-5.0); GRAN # 6.03 (1.4-6.5); GRAN % 61.1 % (50.0-68.0); LYMPH # 2.7 (1.2-3.4); LYMPH % 27.6 % (22.0-35.0); MEAN CELL VOLUME 85.8 fl (80.0-105.0); MEAN CORPUSCULAR HEMOGLOBIN 25.8 pg (25.0-35.0); MEAN CORPUSCULAR HGB CONC 30.1 g/dl (31.0-37.0); MEAN PLATELET VOLUME 8.4 fl (7.0-11.0); MONO # 0.8 (0.1-0.6); MONO % 7.8 % (1.0-6.0); RBC 3.1 10^6/uL (3.5-6.1); RED CELL DISTRIBUTION WIDTH 15.6 % (11.5-14.5); WHITE BLOOD COUNT 9.9 10^3/uL (4.5-11.0)
[2018-04-19] MEDS: Insulin Lispro (humaLOG) LOW Coverage SC SCH ×4 (07:34→22:31)
[2018-04-19 07:45] LABS: ALB/GLOB RATIO 0.9 (1.1-1.8); ALBUMIN 3.2 g/dL (3.0-4.8); ALT/SGPT 12 U/L (7-56); AST/SGOT 21 U/L (14-36); BLOOD UREA NITROGEN 9 mg/dL (7-21); CALCIUM 8.9 mg/dL (8.4-10.5); GFR NON-AFRICAN AMERICAN > 60
--- NOTE | 2018-04-19 07:56 | CP.PCM.PN ---
Subjective - Date & Time of Evaluation Date of Evaluation: 04/19/18 Time of Evaluation: 07:52 - Subjective Subjective: Resident Progress Note for Surgery: Dr. Ayala Patient examined at bedside. Patient is s/p LLQ biopsy which she tolerated well. Patient is also tolerating diet and has had bowel movement. Denies fevers, chills, nausea, vomiting. Objective - Vital Signs/Intake and Output Vital Signs (last 24 hours): Temp Pulse Resp BP Pulse Ox 98.7 F 69 20 101/57 L 97 04/18/18 17:52 04/18/18 17:52 04/18/18 17:52 04/18/18 17:52 04/18/18 17:52 Intake and Output: 04/19/18 04/19/18 06:59 18:59 Intake Total 420 Balance 420 - Medications Medications: Current Medications Acetaminophen (Tylenol 325mg Tab) 650 mg PO Q6H PRN PRN Reason: Pain, Mild (1-3) Last Admin: 04/18/18 21:32 Dose: 650 mg Dextrose (Dextrose 50% Inj) 0 ml IV STAT PRN; Protocol PRN Reason: Hypoglycemia Protocol Duloxetine HCl (Cymbalta) 30 mg PO HS [facility] Last Admin: 04/18/18 21:29 Dose: 30 mg Famotidine (Pepcid) 20 mg PO 1000,2200 [facility] Last Admin: 04/18/18 21:29 Dose: 20 mg Gabapentin (Neurontin) 300 mg PO DAILY [facility]; Protocol Last Admin: 04/18/18 09:36 Dose: Not Given Home Med (Home Med) 1 unit PO [facility] Last Admin: 04/18/18 21:29 Dose: 1 unit Dextrose (Dextrose 5% In Water 1000 Ml) 1,000 mls @ 0 mls/hr IV .Q0M PRN; Protocol PRN Reason: Hypoglycemia Protocol Piperacillin Sod/Tazobactam Sod (Zosyn 3.375 In Ns 100ml) 100 mls @ 25 mls/hr IVPB Q8 [facility]; Protocol Stop: 04/23/18 11:16 Last Admin: 04/19/18 05:14 Dose: 25 mls/hr Iron Sucrose 200 mg/ Sodium (Chloride) 110 mls @ 110 mls/hr IVPB DAILY [facility] Stop: 04/20/18 11:31 Last Admin: 04/18/18 09:24 Dose: 110 mls/hr Insulin Human Lispro (Humalog Low) 0 units SC [facility]; Protocol Last Admin: 04/19/18 07:34 Dose: Not Given Celecoxib [Celebrex] (200 Mg (Home Med)) 200 mg PO DAILY PRN PRN Reason: Pain, moderate (4-7) Ondansetron HCl (Zofran Inj) 4 mg IVP Q6H PRN PRN Reason: Nausea/Vomiting - Labs Labs: 04/19/18 06:00 04/19/18 06:00 PT 15.7 SECONDS (9.4-12.5) H 04/18/18 06:25 INR 1.36 04/18/18 06:25 APTT 26.4 Seconds (25.1-36.5) 04/18/18 06:25 - Additional Findings Additional findings: - Constitutional Appears: Well, No Acute Distress - Head Exam Head Exam: ATRAUMATIC, NORMOCEPHALIC - Eye Exam Eye Exam: EOMI, Normal appearance, PERRL - ENT Exam ENT Exam: Mucous Membranes Moist - Neck Exam Neck Exam: Full ROM, Normal Inspection. absent: Lymphadenopathy - Cardiovascular Exam Cardiovascular Exam: REGULAR RHYTHM, +S1, +S2. absent: Murmur - GI/Abdominal Exam GI & Abdominal Exam: Soft, Normal Bowel Sounds. absent: Guarding, Rigid, Tenderness, Mass, Organomegaly - Extremities Exam Extremities Exam: Full ROM, Normal Capillary Refill, Normal Inspection. absent: Joint Swelling, Pedal Edema - Neurological Exam Neurological Exam: Alert, Awake, Oriented x3 - Psychiatric Exam Psychiatric exam: Normal Affect, Normal Mood - Skin Skin Exam: Dry, Intact, Normal Color, Warm Assessment and Plan - Assessment and Plan (Free Text) Assessment: Patient is a 67 year old with past medical history HTN, GERD, DM2, lumbar disc herniation and LLE sciatica, cervical discectomy, cervical radiculopathy admitted for syncope, found to have 7 cm LLQ complex mass on CT abd pelvis. Plan: - afebrile, no leukocytosis, negative blood cultures - vaginal US 04/16/17: unremarkable, ovaries not identified - follow up IR biopsy results - further management per primary - further recs per surgical attending Dr. Jamie Baltazar PGY-1
--- NOTE | 2018-04-19 11:40 | PN ---
DATE: 04/19/2018 SUBJECTIVE: The patient is lying in bed, comfortable. She had a CT-guided biopsy of a left lower quadrant mass. She denies any nausea, vomiting, fevers, or chills. PHYSICAL EXAMINATION: VITAL SIGNS: Temperature of 98.4, blood pressure 126/67, heart rate 62. HEENT: Sclerae to be white. Conjunctivae pale. NECK: Supple. CHEST: Lungs clear. HEART: Exam reveals regular rate and rhythm. ABDOMEN: Soft, nontender. No mass. EXTREMITIES: Show no edema. LABORATORY DATA: White blood cell count 9.9, hemoglobin of 8. Stool for occult blood is negative. Chemistries reveal normal BUN and creatinine. Chloride is 110. IMPRESSION: A 67-year-old female with left lower quadrant pain, found to have a complex mass in her left lower quadrant. We are awaiting biopsy results. She is also anemic. Stool for occult blood is negative. I suspect that the anemia is that of chronic disease. RECOMMENDATIONS: 1. Await biopsy results. The patient will need transfusion of packed red blood cells. She is agreeable to blood transfusion at this time. 2. The patient may need exploratory laparotomy if biopsy results are unrevealing. Derrell Mcbride MD
[2018-04-19 12:03] LABS: BCR-ABL SOURCE NOT GIVEN; P190 BCR-ABL1 NOT DETECTED; P210 BCR-ABL1 NOT DETECTED
--- NOTE | 2018-04-19 14:54 | CP.PCM.APN ---
Subjective - Date & Time of Evaluation Date of Evaluation: 04/19/18 Time of Evaluation: 10:30 - Subjective Subjective: Pt. seen and examined at bedside, noted to be resting comfortabley, denied abdominal pain, nausea, or vomiting, is s/p ct guided mass biopsy. Review of Systems - Constitutional Constitutional: Headache, Night Sweats - EENT Eyes: absent: As Per HPI, Blind Spots, Blurred Vision, Change in Vision, Decreased Night Vision, Diplopia, Discharge, Dry Eye, Exophthalmos, Floaters, Irritation, Itchy Eyes, Loss of Peripheral Vision, Pain, Photophobia, Requires Corrective Lenses, Sees Flashes, Spots in Vision, Tunnel Vision, Other Visual Disturbances, Loss of Vision, Other Ears: absent: As Per HPI, Decreased Hearing, Ear Discharge, Ear Pain, Tinnitus, Abnormal Hearing, Disequilibrium, Dizziness, Other Nose/Mouth/Throat: absent: As Per HPI, Epistaxis, Nasal Congestion, Nasal Discharge, Nasal Obstruction, Nasal Trauma, Nose Pain, Post Nasal Drip, Sinus Pain, Sinus Pressure, Bleeding Gums, Change in Voice, Dental Pain, Dry Mouth, Dysphagia, Halitosis, Hoarsness, Lip Swelling, Mouth Lesions, Mouth Pain, Odynophagia, Sore Throat, Throat Swelling, Tongue Swelling, Facial Pain, Neck Pain, Neck Mass, Other - Breasts Breasts: absent: As Per HPI, Change in Shape, Mass, Pain, Nipple Discharge, Nipple Inversion, Skin Changes, Swelling, Other - Cardiovascular Cardiovascular: absent: As Per HPI, Acrocyanosis, Chest Pain, Chest Pain at Rest, Chest Pain with Activity, Claudication, Diaphoresis, Dyspnea, Dyspnea on Exertion, Edema, Irregular Heart Rhythm, Pain Radiating to Arm/Neck/Jaw, Leg Edema, Leg Ulcers, Lightheadedness, Orthopnea, Palpitations, Paroxysmal Nocturnal Dyspnea, Pedal Edema, Radiating Pain, Rapid Heart Rate, Slow Heart Rate, Syncope, Other - Respiratory Respiratory: absent: As Per HPI, Cough, Dyspnea, Hemoptysis, Dyspnea on Exertion, Wheezing, Snoring, Stridor, Pain on Inspiration, Chest Congestion, Excessive Mucous Production, Change in Mucous Color, Pain with Coughing, Other - Gastrointestinal Gastrointestinal: Abdominal Pain - Genitourinary Genitourinary: absent: As Per HPI, Change in Urinary Stream, Difficulty Urinating, Dysuria, Flank Pain, Hematuria, Pyuria, Nocturia, Urinary Incontinence, Urinary Frequency, Urinary Hesitance, Urinary Urgency, Voiding Freq/Small Amts, Freq UTI, Hx Renal/Bladder Calculi, Hx /Renal Surgery, Bladder Distension, Other - Reproductive: Female Reproductive:Female: absent: As Per HPI, Amenorrhea, Amenorrhea/ Control, Currently Menstual, Cycle <21 Days, Cycle >35 Days, Cycle Variable, Menses 1-7 Days, Menses >/= 8 Days, Menses Variable, Cycle > 4 Weeks Between, No Menses for 6 Months, Heavy Menses, Light Menses, Normal Menses, Spotting Between Cycles, S/P Hysterectomy, Menopausal, Post Menopausal, Premenarche, Abnormal Vaginal Bleeding, Dysmenorrhea, Dyspareunia, Genital Lesions, Genital Pruritis, Pelvic Pain, Prolapse Symptoms, Sexual Dysfunction, Vaginal Discharge, Vaginal Dryness, Vaginal Odor, Vaginal Pruritis, Other - Menstruation Menstruation: absent: As Per HPI, Amenorrhea, Amenorrhea/ Control, Currently Menstual, Cycle <21 Days, Cycle >35 Days, Cycle Variable, Menses 1-7 Days, Menses >/= 8 Days, Menses Variable, Cycle > 4 Weeks Between, No Menses for 6 Months, Heavy Menses, Light Menses, Normal Menses, Spotting Between Cycles, S/P Hysterectomy, Menopausal, Post Menopausal, Premenarche, Abnormal Vaginal Bleeding, Dysmenorrhea, Other - Musculoskeletal Musculoskeletal: absent: As Per HPI, Abnormal Gait, Arthralgias, Atrophy, Back Pain, Deformity, Joint Swelling, Limited Range of Motion, Loss of Height, Muscle Cramps, Muscle Weakness, Myalgias, Neck Pain, Numbness, Radiating Pain into Limb, Stiffness, Tingling, Other - Integumentary Integumentary: absent: As Per HPI, Acne, Alopecia, Bleeding Lesions, Change in Hair, Change in Nails, Change in Pigmentation, Changing Lesions, Dry Skin, Erythema, Furuncle, Hirsutism, Lesions, New Lesions, Non-Healing Lesions, Photosensitivity, Pruritus, Rash, Skin Pain, Skin Ulcer, Sores, Striae, Swelling, Unusual Bruising, Wounds, Jaundice, Other - Neurological Neurological: absent: As Per HPI, Abnormal Gait, Abnormal Hearing, Abnormal Movements, Abnormal Speech, Behavioral Changes, Burning Sensations, Confusion, Convulsions, Disequilibrium, Dizziness, Numbness, Focal Weakness, Frequent Falls, Headaches, Lack of Coordination, Loss of Vision, Memory Loss, Paresthesias, Radicular Pain, Restless Legs, Sensory Deficit, Syncope, Tingling, Tremor, Vertigo, Weakness, Other Visual Disturbances, Other - Endocrine Endocrine: absent: As Per HPI, Change in Body Appearance, Change in Libido, Cold Intolorance, Deepening of Voice, Excessive Sweating, Fatigue, Flushing, Heat Intolorance, Increase in Ring/Shoe/Hat Size, Palpitations, Polydipsia, Polyphagia, Polyuria, Other - Hematologic/Lymphatic Hematologic: Other Additional comments: anemic, Hgb 8.0, receiving 2 units of PRBCs. Objective - Vital Signs/Intake and Output Vital Signs (last 24 hours): Temp Pulse Resp BP Pulse Ox 98.6 F 58 L 17 114/75 96 04/19/18 14:30 04/19/18 14:30 04/19/18 14:30 04/19/18 14:30 04/19/18 08:30 Intake and Output: 04/19/18 04/19/18 06:59 18:59 Intake Total 420 Balance 420 - Medications Medications: Current Medications Acetaminophen (Tylenol 325mg Tab) 650 mg PO Q6H PRN PRN Reason: Pain, Mild (1-3) Last Admin: 04/18/18 21:32 Dose: 650 mg Dextrose (Dextrose 50% Inj) 0 ml IV STAT PRN; Protocol PRN Reason: Hypoglycemia Protocol Duloxetine HCl (Cymbalta) 30 mg PO HS [facility] Last Admin: 04/18/18 21:29 Dose: 30 mg Famotidine (Pepcid) 20 mg PO 1000,2200 [facility] Last Admin: 04/19/18 10:34 Dose: 20 mg Furosemide (Lasix) 40 mg IVP ONCE ONE Stop: 04/19/18 15:01 Gabapentin (Neurontin) 300 mg PO DAILY [facility]; Protocol Last Admin: 04/19/18 10:31 Dose: Not Given Heparin Sodium (Porcine) (Heparin) 5,000 units SC Q12 [facility]; Protocol Last Admin: 04/19/18 10:34 Dose: 5,000 units Home Med (Home Med) 1 unit PO HS [facility] Last Admin: 04/18/18 21:29 Dose: 1 unit Dextrose (Dextrose 5% In Water 1000 Ml) 1,000 mls @ 0 mls/hr IV .Q0M PRN; Protocol PRN Reason: Hypoglycemia Protocol Piperacillin Sod/Tazobactam Sod (Zosyn 3.375 In Ns 100ml) 100 mls @ 25 mls/hr IVPB Q8 [facility]; Protocol Stop: 04/23/18 11:16 Last Admin: 04/19/18 14:12 Dose: Not Given Iron Sucrose 200 mg/ Sodium (Chloride) 110 mls @ 110 mls/hr IVPB DAILY [facility] Stop: 04/20/18 11:31 Last Admin: 04/19/18 10:35 Dose: 110 mls/hr Insulin Human Lispro (Humalog Low) 0 units SC ACHS [facility]; Protocol Last Admin: 04/19/18 11:58 Dose: Not Given Celecoxib [Celebrex] (200 Mg (Home Med)) 200 mg PO DAILY PRN PRN Reason: Pain, moderate (4-7) Ondansetron HCl (Zofran Inj) 4 mg IVP Q6H PRN PRN Reason: Nausea/Vomiting - Labs Labs: 04/19/18 06:00 04/19/18 06:00 PT 15.7 SECONDS (9.4-12.5) H 04/18/18 06:25 INR 1.36 04/18/18 06:25 APTT 26.4 Seconds (25.1-36.5) 04/18/18 06:25 - Constitutional Appears: Well, Non-toxic - Head Exam Head Exam: NORMOCEPHALIC - Eye Exam Eye Exam: Normal appearance - Neck Exam Neck Exam: Full ROM - Respiratory Exam Respiratory Exam: Clear to Ausculation Bilateral - Cardiovascular Exam Cardiovascular Exam: REGULAR RHYTHM, +S1, +S2 - GI/Abdominal Exam GI & Abdominal Exam: Soft, Normal Bowel Sounds - Rectal Exam Rectal Exam: Deferred - Exam Exam: absent: Circumcision, NORMAL INSPECTION, Scrotal Swelling, Testicular Tenderness, Uretheral Discharge, Testicular Vertical Lie, Bladder Distension External exam: absent: Ecchymosis, Erythema, Lacerations, Lesions, NORMAL EXTE RNAL EXAM, Swelling Speculum exam: absent: Cervical Discharge, Erythema, Foreign Body, Laceration, NORMAL SPECULUM EXAM, Tissue, Vaginal Bleeding, Vaginal Discharge Bimanual exam: absent: Adenexal Mass, Adnexal, Cervical Motion Tendernes, NORMAL BIMANUAL EXAM, Uterine Enlargement, Uterine Tenderness - Extremities Exam Extremities Exam: absent: Calf Tenderness, Full ROM, Joint Swelling, Normal Capillary Refill, Normal Inspection, Pedal Edema, Tenderness - Back Exam Back Exam: Full ROM, NORMAL INSPECTION - Neurological Exam Neurological Exam: Alert, Normal Gait, Oriented x3 - Skin Skin Exam: Dry, Intact, Normal Color, Warm Assessment and Plan - Assessment and Plan (Free Text) Assessment: Impressions Biopsy CT 04/18/18 09:05 IMPRESSION: 1. CT-guided left pelvis biopsy as described above. 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 Assessment/ Plan: 67 year old female admitted s/p syncopal episode, with decrease appetite along with 12 pounds weight loss in the past 4 weeks, found to be anemic, with complaints of left lower quad pain, with CT revealed necrotic mass in LLQ, measuring 7 cm. Plan: 1. Syncope Most likely not cardiac in origin per cardiology, work up neg. 2. Leukocytosis -iMproved, blood culture neg so far, trend WBc. 3. LLq Mass - s/p CT guided mass biopsy with above mentioned results. For Diagnostic exploratory Laparotomy on Sunday, 04/22, with Dr. Ayala. 4. LLq pain likely secondary to diverticulitis/ inflammation - cont IV zosyn, followed by GI, keep NPO , maintain IVF until diet resumed. 5. Anemia, likely secondary to Iron deficient anemia vs. mass. Currently receiving IV Iron , patient now agrees to transfusion of prbcs, 2 units today. -Follow h/h Monitor Cbc, trend WBC. Will continue to monitor clinical status and follow closely. For OR Sunday, planned exlap and washout, final pathology results from llq mass pending.
--- NOTE | 2018-04-19 16:31 | CP.PCM.PN ---
Subjective - Date & Time of Evaluation Date of Evaluation: 04/19/18 Time of Evaluation: 15:50 - Subjective Subjective: Comfortable in bed, no fevers, not in distress, still with some abdominal discomfort. Objective - Vital Signs/Intake and Output Vital Signs (last 24 hours): Temp Pulse Resp BP Pulse Ox 98.6 F 58 L 17 114/75 96 04/19/18 14:32 04/19/18 14:32 04/19/18 14:32 04/19/18 14:32 04/19/18 08:30 Intake and Output: 04/19/18 04/19/18 06:59 18:59 Intake Total 420 Balance 420 - Medications Medications: Current Medications Acetaminophen (Tylenol 325mg Tab) 650 mg PO Q6H PRN PRN Reason: Pain, Mild (1-3) Last Admin: 04/18/18 21:32 Dose: 650 mg Dextrose (Dextrose 50% Inj) 0 ml IV STAT PRN; Protocol PRN Reason: Hypoglycemia Protocol Duloxetine HCl (Cymbalta) 30 mg PO HS [facility] Last Admin: 04/18/18 21:29 Dose: 30 mg Famotidine (Pepcid) 20 mg PO 1000,2200 [facility] Last Admin: 04/19/18 10:34 Dose: 20 mg Gabapentin (Neurontin) 300 mg PO DAILY [facility]; Protocol Last Admin: 04/19/18 10:31 Dose: Not Given Heparin Sodium (Porcine) (Heparin) 5,000 units SC Q12 [facility]; Protocol Last Admin: 04/19/18 10:34 Dose: 5,000 units Home Med (Home Med) 1 unit PO HS [facility] Last Admin: 04/18/18 21:29 Dose: 1 unit Dextrose (Dextrose 5% In Water 1000 Ml) 1,000 mls @ 0 mls/hr IV .Q0M PRN; Protocol PRN Reason: Hypoglycemia Protocol Piperacillin Sod/Tazobactam Sod (Zosyn 3.375 In Ns 100ml) 100 mls @ 25 mls/hr IVPB Q8 [facility]; Protocol Stop: 04/23/18 11:16 Last Admin: 04/19/18 14:12 Dose: Not Given Iron Sucrose 200 mg/ Sodium (Chloride) 110 mls @ 110 mls/hr IVPB DAILY [facility] Stop: 04/20/18 11:31 Last Admin: 04/19/18 10:35 Dose: 110 mls/hr Insulin Human Lispro (Humalog Low) 0 units SC ACHS [facility]; Protocol Last Admin: 04/19/18 11:58 Dose: Not Given Celecoxib [Celebrex] (200 Mg (Home Med)) 200 mg PO DAILY PRN PRN Reason: Pain, moderate (4-7) Ondansetron HCl (Zofran Inj) 4 mg IVP Q6H PRN PRN Reason: Nausea/Vomiting - Labs Labs: 04/19/18 06:00 04/19/18 06:00 PT 15.7 SECONDS (9.4-12.5) H 04/18/18 06:25 INR 1.36 04/18/18 06:25 APTT 26.4 Seconds (25.1-36.5) 04/18/18 06:25 - Constitutional Appears: Chronically Ill - Head Exam Head Exam: NORMAL INSPECTION - Respiratory Exam Respiratory Exam: Decreased Breath Sounds - Cardiovascular Exam Cardiovascular Exam: +S1, +S2 - GI/Abdominal Exam GI & Abdominal Exam: Soft. absent: Tenderness Assessment and Plan - Assessment and Plan (Free Text) Plan: Assessment left lower quadrant necrotic mass R/O malignancy or infection S/P IR-guided biopsy HTN GERD history of lumbar disc herniation Plan continue Zosyn pending cultures from the biopsy and follow up pathology report as well will continue to monitor clinically
--- NOTE | 2018-04-19 16:53 | CP.PCM.PCO ---
Physician Communication Note - Physician Communication Note Physician Communication Note: Seen w Dr. Ayala: will plan for Diagnostic laparoscopy on Sunday
[2018-04-19] MEDS: PRAVACHOL 20 MG PO SCH (22:30)
[2018-04-20] MEDS: Piperacillin/Tazobact 3.375 gm 100 ML IVPB SCH ×3 (06:15→21:32)
--- NOTE | 2018-04-20 08:27 | CP.PCM.PN ---
Subjective - Date & Time of Evaluation Date of Evaluation: 04/20/18 Time of Evaluation: 08:23 - Subjective Subjective: Surgery Progress note- Dr. Ayala Patient examined at bedside. Patient is s/p LLQ biopsy which she tolerated well. Patient is also tolerating diet and has had bowel movement. Denies fevers, chills, nausea, vomiting. Pathology Pending Objective - Vital Signs/Intake and Output Vital Signs (last 24 hours): Temp Pulse Resp BP Pulse Ox 97.6 F 54 L 18 138/85 95 04/20/18 06:00 04/20/18 06:00 04/20/18 06:00 04/20/18 06:00 04/20/18 06:00 Intake and Output: 04/20/18 04/20/18 06:59 18:59 Intake Total 2215 Balance 2215 - Medications Medications: Current Medications Acetaminophen (Tylenol 325mg Tab) 650 mg PO Q6H PRN PRN Reason: Pain, Mild (1-3) Last Admin: 04/20/18 00:03 Dose: 650 mg Dextrose (Dextrose 50% Inj) 0 ml IV STAT PRN; Protocol PRN Reason: Hypoglycemia Protocol Duloxetine HCl (Cymbalta) 30 mg PO HS [facility] Last Admin: 04/19/18 22:30 Dose: 30 mg Famotidine (Pepcid) 20 mg PO 1000,2200 [facility] Last Admin: 04/19/18 22:31 Dose: 20 mg Gabapentin (Neurontin) 300 mg PO DAILY [facility]; Protocol Last Admin: 04/19/18 10:31 Dose: Not Given Heparin Sodium (Porcine) (Heparin) 5,000 units SC Q12 [facility]; Protocol Last Admin: 04/19/18 22:30 Dose: 5,000 units Home Med (Home Med) 1 unit PO HS [facility] Last Admin: 04/19/18 22:30 Dose: 1 unit Dextrose (Dextrose 5% In Water 1000 Ml) 1,000 mls @ 0 mls/hr IV .Q0M PRN; Protocol PRN Reason: Hypoglycemia Protocol Piperacillin Sod/Tazobactam Sod (Zosyn 3.375 In Ns 100ml) 100 mls @ 25 mls/hr IVPB Q8 [facility]; Protocol Stop: 04/23/18 11:16 Last Admin: 04/20/18 06:15 Dose: 25 mls/hr Iron Sucrose 200 mg/ Sodium (Chloride) 110 mls @ 110 mls/hr IVPB DAILY [facility] Stop: 04/20/18 11:31 Last Admin: 04/19/18 10:35 Dose: 110 mls/hr Insulin Human Lispro (Humalog Low) 0 units SC ACHS [facility]; Protocol Last Admin: 04/19/18 22:31 Dose: Not Given Celecoxib [Celebrex] (200 Mg (Home Med)) 200 mg PO DAILY PRN PRN Reason: Pain, moderate (4-7) Ondansetron HCl (Zofran Inj) 4 mg IVP Q6H PRN PRN Reason: Nausea/Vomiting - Labs Labs: 04/19/18 06:00 04/19/18 06:00 PT 15.7 SECONDS (9.4-12.5) H 04/18/18 06:25 INR 1.36 04/18/18 06:25 APTT 26.4 Seconds (25.1-36.5) 04/18/18 06:25 - Constitutional Appears: Non-toxic, No Acute Distress - Head Exam Head Exam: ATRAUMATIC - Eye Exam Eye Exam: EOMI. absent: Scleral icterus - ENT Exam ENT Exam: Mucous Membranes Moist - Respiratory Exam Respiratory Exam: absent: Accessory Muscle Use, Respiratory Distress - GI/Abdominal Exam GI & Abdominal Exam: Soft, Tenderness (some tenderness in LLQ). absent: Di stended, Firm, Guarding, Rigid - Neurological Exam Neurological Exam: Alert, Awake, Oriented x3 - Psychiatric Exam Psychiatric exam: Normal Affect - Skin Skin Exam: Intact, Warm Assessment and Plan - Assessment and Plan (Free Text) Assessment: 67F pmhx HTN, GERD, DM2, lumbar disc herniation and LLE sciatica, cervical discectomy, cervical radiculopathy admitted for syncope, found to have 7 cm LLQ complex mass on CT abd pelvis s/p Biopsy by IR, pathology pending afebrile, leukocytosis resolved after Abx, negative blood cultures Plan: - follow up IR biopsy results - after further discussion w/ Patient and Dr. White PMD; will wait for biopsy results prior to surgical intervention - further management per primary - further recs per surgical attending Dr. Jamie Mai PGY2
[2018-04-20 08:34] LABS: BASO # 0.03 K/mm3 (0.0-2.0); BASO % 0.3 % (0.0-3.0); EOS # 0.3 (0.0-0.7); EOS % 3.3 % (1.5-5.0); GRAN # 5.99 (1.4-6.5); GRAN % 58.1 % (50.0-68.0); HEMOGLOBIN 10.6 g/dL (12.0-16.0); LYMPH # 3.2 (1.2-3.4); LYMPH % 31.1 % (22.0-35.0); MEAN CELL VOLUME 86.6 fl (80.0-105.0); MEAN CORPUSCULAR HEMOGLOBIN 27.3 pg (25.0-35.0); MEAN CORPUSCULAR HGB CONC 31.5 g/dl (31.0-37.0); MEAN PLATELET VOLUME 8.6 fl (7.0-11.0); MONO # 0.7 (0.1-0.6); MONO % 7.2 % (1.0-6.0); RBC 3.88 10^6/uL (3.5-6.1); RED CELL DISTRIBUTION WIDTH 15.6 % (11.5-14.5); WHITE BLOOD COUNT 10.3 10^3/uL (4.5-11.0)
[2018-04-20] MEDS: Insulin Lispro (humaLOG) LOW Coverage SC SCH ×4 (09:00→22:27)
[2018-04-20 09:06] LABS: ALB/GLOB RATIO 0.9 (1.1-1.8); ALBUMIN 3.3 g/dL (3.0-4.8); ALT/SGPT 19 U/L (7-56); AST/SGOT 32 U/L (14-36); BLOOD UREA NITROGEN 9 mg/dL (7-21); CALCIUM 9.3 mg/dL (8.4-10.5); GFR NON-AFRICAN AMERICAN 55
--- NOTE | 2018-04-20 12:51 | PN ---
DATE: 04/20/2018 SUBJECTIVE: The patient is lying in bed comfortable. Her left lower quadrant abdominal pain has improved. She is tolerating a diet. She denies any nausea, vomiting. She denies any fevers or chills. PHYSICAL EXAMINATION: VITAL SIGNS: Reveal temperature of 97.6, blood pressure 138/85, heart rate 54. HEENT: Reveal sclerae to be white. Conjunctivae pink. NECK: Supple. CHEST: Lungs are clear. HEART: Exam reveals regular rate and rhythm. ABDOMEN: Soft, nontender. No mass. EXTREMITIES: Show no edema. LABORATORY DATA: Reveal white blood cell count 10.3, hemoglobin 10.6. The patient received 2 units of packed red blood cells. Stool for occult blood is negative. Chemistries reveal normal electrolytes. IMPRESSION: A 67-year-old female with a left lower quadrant complex mass, rule out chronic abscess versus malignancy versus a complex cyst from endometriosis. RECOMMENDATIONS: 1. Await biopsy results. 2. The patient is tentatively scheduled for diagnostic laparoscopy on Sunday. Derrell Mcbride MD
--- NOTE | 2018-04-20 15:03 | CP.PCM.PN ---
Subjective - Date & Time of Evaluation Date of Evaluation: 04/20/18 Time of Evaluation: 10:50 - Subjective Subjective: Comfortable, no fevers, abdominal pain is better, no nausea. Objective - Vital Signs/Intake and Output Vital Signs (last 24 hours): Temp Pulse Resp BP Pulse Ox 98.7 F 57 L 17 109/62 96 04/19/18 16:24 04/19/18 16:24 04/19/18 16:24 04/19/18 16:24 04/19/18 16:24 Intake and Output: 04/19/18 04/19/18 06:59 18:59 Intake Total 420 Balance 420 - Medications Medications: Current Medications Acetaminophen (Tylenol 325mg Tab) 650 mg PO Q6H PRN PRN Reason: Pain, Mild (1-3) Last Admin: 04/18/18 21:32 Dose: 650 mg Dextrose (Dextrose 50% Inj) 0 ml IV STAT PRN; Protocol PRN Reason: Hypoglycemia Protocol Duloxetine HCl (Cymbalta) 30 mg PO HS [facility] Last Admin: 04/18/18 21:29 Dose: 30 mg Famotidine (Pepcid) 20 mg PO 1000,2200 [facility] Last Admin: 04/19/18 10:34 Dose: 20 mg Gabapentin (Neurontin) 300 mg PO DAILY [facility]; Protocol Last Admin: 04/19/18 10:31 Dose: Not Given Heparin Sodium (Porcine) (Heparin) 5,000 units SC Q12 [facility]; Protocol Last Admin: 04/19/18 10:34 Dose: 5,000 units Home Med (Home Med) 1 unit PO HS [facility] Last Admin: 04/18/18 21:29 Dose: 1 unit Dextrose (Dextrose 5% In Water 1000 Ml) 1,000 mls @ 0 mls/hr IV .Q0M PRN; Protocol PRN Reason: Hypoglycemia Protocol Piperacillin Sod/Tazobactam Sod (Zosyn 3.375 In Ns 100ml) 100 mls @ 25 mls/hr IVPB Q8 [facility]; Protocol Stop: 04/23/18 11:16 Last Admin: 04/19/18 14:12 Dose: Not Given Iron Sucrose 200 mg/ Sodium (Chloride) 110 mls @ 110 mls/hr IVPB DAILY [facility] Stop: 04/20/18 11:31 Last Admin: 04/19/18 10:35 Dose: 110 mls/hr Insulin Human Lispro (Humalog Low) 0 units SC ACHS [facility]; Protocol Last Admin: 04/19/18 16:29 Dose: Not Given Celecoxib [Celebrex] (200 Mg (Home Med)) 200 mg PO DAILY PRN PRN Reason: Pain, moderate (4-7) Ondansetron HCl (Zofran Inj) 4 mg IVP Q6H PRN PRN Reason: Nausea/Vomiting - Labs Labs: 04/19/18 06:00 04/19/18 06:00 PT 15.7 SECONDS (9.4-12.5) H 04/18/18 06:25 INR 1.36 04/18/18 06:25 APTT 26.4 Seconds (25.1-36.5) 04/18/18 06:25 - Constitutional Appears: Chronically Ill - Head Exam Head Exam: NORMAL INSPECTION - Respiratory Exam Respiratory Exam: Decreased Breath Sounds - Cardiovascular Exam Cardiovascular Exam: +S1, +S2 - GI/Abdominal Exam GI & Abdominal Exam: Soft. absent: Tenderness Assessment and Plan - Assessment and Plan (Free Text) Plan: Assessment left lower quadrant necrotic mass R/O malignancy or infection S/P IR-guided biopsy HTN GERD history of lumbar disc herniation Plan continue Zosyn pending cultures from the biopsy and follow up pathology report as well will continue to monitor clinically
--- NOTE | 2018-04-20 16:43 | PN ---
DATE: 04/20/2018 SUBJECTIVE: The patient has no complaints of any chest pain. No shortness of breath. No headaches or dizziness. PHYSICAL EXAMINATION VITAL SIGNS: Temperature is 97.6, pulse is 54, blood pressure 138/85, respirations 18. GENERAL: The patient is lying in bed, flat, comfortable. HEENT: No oral lesion. Anicteric sclerae. Moist mucosa. NECK: No JVD, adenopathy, or thyromegaly. CARDIOVASCULAR: S1 and S2, regular. No murmurs, rubs, or gallops. LUNGS: Clear to auscultation bilaterally. No wheeze, rales, or rhonchi. ABDOMEN: Bowel sounds are positive, soft, nontender and nondistended. EXTREMITIES: No cyanosis, clubbing or edema. LABORATORY DATA: White count of 10.3, hemoglobin 10.6. Creatinine is 1.0. ASSESSMENT: 1. Left lower quadrant abdominal mass versus abscess. 2. Syncope, resolved. 3. Iron-deficiency anemia. 4. Reactive thrombocytosis, secondary to iron deficiency. 5. Hypertension. 6. Diabetes, type 2. 7. Dyslipidemia. 8. Lumbar disc herniation with radiculopathy. 9. Gastroesophageal reflux disease. PLAN: The patient is currently comfortable. She is currently receiving Cymbalta. She is going to be on heparin for DVT prophylaxis. She is on gabapentin for neuropathy. The patient is on Tylenol as needed. She is on Zosyn for antibiotics. I did speak to the Surgery team, I am waiting for the result of the biopsy that was taken. I think that the patient may have an infection that was causing initial abnormal CT. The white count has improved significantly. I would recommend not undergoing a surgical intervention until the biopsy report returns. I did speak to the Surgery team about this. Lonny Fields MD
[2018-04-20] MEDS: PRAVACHOL 20 MG PO SCH (21:33)
[2018-04-21] MEDS: Piperacillin/Tazobact 3.375 gm 100 ML IVPB SCH ×3 (05:25→22:02)
[2018-04-21] MEDS: Insulin Lispro (humaLOG) LOW Coverage SC SCH ×4 (08:04→22:01)
[2018-04-21 08:31] LABS: BASO # 0.02 K/mm3 (0.0-2.0); BASO % 0.2 % (0.0-3.0); EOS # 0.3 (0.0-0.7); EOS % 2.7 % (1.5-5.0); GRAN # 6.24 (1.4-6.5); GRAN % 63.6 % (50.0-68.0); HEMOGLOBIN 10.1 g/dL (12.0-16.0); LYMPH # 2.6 (1.2-3.4); LYMPH % 26.4 % (22.0-35.0); MEAN CELL VOLUME 87.9 fl (80.0-105.0); MEAN CORPUSCULAR HEMOGLOBIN 26.6 pg (25.0-35.0); MEAN CORPUSCULAR HGB CONC 30.3 g/dl (31.0-37.0); MEAN PLATELET VOLUME 8.5 fl (7.0-11.0); MONO # 0.7 (0.1-0.6); MONO % 7.1 % (1.0-6.0); RBC 3.79 10^6/uL (3.5-6.1); RED CELL DISTRIBUTION WIDTH 16.2 % (11.5-14.5); WHITE BLOOD COUNT 9.8 10^3/uL (4.5-11.0)
[2018-04-21 09:05] LABS: ALB/GLOB RATIO 0.9 (1.1-1.8); ALBUMIN 3.2 g/dL (3.0-4.8); ALT/SGPT 21 U/L (7-56); AST/SGOT 31 U/L (14-36); BLOOD UREA NITROGEN 12 mg/dL (7-21); CALCIUM 9.2 mg/dL (8.4-10.5); GFR NON-AFRICAN AMERICAN 55
--- NOTE | 2018-04-21 20:58 | PN ---
DATE: 04/21/2018 SUBJECTIVE: The patient is 67 years old, seen and examined, lying in bed, does not seem to be in distress. Slight abdominal discomfort, but no rebound, no guarding. PHYSICAL EXAMINATION: VITAL SIGNS: She is afebrile, pulse 54, respirations 18, and blood pressure 163/87. LUNGS: Bilateral fair air flow. No rhonchi or crackle. HEART: S1 and S2 audible. ABDOMEN: Soft, had biopsy done and dressing in place. EXTREMITIES: Bilateral legs no edema. NEUROLOGICAL: She is awake, alert, oriented, and communicative. LABORATORY DATA: WBC is 9.8, hemoglobin 10, hematocrit 33, and platelets 527. Chemistry: Sodium 142, potassium 3.7, chloride 107, CO2 of 29. BUN 10, creatinine 1, and blood sugar 150. Blood cultures and urine cultures are negative. ASSESSMENT: 1. Left lower lung mass, status post CT-guided biopsy. 2. Hypertension. 3. Non-insulin dependent diabetes. 4. Hyperlipidemia. 5. Degenerative disk disease. 6. History of peptic ulcer disease. 7. Status post syncope. 8. Leukocytosis, improved. 9. Chronic anemia. PLAN: The plan is currently the patient is on IV antibiotics. She is on Cymbalta. She has been on DVT prophylaxis. Her blood sugar is being monitored, and she is on Zosyn as per ID recommendation. Today's labs seem to be stable. We will follow up CBC and CMP in a.m. and follow up biopsy report. Kanu Rosales MD
[2018-04-21] MEDS: PRAVACHOL 20 MG PO SCH (22:00)
[2018-04-22] MEDS: Piperacillin/Tazobact 3.375 gm 100 ML IVPB SCH ×3 (05:18→22:05)
--- NOTE | 2018-04-22 05:30 | CP.PCM.PN ---
<Jeanette Aburto - Last Filed: 04/22/18 11:07> Subjective - Date & Time of Evaluation Date of Evaluation: 04/22/18 Time of Evaluation: 07:15 - Subjective Subjective: Pgy3 Medicine progress note for Dr. Fields Patient seen and examined at bedside. No acute events overnight as per nursing. Patient resting comfortably in bed this AM and denied complaints of fever, chills, night sweats, headache, dizziness, chest pain, palpitations, SOB, cough, abd pain, nausea, vomiting, bowel/bladder complaints, pain/swelling in her legs bilaterally. Patient is tolerated diet and is eager to go home. Objective - Vital Signs/Intake and Output Vital Signs (last 24 hours): Temp Pulse Resp BP Pulse Ox 97.9 F 60 18 140/80 94 L 04/21/18 18:57 04/21/18 18:57 04/21/18 18:57 04/21/18 18:57 04/21/18 18:57 Intake and Output: 04/21/18 04/22/18 18:59 06:59 Intake Total 340 4380 Balance 340 4380 - Medications Medications: Current Medications Acetaminophen (Tylenol 325mg Tab) 650 mg PO Q6H PRN PRN Reason: Pain, Mild (1-3) Last Admin: 04/21/18 22:08 Dose: 650 mg Dextrose (Dextrose 50% Inj) 0 ml IV STAT PRN; Protocol PRN Reason: Hypoglycemia Protocol Duloxetine HCl (Cymbalta) 30 mg PO HS [facility] Last Admin: 04/21/18 21:58 Dose: 30 mg Famotidine (Pepcid) 20 mg PO 1000,2200 [facility] Last Admin: 04/21/18 22:01 Dose: 20 mg Gabapentin (Neurontin) 300 mg PO DAILY [facility]; Protocol Last Admin: 04/21/18 10:12 Dose: Not Given Heparin Sodium (Porcine) (Heparin) 5,000 units SC Q12 [facility]; Protocol Last Admin: 04/21/18 21:58 Dose: 5,000 units Home Med (Home Med) 1 unit PO HS [facility] Last Admin: 04/21/18 22:00 Dose: 1 unit Dextrose (Dextrose 5% In Water 1000 Ml) 1,000 mls @ 0 mls/hr IV .Q0M PRN; Protocol PRN Reason: Hypoglycemia Protocol Piperacillin Sod/Tazobactam Sod (Zosyn 3.375 In Ns 100ml) 100 mls @ 25 mls/hr IVPB Q8 [facility]; Protocol Stop: 04/23/18 11:16 Last Admin: 04/22/18 05:18 Dose: 25 mls/hr Insulin Human Lispro (Humalog Low) 0 units SC ACHS [facility]; Protocol Last Admin: 04/21/18 22:01 Dose: Not Given Celecoxib [Celebrex] (200 Mg (Home Med)) 200 mg PO DAILY PRN PRN Reason: Pain, moderate (4-7) Ondansetron HCl (Zofran Inj) 4 mg IVP Q6H PRN PRN Reason: Nausea/Vomiting - Labs Labs: 04/21/18 08:18 04/21/18 08:18 PT 15.7 SECONDS (9.4-12.5) H 04/18/18 06:25 INR 1.36 04/18/18 06:25 APTT 26.4 Seconds (25.1-36.5) 04/18/18 06:25 - Constitutional Appears: Non-toxic, No Acute Distress - Head Exam Head Exam: ATRAUMATIC, NORMAL INSPECTION, NORMOCEPHALIC - Eye Exam Eye Exam: EOMI, Normal appearance, PERRL. absent: Conjunctival injection, Scleral icterus Pupil Exam: NORMAL ACCOMODATION - ENT Exam ENT Exam: Mucous Membranes Moist - Neck Exam Neck Exam: Full ROM, Normal Inspection. absent: Lymphadenopathy - Respiratory Exam Respiratory Exam: Clear to Ausculation Bilateral, NORMAL BREATHING PATTERN. absent: Accessory Muscle Use, Rales, Rhonchi, Wheezes, Respiratory Distress - Cardiovascular Exam Cardiovascular Exam: REGULAR RHYTHM, +S1, +S2 - GI/Abdominal Exam GI & Abdominal Exam: Soft, Normal Bowel Sounds. absent: Distended, Firm, Guarding, Rigid, Tenderness, Organomegaly, Rebound - Rectal Exam Rectal Exam: Deferred - Extremities Exam Extremities Exam: Normal Capillary Refill, Normal Inspection. absent: Pedal Edema, Tenderness - Back Exam Back Exam: NORMAL INSPECTION. absent: rash noted, tenderness - Neurological Exam Neurological Exam: Alert, Awake, CN II-XII Intact, Oriented x3 - Psychiatric Exam Psychiatric exam: Normal Affect, Normal Mood - Skin Skin Exam: Dry, Intact, Normal Color, Warm Assessment and Plan - Assessment and Plan (Free Text) Assessment: 1. LLQ abdominal mass vs abscess 2. Syncope- resolved 3. Iron deficient anemia 4. Thrombocytosis 5. HTN- resolved 6. DM2 7. Hypercholesterolemia 9. Cervical radiculopathy 10. Lumbar disc herniation and radiculopathy 11. LLE sciatica 12. GERD 13. Anxiety Plan: Patient's blood work, vitals, and imaging reviewed. Patient is POD#4 IR biopsy o f LLQ mass- pending path results. High suspicion that mass is an old abscess in light of improvement of leukocytosis and no fevers on antibiotics. Patient on day 7 of Zosyn. Appreciate ID reccs. Patient's syncope has resolved and she has been ambulating around the floors with no complaints. Patient's iron deficient anemia has responded well to being transfused 2U PRBC and 4 days of IV venofer. CBC this morning showed Hgb/Hct 10.3/33.9. Patient's flow cytometry results were reviewed with her in detail. Patient's thrombocytosis slightly improved since admission- likely reactionary secondary to GUILHERME. Will continue to monitor at this time. She is to follow up with Dr. Phyllis jimenez/onc as outpatient after discharge. Patient's blood pressure was slightly elevated in the last 24 hours. Continue to monitor closely off BP meds at this time. Continue accuchecks and RISS low ACHS for patient's history of DM2 and will continue patient's home medication in light of history of HLD. Continue patient's Neurontin and Celebrex at this time for cervical and lumbar radiculopathy. Will continue patient's ho me cymbalta for anxiety at this time. GI and DVT ppx on board. Patient on HHD HALFWAY diet. Patient to continue working with physical therapy. Will continue to monitor patient closely. Patient spoken to in detail regarding hospital course and questions were answered and addressed thoroughly. Discussed with Dr. Donnie Aburto PGY3 <Lonny Fields S - Last Filed: 04/22/18 17:11> Objective - Vital Signs/Intake and Output Vital Signs (last 24 hours): Temp Pulse Resp BP Pulse Ox 97.9 F 55 L 20 152/83 H 95 04/22/18 16:25 04/22/18 16:25 04/22/18 16:25 04/22/18 16:25 04/22/18 16:25 Intake and Output: 04/22/18 04/22/18 06:59 18:59 Intake Total 4500 Output Total 0 Balance 4500 - Medications Medications: Current Medications Acetaminophen (Tylenol 325mg Tab) 650 mg PO Q6H PRN PRN Reason: Pain, Mild (1-3) Last Admin: 04/21/18 22:08 Dose: 650 mg Dextrose (Dextrose 50% Inj) 0 ml IV STAT PRN; Protocol PRN Reason: Hypoglycemia Protocol Duloxetine HCl (Cymbalta) 30 mg PO HS [facility] Last Admin: 04/21/18 21:58 Dose: 30 mg Famotidine (Pepcid) 20 mg PO 1000,2200 [facility] Last Admin: 04/22/18 09:39 Dose: 20 mg Gabapentin (Neurontin) 300 mg PO DAILY [facility]; Protocol Last Admin: 04/22/18 09:38 Dose: Not Given Heparin Sodium (Porcine) (Heparin) 5,000 units SC Q12 [facility]; Protocol Last Admin: 04/22/18 11:50 Dose: Not Given Home Med (Home Med) 1 unit PO HS [facility] Last Admin: 04/21/18 22:00 Dose: 1 unit Dextrose (Dextrose 5% In Water 1000 Ml) 1,000 mls @ 0 mls/hr IV .Q0M PRN; Protocol PRN Reason: Hypoglycemia Protocol Piperacillin Sod/Tazobactam Sod (Zosyn 3.375 In Ns 100ml) 100 mls @ 25 mls/hr IVPB Q8 [facility]; Protocol Stop: 04/23/18 11:16 Last Admin: 04/22/18 13:23 Dose: 25 mls/hr Insulin Human Lispro (Humalog Low) 0 units SC ACHS [facility]; Protocol Last Admin: 04/22/18 16:40 Dose: Not Given Celecoxib [Celebrex] (200 Mg (Home Med)) 200 mg PO DAILY PRN PRN Reason: Pain, moderate (4-7) Ondansetron HCl (Zofran Inj) 4 mg IVP Q6H PRN PRN Reason: Nausea/Vomiting - Labs Labs: 04/22/18 06:00 04/22/18 06:00 PT 15.7 SECONDS (9.4-12.5) H 04/18/18 06:25 INR 1.36 04/18/18 06:25 APTT 26.4 Seconds (25.1-36.5) 04/18/18 06:25 Assessment and Plan - Assessment and Plan (Free Text) Plan: Pt seen and examined by me. I have reviewed the note of the medical technologist blood bank and I agree with it. I have discussed the assessment and plan with the resident. I have reviewed the medications and the last labs. Pt with mass in LLQ and is awaiting for bx results. She is on IV Zosyn. She smith a normal CBC. I spoke to Dr Ayala about the case. Will hold surgery until results of bx. Will most likey need to repeat CT of the Abd/pelvis with contrast. Her anxiety is stable and controlled with Cymbalata. Pt is on Clelebrex for radiculopathy. Flow cytometry is reviewed. Pt's questions answered and she understands the need to stay in the hospital.
[2018-04-22 06:33] LABS: BASO # 0.02 K/mm3 (0.0-2.0); BASO % 0.2 % (0.0-3.0); EOS # 0.3 (0.0-0.7); EOS % 3.1 % (1.5-5.0); GRAN # 5.98 (1.4-6.5); GRAN % 61.5 % (50.0-68.0); HEMOGLOBIN 10.3 g/dL (12.0-16.0); LYMPH # 2.7 (1.2-3.4); LYMPH % 27.6 % (22.0-35.0); MEAN CELL VOLUME 88.5 fl (80.0-105.0); MEAN CORPUSCULAR HEMOGLOBIN 26.9 pg (25.0-35.0); MEAN CORPUSCULAR HGB CONC 30.4 g/dl (31.0-37.0); MEAN PLATELET VOLUME 8.9 fl (7.0-11.0); MONO # 0.7 (0.1-0.6); MONO % 7.6 % (1.0-6.0); RBC 3.83 10^6/uL (3.5-6.1); RED CELL DISTRIBUTION WIDTH 16.7 % (11.5-14.5); WHITE BLOOD COUNT 9.7 10^3/uL (4.5-11.0)
[2018-04-22 06:57] LABS: ALB/GLOB RATIO 0.9 (1.1-1.8); ALBUMIN 3.3 g/dL (3.0-4.8); ALT/SGPT 20 U/L (7-56); AST/SGOT 46 U/L (14-36); BLOOD UREA NITROGEN 13 mg/dL (7-21); CALCIUM 9.3 mg/dL (8.4-10.5); GFR NON-AFRICAN AMERICAN 55
[2018-04-22] MEDS: Insulin Lispro (humaLOG) LOW Coverage SC SCH ×3 (08:06→16:40)
[2018-04-22 09:15] VITALS: PULSE 55; RESP 20
--- NOTE | 2018-04-22 10:10 | CP.PCM.PN ---
Subjective - Date & Time of Evaluation Date of Evaluation: 04/22/18 Time of Evaluation: 07:30 - Subjective Subjective: Surgery progress note- Dr. Ayala Patient seen and examined at bedside. She reports no complaints. Having regular BM and tolerating her diet. She denied abd pain, N/V/D. Objective - Vital Signs/Intake and Output Vital Signs (last 24 hours): Temp Pulse Resp BP Pulse Ox 97.9 F 55 L 20 145/93 H 96 04/22/18 09:15 04/22/18 09:15 04/22/18 09:15 04/22/18 09:15 04/22/18 09:15 Intake and Output: 04/22/18 04/22/18 06:59 18:59 Intake Total 4500 Output Total 0 Balance 4500 - Medications Medications: Current Medications Acetaminophen (Tylenol 325mg Tab) 650 mg PO Q6H PRN PRN Reason: Pain, Mild (1-3) Last Admin: 04/21/18 22:08 Dose: 650 mg Dextrose (Dextrose 50% Inj) 0 ml IV STAT PRN; Protocol PRN Reason: Hypoglycemia Protocol Duloxetine HCl (Cymbalta) 30 mg PO HS [facility] Last Admin: 04/21/18 21:58 Dose: 30 mg Famotidine (Pepcid) 20 mg PO 1000,2200 [facility] Last Admin: 04/22/18 09:39 Dose: 20 mg Gabapentin (Neurontin) 300 mg PO DAILY [facility]; Protocol Last Admin: 04/22/18 09:38 Dose: Not Given Heparin Sodium (Porcine) (Heparin) 5,000 units SC Q12 [facility]; Protocol Last Admin: 04/21/18 21:58 Dose: 5,000 units Home Med (Home Med) 1 unit PO HS [facility] Last Admin: 04/21/18 22:00 Dose: 1 unit Dextrose (Dextrose 5% In Water 1000 Ml) 1,000 mls @ 0 mls/hr IV .Q0M PRN; Protocol PRN Reason: Hypoglycemia Protocol Piperacillin Sod/Tazobactam Sod (Zosyn 3.375 In Ns 100ml) 100 mls @ 25 mls/hr IVPB Q8 [facility]; Protocol Stop: 04/23/18 11:16 Last Admin: 04/22/18 05:18 Dose: 25 mls/hr Insulin Human Lispro (Humalog Low) 0 units SC ACHS [facility]; Protocol Last Admin: 04/22/18 08:06 Dose: Not Given Celecoxib [Celebrex] (200 Mg (Home Med)) 200 mg PO DAILY PRN PRN Reason: Pain, moderate (4-7) Ondansetron HCl (Zofran Inj) 4 mg IVP Q6H PRN PRN Reason: Nausea/Vomiting - Labs Labs: 04/22/18 06:00 04/22/18 06:00 PT 15.7 SECONDS (9.4-12.5) H 04/18/18 06:25 INR 1.36 04/18/18 06:25 APTT 26.4 Seconds (25.1-36.5) 04/18/18 06:25 - Additional Findings Additional findings: - Constitutional Appears: Well, No Acute Distress - Head Exam Head Exam: ATRAUMATIC, NORMAL INSPECTION, NORMOCEPHALIC - Eye Exam Eye Exam: EOMI, Normal appearance, PERRL Pupil Exam: NORMAL ACCOMODATION, PERRL - ENT Exam ENT Exam: Mucous Membranes Moist, Normal Exam - Neck Exam Neck Exam: Full ROM, Normal Inspection. absent: Lymphadenopathy - Cardiovascular Exam Cardiovascular Exam: REGULAR RHYTHM, +S1, +S2. absent: Murmur - GI/Abdominal Exam GI & Abdominal Exam: Soft, Normal Bowel Sounds. absent: Guarding, Rigid, Tenderness, Mass, Organomegaly - Extremities Exam Extremities Exam: Full ROM, Normal Capillary Refill, Normal Inspection. absent: Joint Swelling, Pedal Edema - Neurological Exam Neurological Exam: Alert, Awake, Oriented x3 - Psychiatric Exam Psychiatric exam: Normal Affect, Normal Mood - Skin Skin Exam: Dry, Intact, Normal Color, Warm Assessment and Plan - Assessment and Plan (Free Text) Assessment: 67 y/o female admitted for syncope episode. Found to have 7cm LLQ complex mass on CT A/P s/p biopsy by IR, pathology pending Patient asymptomatic, afebrile, no leukocytosis, negative blood Cx Plan: -continue abx/IVF -f/u pathology of LLQ mass biopsy -will continue to follow -further recs as per surgical attending Dr. Jamie Rothman, DO
[2018-04-22] MEDS ORDERED: Barium Sulfate Susp 2.1% w/v, 2.0% w/w 450 mL Bottle PO ONE (11:35)
--- NOTE | 2018-04-22 13:31 | CP.PCM.PN ---
<Chriss aPrrish - Last Filed: 04/22/18 13:57> Subjective - Date & Time of Evaluation Date of Evaluation: 04/22/18 Time of Evaluation: 09:50 - Subjective Subjective: Infectious disease progress note: Pt seen and examined at bedside. No acute events overnight. Pt states that she is doing well. No complaints or pain at this time. 12 Point ROS performed and neg other than stated above. Objective - Vital Signs/Intake and Output Vital Signs (last 24 hours): Temp Pulse Resp BP Pulse Ox 97.9 F 55 L 20 145/93 H 96 04/22/18 09:15 04/22/18 09:15 04/22/18 09:15 04/22/18 09:15 04/22/18 09:15 Intake and Output: 04/22/18 04/22/18 06:59 18:59 Intake Total 4500 Output Total 0 Balance 4500 - Medications Medications: Current Medications Acetaminophen (Tylenol 325mg Tab) 650 mg PO Q6H PRN PRN Reason: Pain, Mild (1-3) Last Admin: 04/21/18 22:08 Dose: 650 mg Dextrose (Dextrose 50% Inj) 0 ml IV STAT PRN; Protocol PRN Reason: Hypoglycemia Protocol Duloxetine HCl (Cymbalta) 30 mg PO HS [facility] Last Admin: 04/21/18 21:58 Dose: 30 mg Famotidine (Pepcid) 20 mg PO 1000,2200 [facility] Last Admin: 04/22/18 09:39 Dose: 20 mg Gabapentin (Neurontin) 300 mg PO DAILY [facility]; Protocol Last Admin: 04/22/18 09:38 Dose: Not Given Heparin Sodium (Porcine) (Heparin) 5,000 units SC Q12 [facility]; Protocol Last Admin: 04/22/18 11:50 Dose: Not Given Home Med (Home Med) 1 unit PO HS [facility] Last Admin: 04/21/18 22:00 Dose: 1 unit Dextrose (Dextrose 5% In Water 1000 Ml) 1,000 mls @ 0 mls/hr IV .Q0M PRN; Protocol PRN Reason: Hypoglycemia Protocol Piperacillin Sod/Tazobactam Sod (Zosyn 3.375 In Ns 100ml) 100 mls @ 25 mls/hr IVPB Q8 [facility]; Protocol Stop: 04/23/18 11:16 Last Admin: 04/22/18 13:23 Dose: 25 mls/hr Insulin Human Lispro (Humalog Low) 0 units SC [facility]; Protocol Last Admin: 04/22/18 11:49 Dose: Not Given Celecoxib [Celebrex] (200 Mg (Home Med)) 200 mg PO DAILY PRN PRN Reason: Pain, moderate (4-7) Ondansetron HCl (Zofran Inj) 4 mg IVP Q6H PRN PRN Reason: Nausea/Vomiting - Labs Labs: 04/22/18 06:00 04/22/18 06:00 PT 15.7 SECONDS (9.4-12.5) H 04/18/18 06:25 INR 1.36 04/18/18 06:25 APTT 26.4 Seconds (25.1-36.5) 04/18/18 06:25 - Constitutional Appears: No Acute Distress - Head Exam Head Exam: ATRAUMATIC, NORMOCEPHALIC - Eye Exam Eye Exam: EOMI - ENT Exam ENT Exam: Mucous Membranes Moist - Respiratory Exam Respiratory Exam: Clear to Ausculation Bilateral (no rrw) - Cardiovascular Exam Cardiovascular Exam: REGULAR RHYTHM, +S1, +S2 - GI/Abdominal Exam GI & Abdominal Exam: Soft, Normal Bowel Sounds - Extremities Exam Additional comments: no pedeal edema - Neurological Exam Neurological Exam: Alert, Awake, Oriented x3 - Psychiatric Exam Psychiatric exam: Normal Mood - Skin Skin Exam: Dry, Warm Assessment and Plan - Assessment and Plan (Free Text) Assessment: 67yo female PMHx HTN, GERD, DM2, lumbar disc herniation and LLE sciatica presents with an episode of syncope. Found to have leukocytosis. CTAP shows LLQ necrotic mass vs abcess. s/p biopsy. - pending cultures from the biopsy and follow up pathology - Continue abx with Zosyn - F/u septic work up - Blood cultures neg thus far - Cont to monitor for any changes Case and plan was reviewed and discussed with Dr Davidson. <Servando Davidson - Last Filed: 04/22/18 14:09> Objective - Vital Signs/Intake and Output Vital Signs (last 24 hours): Temp Pulse Resp BP Pulse Ox 97.9 F 55 L 20 145/93 H 96 04/22/18 09:15 04/22/18 09:15 04/22/18 09:15 04/22/18 09:15 04/22/18 09:15 Intake and Output: 04/22/18 04/22/18 06:59 18:59 Intake Total 4500 Output Total 0 Balance 4500 - Medications Medications: Current Medications Acetaminophen (Tylenol 325mg Tab) 650 mg PO Q6H PRN PRN Reason: Pain, Mild (1-3) Last Admin: 04/21/18 22:08 Dose: 650 mg Dextrose (Dextrose 50% Inj) 0 ml IV STAT PRN; Protocol PRN Reason: Hypoglycemia Protocol Duloxetine HCl (Cymbalta) 30 mg PO HS [facility] Last Admin: 04/21/18 21:58 Dose: 30 mg Famotidine (Pepcid) 20 mg PO 1000,2200 [facility] Last Admin: 04/22/18 09:39 Dose: 20 mg Gabapentin (Neurontin) 300 mg PO DAILY [facility]; Protocol Last Admin: 04/22/18 09:38 Dose: Not Given Heparin Sodium (Porcine) (Heparin) 5,000 units SC Q12 [facility]; Protocol Last Admin: 04/22/18 11:50 Dose: Not Given Home Med (Home Med) 1 unit PO HS [facility] Last Admin: 04/21/18 22:00 Dose: 1 unit Dextrose (Dextrose 5% In Water 1000 Ml) 1,000 mls @ 0 mls/hr IV .Q0M PRN; Protocol PRN Reason: Hypoglycemia Protocol Piperacillin Sod/Tazobactam Sod (Zosyn 3.375 In Ns 100ml) 100 mls @ 25 mls/hr IVPB Q8 [facility]; Protocol Stop: 04/23/18 11:16 Last Admin: 04/22/18 13:23 Dose: 25 mls/hr Insulin Human Lispro (Humalog Low) 0 units SC ACHS [facility]; Protocol Last Admin: 04/22/18 11:49 Dose: Not Given Celecoxib [Celebrex] (200 Mg (Home Med)) 200 mg PO DAILY PRN PRN Reason: Pain, moderate (4-7) Ondansetron HCl (Zofran Inj) 4 mg IVP Q6H PRN PRN Reason: Nausea/Vomiting - Labs Labs: 04/22/18 06:00 04/22/18 06:00 PT 15.7 SECONDS (9.4-12.5) H 04/18/18 06:25 INR 1.36 04/18/18 06:25 APTT 26.4 Seconds (25.1-36.5) 04/18/18 06:25 Assessment and Plan - Assessment and Plan (Free Text) Assessment: Infectious diseases Attending Physician Attestation Patient seen and examined, discussed with medical photographer. I have reviewed the patient's history of present illness, past medical, social, personal and family histories, pertinent physical exam findings, course so far in this hospital admission, pertinent laboratory and imaging results. I agree with the above findings, assessment and plan. In addition, continue Zosyn for left lower quadrant mass, R/O infection or malignancy, S/P biopsy. Follow up pathology findings and final culture results.
--- NOTE | 2018-04-22 14:47 | PN ---
DATE: 04/22/2018 SUBJECTIVE: The patient is lying in bed. She is comfortable. She denies any further abdominal pain. PHYSICAL EXAMINATION: VITAL SIGNS: Reveal temperature of 97.9, blood pressure 145/93, heart rate of 55. HEENT: Reveal sclerae to be white. Conjunctivae pink. NECK: Supple. CHEST: Reveal lungs to be clear. HEART: Exam reveals regular rate and rhythm. ABDOMEN: Soft, nontender. No mass. EXTREMITIES: Show no edema. LABORATORY DATA: Reveal white blood cell count of 9.7, hemoglobin 10.3. Chemistries reveal normal electrolytes. IMPRESSION: A 67-year-old female with a left complex mass, rule out abscess, rule out.. Malignancy with necrosis, rule out pelvic cyst from previous endometriosis. RECOMMENDATIONS: 1. Await biopsy results. 2. We will request a repeat CT scan of the abdomen and pelvis. Derrell Mcbride MD
--- NOTE | 2018-04-22 16:03 | PN ---
DATE: 04/19/2018 SUBJECTIVE: The patient is comfortable. She tolerated her needle biopsy well. PHYSICAL EXAMINATION: VITAL SIGNS: There are no orthostatic changes. NECK: Negative JVD. HEART: S1 and S2. LUNGS: Without rales. EXTREMITIES: Without edema. DIAGNOSTIC DATA: Echocardiogram performed earlier on this admission showed good LV function with mild pulmonary hypertension. There is no LV outflow obstruction. LABORATORY DATA: Hemoglobin of 8. IMPRESSION: 1. Status post syncope, which is not cardiac related. 2. Good left ventricular function. 3. Mild pulmonary hypertension. 4. Anemia. 5. Left lower quadrant mass. PLAN: Given these findings, the patient's cardiac status is stable for potential surgery for her mass. The patient is receiving packed red blood cells in anticipation of potential surgery. Jaylen Martin MD
[2018-04-22] MEDS ORDERED: Iohexol 350 MG/100 ML VIAL ONE (16:32)
--- NOTE | 2018-04-22 17:03 | PN ---
DATE: 04/22/2018 SUBJECTIVE: The patient has been admitted and evaluated for finding of a left lower quadrant mass. She underwent biopsy of the mass, which showed only spindle cells; however, we are awaiting further pathology. Her underlying diagnosis appears to be diverticulitis, Urology consultation was requested regarding hydronephrosis. The patient reports she is feeling somewhat better. She denies any current abdominal pain. She denies any costovertebral angle tenderness or signs of renal colic. She reports she is voiding well with no dysuria, frequency, urgency or gross hematuria. PHYSICAL EXAMINATION VITAL SIGNS: She is afebrile. Temperature of 97.9, pulse of 55, BP 145/93, respirations 20. ABDOMEN: Soft, nontender. There is no rebound or guarding. There is no CVA tenderness. IMAGING DATA: No recent new imaging has been done. IMPRESSION AND PLAN: Discussed the patient with Dr. Ayala from General Surgery. He is awaiting some further results from the biopsy and then will likely be planning a laparoscopic removal of the mass. I discussed with him that we should plan on re-imaging her kidneys as she did have a prior ultrasound. I would recommend cystoscopy with placement of either a ureteral stent or ureteral catheters prior to the mass resection. Her GFR remains slightly diminished, creatinine 1.0, and there was mild hydronephrosis on prior imaging which appears to be due to this mass. He will let me know as to the timing of the surgery; however, if it is going to be delayed for an extended period of time, I would recommend cystoscopy with possible stent placement prior to the surgery. Alec Ugalde MD
--- NOTE | 2018-04-22 17:23 | PN ---
DATE: 04/22/2018 CARDIOLOGY FOLLOWUP SUBJECTIVE: The patient is asymptomatic. OBJECTIVE: VITAL SIGNS: Blood pressure 145/93, heart rates in the 50s. NECK: Negative JVD. LUNGS: Without rales. HEART: S1, S2. EXTREMITIES: Without edema. LABORATORY DATA: Hemoglobin is 10.3. Chemistries; BUN and creatinine unremarkable. IMPRESSION: 1. Status post dizziness, which is now resolved. 2. Normal echocardiogram result with good left ventricular function. 3. Left lower quadrant mass status post biopsy. 4. Diabetes mellitus. 5. Anemia. Given these findings, the patient is stable hemodynamically. Awaiting biopsy results from the left lower quadrant mass. Jaylen Martin MD
--- NOTE | 2018-04-22 18:37 | CT ---
Date of service: 04/22/2018 PROCEDURE: CT Abdomen and Pelvis with contrast HISTORY: LLQ complex mass COMPARISON: CT scan of the abdomen pelvis dated 04/16/2018. TECHNIQUE: Contrast dose: 100 mL Omnipaque 350 Radiation dose: Total exam DLP = 584.29 mGy-cm. This CT exam was performed using one or more of the following dose reduction techniques: Automated exposure control, adjustment of the mA and/or kV according to patient size, and/or use of iterative reconstruction technique. FINDINGS: LOWER THORAX: Unremarkable. LIVER: Scattered hepatic cysts. The no gross lesion or ductal dilatation. GALLBLADDER AND BILE DUCTS: Unremarkable. PANCREAS: Unremarkable. No gross lesion or ductal dilatation. SPLEEN: Unremarkable. ADRENALS: Unremarkable. No mass. KIDNEYS AND URETERS: Moderate left hydroureteronephrosis. No hydronephrosis. No solid mass. VASCULATURE: Unremarkable. No aortic aneurysm. No aortic atherosclerotic calcification or mural plaque present. BOWEL: Sigmoid diverticulosis and wall thickening. Contiguity with the previously described complex collection which now predominantly contains air. No obstruction. No gross mural thickening. APPENDIX: No findings to suggest acute appendicitis. PERITONEUM: Unremarkable. No free fluid. No free air. LYMPH NODES: Unremarkable. No enlarged lymph nodes. BLADDER: Unremarkable. REPRODUCTIVE: New left-sided hydrosalpinx, likely reactive. BONES: No acute fracture. OTHER FINDINGS: None. IMPRESSION: Previously described left lower quadrant mass now predominantly contains air post percutaneous biopsy. There is communication with the thickened sigmoid colon which contains numerous diverticula. The possibility of perforated diverticulitis with abscess formation is not excluded. There is left hydrosalpinx, likely reactive to the adjacent inflammatory process. Similarly, there is stable moderate left hydroureteronephrosis, which may be reactive or may be due to inflammatory ureteral stricture.
[2018-04-22] MEDS: PRAVACHOL 20 MG PO SCH (22:06)
[2018-04-23] MEDS: Piperacillin/Tazobact 3.375 gm 100 ML IVPB SCH (05:47)
[2018-04-23 06:19] LABS: BASO # 0.02 K/mm3 (0.0-2.0); BASO % 0.2 % (0.0-3.0); EOS # 0.2 (0.0-0.7); EOS % 2.3 % (1.5-5.0); GRAN # 5.47 (1.4-6.5); GRAN % 61.7 % (50.0-68.0); LYMPH # 2.4 (1.2-3.4); LYMPH % 27.1 % (22.0-35.0); MEAN CELL VOLUME 88.3 fl (80.0-105.0); MEAN CORPUSCULAR HEMOGLOBIN 27.2 pg (25.0-35.0); MEAN CORPUSCULAR HGB CONC 30.9 g/dl (31.0-37.0); MEAN PLATELET VOLUME 8.6 fl (7.0-11.0); MONO # 0.8 (0.1-0.6); MONO % 8.7 % (1.0-6.0); RBC 3.67 10^6/uL (3.5-6.1); RED CELL DISTRIBUTION WIDTH 17.1 % (11.5-14.5); WHITE BLOOD COUNT 8.9 10^3/uL (4.5-11.0)
[2018-04-23 07:24] LABS: ALB/GLOB RATIO 0.9 (1.1-1.8); ALBUMIN 3.2 g/dL (3.0-4.8); ALT/SGPT 23 U/L (7-56); AST/SGOT 36 U/L (14-36); BLOOD UREA NITROGEN 12 mg/dL (7-21); CALCIUM 8.9 mg/dL (8.4-10.5); GFR NON-AFRICAN AMERICAN > 60
[2018-04-23 07:58] VITALS: BP 134/86; TEMP 97.7; O2SAT 97
--- NOTE | 2018-04-23 08:41 | CP.PCM.PN ---
<Chriss Parrish - Last Filed: 04/23/18 08:42> Subjective - Date & Time of Evaluation Date of Evaluation: 04/23/18 Time of Evaluation: 07:50 - Subjective Subjective: Infectious disease progress note: Pt seen and examined at bedside. No acute events overnight. Feeling well and denies any complaints. 12 Point ROS performed and neg other than stated above. Objective - Vital Signs/Intake and Output Vital Signs (last 24 hours): Temp Pulse Resp BP Pulse Ox 97.7 F 55 L 20 134/86 97 04/23/18 07:57 04/23/18 07:57 04/23/18 07:57 04/23/18 07:57 04/23/18 07:57 Intake and Output: 04/23/18 04/23/18 06:59 18:59 Intake Total 240 Balance 240 - Medications Medications: Current Medications Acetaminophen (Tylenol 325mg Tab) 650 mg PO Q6H PRN PRN Reason: Pain, Mild (1-3) Last Admin: 04/22/18 22:08 Dose: 650 mg Dextrose (Dextrose 50% Inj) 0 ml IV STAT PRN; Protocol PRN Reason: Hypoglycemia Protocol Duloxetine HCl (Cymbalta) 30 mg PO HS [facility] Last Admin: 04/22/18 22:04 Dose: 30 mg Famotidine (Pepcid) 20 mg PO 1000,2200 [facility] Last Admin: 04/22/18 22:04 Dose: 20 mg Gabapentin (Neurontin) 300 mg PO DAILY [facility]; Protocol Last Admin: 04/22/18 09:38 Dose: Not Given Heparin Sodium (Porcine) (Heparin) 5,000 units SC Q12 [facility]; Protocol Last Admin: 04/22/18 22:14 Dose: Not Given Home Med (Home Med) 1 unit PO HS [facility] Last Admin: 04/22/18 22:06 Dose: 1 unit Dextrose (Dextrose 5% In Water 1000 Ml) 1,000 mls @ 0 mls/hr IV .Q0M PRN; Protocol PRN Reason: Hypoglycemia Protocol Piperacillin Sod/Tazobactam Sod (Zosyn 3.375 In Ns 100ml) 100 mls @ 25 mls/hr IVPB Q8 [facility]; Protocol Stop: 04/23/18 11:16 Last Admin: 04/23/18 05:47 Dose: 25 mls/hr Insulin Human Lispro (Humalog Low) 0 units SC [facility]; Protocol Last Admin: 04/22/18 16:40 Dose: Not Given Celecoxib [Celebrex] (200 Mg (Home Med)) 200 mg PO DAILY PRN PRN Reason: Pain, moderate (4-7) Ondansetron HCl (Zofran Inj) 4 mg IVP Q6H PRN PRN Reason: Nausea/Vomiting - Labs Labs: 04/23/18 06:00 04/23/18 06:00 PT 15.7 SECONDS (9.4-12.5) H 04/18/18 06:25 INR 1.36 04/18/18 06:25 APTT 26.4 Seconds (25.1-36.5) 04/18/18 06:25 - Constitutional Appears: No Acute Distress - Head Exam Head Exam: ATRAUMATIC, NORMOCEPHALIC - Eye Exam Eye Exam: EOMI - ENT Exam ENT Exam: Mucous Membranes Moist - Respiratory Exam Respiratory Exam: Clear to Ausculation Bilateral (no r/r/w) - Cardiovascular Exam Cardiovascular Exam: REGULAR RHYTHM, +S1, +S2 - GI/Abdominal Exam GI & Abdominal Exam: Soft, Normal Bowel Sounds - Extremities Exam Extremities Exam: absent: Calf Tenderness, Pedal Edema - Neurological Exam Neurological Exam: Alert, Awake, Oriented x3 - Psychiatric Exam Psychiatric exam: Normal Mood - Skin Skin Exam: Dry, Warm Assessment and Plan - Assessment and Plan (Free Text) Assessment: 67yo female PMHx HTN, GERD, DM2, lumbar disc herniation and LLE sciatica presents with an episode of syncope. Found to have leukocytosis. CTAP shows LLQ necrotic mass vs abcess. s/p biopsy. - Waiting final cultures and pathology - Continue Zosyn - F/u septic work up - Blood cultures neg - Cont to monitor for any changes Case and plan was reviewed and discussed with Dr Davidson. <Servando Davidson - Last Filed: 04/23/18 14:45> Objective - Vital Signs/Intake and Output Vital Signs (last 24 hours): Temp Pulse Resp BP Pulse Ox 97.7 F 55 L 20 134/86 97 04/23/18 07:57 04/23/18 07:57 04/23/18 07:57 04/23/18 07:57 04/23/18 07:57 Intake and Output: 04/23/18 04/23/18 06:59 18:59 Intake Total 240 Balance 240 - Medications Medications: Current Medications Acetaminophen (Tylenol 325mg Tab) 650 mg PO Q6H PRN PRN Reason: Pain, Mild (1-3) Last Admin: 04/22/18 22:08 Dose: 650 mg Dextrose (Dextrose 50% Inj) 0 ml IV STAT PRN; Protocol PRN Reason: Hypoglycemia Protocol Duloxetine HCl (Cymbalta) 30 mg PO HS [facility] Last Admin: 04/22/18 22:04 Dose: 30 mg Famotidine (Pepcid) 20 mg PO 1000,2200 [facility] Last Admin: 04/23/18 09:29 Dose: 20 mg Gabapentin (Neurontin) 300 mg PO DAILY [facility]; Protocol Last Admin: 04/23/18 09:29 Dose: 300 mg Heparin Sodium (Porcine) (Heparin) 5,000 units SC Q12 [facility]; Protocol Last Admin: 04/23/18 09:29 Dose: Not Given Home Med (Home Med) 1 unit PO HS [facility] Last Admin: 04/22/18 22:06 Dose: 1 unit Dextrose (Dextrose 5% In Water 1000 Ml) 1,000 mls @ 0 mls/hr IV .Q0M PRN; Protocol PRN Reason: Hypoglycemia Protocol Insulin Human Lispro (Humalog Low) 0 units SC ACHS [facility]; Protocol Last Admin: 04/23/18 09:23 Dose: Not Given Celecoxib [Celebrex] (200 Mg (Home Med)) 200 mg PO DAILY PRN PRN Reason: Pain, moderate (4-7) Ondansetron HCl (Zofran Inj) 4 mg IVP Q6H PRN PRN Reason: Nausea/Vomiting - Labs Labs: 04/23/18 06:00 04/23/18 06:00 PT 15.7 SECONDS (9.4-12.5) H 04/18/18 06:25 INR 1.36 04/18/18 06:25 APTT 26.4 Seconds (25.1-36.5) 04/18/18 06:25 Assessment and Plan - Assessment and Plan (Free Text) Assessment: Infectious diseases Attending Physician Attestation Patient seen and examined, discussed with medical technologist blood bank. I have reviewed the patient's history of present illness, past medical, social, personal and family histories, pertinent physical exam findings, course so far in this hospital admission, pertinent laboratory and imaging results. I agree with the above findings, assessment and plan. In addition, continue Zosyn for left lower quadrant mass, consider abscess or malignancy S/P IR-guided biopsy. Will monitor clinically while the patient is in the hospital and follow up pathology results.
[2018-04-23] MEDS: Insulin Lispro (humaLOG) LOW Coverage SC SCH (09:23)
--- NOTE | 2018-04-23 10:11 | CP.PCM.PN ---
Subjective - Date & Time of Evaluation Date of Evaluation: 04/23/18 Time of Evaluation: 07:30 - Subjective Subjective: Surgery progress note- Dr. Ayala Patient seen and examined at bedside. She reports no complaints. Having regular BM and tolerating her diet. She denied abd pain, N/V/D. Objective - Vital Signs/Intake and Output Vital Signs (last 24 hours): Temp Pulse Resp BP Pulse Ox 97.7 F 55 L 20 134/86 97 04/23/18 07:57 04/23/18 07:57 04/23/18 07:57 04/23/18 07:57 04/23/18 07:57 Intake and Output: 04/23/18 04/23/18 06:59 18:59 Intake Total 240 Balance 240 - Medications Medications: Current Medications Acetaminophen (Tylenol 325mg Tab) 650 mg PO Q6H PRN PRN Reason: Pain, Mild (1-3) Last Admin: 04/22/18 22:08 Dose: 650 mg Dextrose (Dextrose 50% Inj) 0 ml IV STAT PRN; Protocol PRN Reason: Hypoglycemia Protocol Duloxetine HCl (Cymbalta) 30 mg PO HS [facility] Last Admin: 04/22/18 22:04 Dose: 30 mg Famotidine (Pepcid) 20 mg PO 1000,2200 ELI Last Admin: 04/23/18 09:29 Dose: 20 mg Gabapentin (Neurontin) 300 mg PO DAILY [facility]; Protocol Last Admin: 04/23/18 09:29 Dose: 300 mg Heparin Sodium (Porcine) (Heparin) 5,000 units SC Q12 [facility]I; Protocol Last Admin: 04/23/18 09:29 Dose: Not Given Home Med (Home Med) 1 unit PO HS [facility] Last Admin: 04/22/18 22:06 Dose: 1 unit Dextrose (Dextrose 5% In Water 1000 Ml) 1,000 mls @ 0 mls/hr IV .Q0M PRN; Protocol PRN Reason: Hypoglycemia Protocol Piperacillin Sod/Tazobactam Sod (Zosyn 3.375 In Ns 100ml) 100 mls @ 25 mls/hr IVPB Q8 [facility]I; Protocol Stop: 04/23/18 11:16 Last Admin: 04/23/18 05:47 Dose: 25 mls/hr Insulin Human Lispro (Humalog Low) 0 units SC ACHS [facility]I; Protocol Last Admin: 04/23/18 09:23 Dose: Not Given Celecoxib [Celebrex] (200 Mg (Home Med)) 200 mg PO DAILY PRN PRN Reason: Pain, moderate (4-7) Ondansetron HCl (Zofran Inj) 4 mg IVP Q6H PRN PRN Reason: Nausea/Vomiting - Labs Labs: 04/23/18 06:00 04/23/18 06:00 PT 15.7 SECONDS (9.4-12.5) H 04/18/18 06:25 INR 1.36 04/18/18 06:25 APTT 26.4 Seconds (25.1-36.5) 04/18/18 06:25 - Constitutional Appears: Well - Head Exam Head Exam: ATRAUMATIC, NORMAL INSPECTION, NORMOCEPHALIC - Eye Exam Eye Exam: EOMI, Normal appearance, PERRL Pupil Exam: NORMAL ACCOMODATION, PERRL - ENT Exam ENT Exam: Mucous Membranes Moist, Normal Exam - Respiratory Exam Respiratory Exam: Clear to Ausculation Bilateral, NORMAL BREATHING PATTERN. absent: Rales, Wheezes, Respiratory Distress - Cardiovascular Exam Cardiovascular Exam: REGULAR RHYTHM, +S1, +S2. absent: Gallop, Rubs, Murmur - GI/Abdominal Exam GI & Abdominal Exam: Soft, Normal Bowel Sounds. absent: Guarding, Rigid, Tenderness, Hernia, Mass, Organomegaly - Back Exam Back Exam: NORMAL INSPECTION - Neurological Exam Neurological Exam: Alert, Awake, Oriented x3 - Psychiatric Exam Psychiatric exam: Normal Affect, Normal Mood - Skin Skin Exam: Dry, Intact, Normal Color, Warm Assessment and Plan - Assessment and Plan (Free Text) Assessment: 67 y/o female admitted for syncope episode. Found to have 7cm LLQ complex mass on CT A/P. s/p biopsy by IR, pathology pending Patient asymptomatic, afebrile, no leukocytosis, negative blood Cx Plan: -repeat CT A/P w/ PO&IV contrast (04/22): shows air in LLQ mass, numerous diverticula with thickened sigmoid colon. Stable moderate left hydroureteronephrosis -still waiting for pathology report of LLQ mass biopsy -possible surgical removal of the mass/diverticula after getting biopsy results -continue abx/IVF -will continue to follow -further recs as per surgical attending Dr. Jamie Rothman, DO
--- NOTE | 2018-04-23 11:30 | CP.PCM.PN ---
Subjective - Date & Time of Evaluation Date of Evaluation: 04/23/18 Time of Evaluation: 11:27 - Subjective Subjective: Surgery: Dr. Ayala Pt seen and examined. Resting comfortably in bed. No complaints. Objective - Vital Signs/Intake and Output Vital Signs (last 24 hours): Temp Pulse Resp BP Pulse Ox 97.7 F 55 L 20 134/86 97 04/23/18 07:57 04/23/18 07:57 04/23/18 07:57 04/23/18 07:57 04/23/18 07:57 Intake and Output: 04/23/18 04/23/18 06:59 18:59 Intake Total 240 Balance 240 - Medications Medications: Current Medications Acetaminophen (Tylenol 325mg Tab) 650 mg PO Q6H PRN PRN Reason: Pain, Mild (1-3) Last Admin: 04/22/18 22:08 Dose: 650 mg Dextrose (Dextrose 50% Inj) 0 ml IV STAT PRN; Protocol PRN Reason: Hypoglycemia Protocol Duloxetine HCl (Cymbalta) 30 mg PO HS [facility] Last Admin: 04/22/18 22:04 Dose: 30 mg Famotidine (Pepcid) 20 mg PO 1000,2200 ELI Last Admin: 04/23/18 09:29 Dose: 20 mg Gabapentin (Neurontin) 300 mg PO DAILY [facility]; Protocol Last Admin: 04/23/18 09:29 Dose: 300 mg Heparin Sodium (Porcine) (Heparin) 5,000 units SC Q12 [facility]I; Protocol Last Admin: 04/23/18 09:29 Dose: Not Given Home Med (Home Med) 1 unit PO HS [facility] Last Admin: 04/22/18 22:06 Dose: 1 unit Dextrose (Dextrose 5% In Water 1000 Ml) 1,000 mls @ 0 mls/hr IV .Q0M PRN; Protocol PRN Reason: Hypoglycemia Protocol Insulin Human Lispro (Humalog Low) 0 units SC ACHS ELI; Protocol Last Admin: 04/23/18 09:23 Dose: Not Given Celecoxib [Celebrex] (200 Mg (Home Med)) 200 mg PO DAILY PRN PRN Reason: Pain, moderate (4-7) Ondansetron HCl (Zofran Inj) 4 mg IVP Q6H PRN PRN Reason: Nausea/Vomiting - Labs Labs: 04/23/18 06:00 04/23/18 06:00 PT 15.7 SECONDS (9.4-12.5) H 04/18/18 06:25 INR 1.36 04/18/18 06:25 APTT 26.4 Seconds (25.1-36.5) 04/18/18 06:25 - Constitutional Appears: Non-toxic, No Acute Distress - Head Exam Head Exam: ATRAUMATIC, NORMOCEPHALIC - Eye Exam Eye Exam: EOMI - ENT Exam ENT Exam: Mucous Membranes Moist - Neck Exam Neck Exam: Full ROM - Respiratory Exam Respiratory Exam: NORMAL BREATHING PATTERN. absent: Accessory Muscle Use, Respiratory Distress - GI/Abdominal Exam GI & Abdominal Exam: Soft. absent: Distended, Firm, Guarding, Rigid, Tenderness, Rebound - Neurological Exam Neurological Exam: Alert, Awake, Oriented x3 Assessment and Plan - Assessment and Plan (Free Text) Assessment: 67F w. Sigmoid diverticulitis/abscess, s/p IR bx -awaiting results of Bx -will Tentatively plan for sigmoidectomy this -consult urology for placement of ureteral catheters -continue w. medical management -d/w attending Vladimir PGY4
--- NOTE | 2018-04-23 12:21 | CP.PCM.PCO ---
Physician Communication Note - Physician Communication Note Physician Communication Note: Dr.Simpson [email or web address],advised OR miranda s,colon.resection,colostomy,path ?tomm
--- NOTE | 2018-04-23 12:22 | CP.PCM.PCO ---
Physician Communication Note - Physician Communication Note Physician Communication Note: Pt.expressed wants 2nd surgical opinion at another hospital,refuses sx here
--- NOTE | 2018-04-23 12:48 | CP.PCM.DIS ---
<Jeanette Aburto - Last Filed: 04/23/18 13:13> Provider - Provider Date of Admission: 04/15/18 16:57 Attending physician: Lonny Fields MD Primary care physician: Thomas Amaya APN Consults: 04/15/18 09:05 Cardiology Consult Routine Comment: Consulting Provider: Jaylen Martin Consulting Physician: Jaylen Martin Reason for Consult: syncope Neurology Consult Routine Comment: Consulting Provider: Jose Manzanares Consulting Physician: Jose Manzanares Reason for Consult: syncope 04/15/18 16:53 Consult [Physician Consult] Routine Comment: Consulting Provider: Justo Parsons Consulting Physician: Justo Parsons Reason for Consult: leucocytosis 04/15/18 16:56 Consult [Physician Consult] Routine Comment: Consulting Provider: Kimberly Ferguson Consulting Physician: Kimberly Ferguson Reason for Consult: anemia 04/16/18 08:50 Consult [Physician Consult] Routine Comment: Consulting Provider: Derrell Mcbride Consulting Physician: Derrell Mcbride Reason for Consult: anemia 04/16/18 11:48 General Surgery Consult Routine Comment: Consulting Provider: Rainer Ayala Consulting Physician: Rainer Ayala Reason for Consult: 7cm complex mass w/ spiculated borders in LLQ on CT Abd/pelvis 04/16/18 12:56 Consult [Physician Consult] Routine Comment: Consulting Provider: Jaylen Vickers Consulting Physician: Jaylen Vickers Reason for Consult: llq necrotic mass vs . abscess, eval bx, drainage 04/17/18 08:43 Consult [Physician Consult] Routine Comment: Consulting Provider: Alec Ugalde Consulting Physician: Alec Ugalde Reason for Consult: L hydro with LLQ mass Time Spent in preparation of Discharge (in minutes): 45 Hospital Course - Lab Results Lab Results: Micro Results 04/18/18 11:32 Other: Please Indicate Gram Stain - Final 04/18/18 11:32 Other: Please Indicate Body Fluid Culture - Final No growth. 04/18/18 11:32 Other: Please Indicate Anaerobic Culture - Final NO ANAEROBES ISOLATED. 04/18/18 11:32 Other: Please Indicate Fungal Culture - Preliminary 04/14/18 20:47 Blood Blood Culture - Final NO GROWTH AFTER 5 DAYS 04/14/18 20:47 Blood Gram Stain - Final TEST NOT PERFORMED 04/14/18 20:20 Blood Blood Culture - Final NO GROWTH AFTER 5 DAYS 04/14/18 20:20 Blood Gram Stain - Final TEST NOT PERFORMED 04/14/18 18:16 Urine Random Urine Culture - Final No Growth (<1,000 CFU/ML) Most Recent Lab Values WBC 8.9 10^3/uL (4.5-11.0) 04/23/18 06:00 RBC 3.67 10^6/uL (3.5-6.1) 04/23/18 06:00 Hgb 10.0 g/dL (12.0-16.0) L 04/23/18 06:00 Hct 32.4 % (36.0-48.0) L 04/23/18 06:00 MCV 88.3 fl (80.0-105.0) 04/23/18 06:00 MCH 27.2 pg (25.0-35.0) 04/23/18 06:00 MCHC 30.9 g/dl (31.0-37.0) L 04/23/18 06:00 RDW 17.1 % (11.5-14.5) H 04/23/18 06:00 Plt Count 457 10^3/uL (120.0-450.0) H 04/23/18 06:00 MPV 8.6 fl (7.0-11.0) 04/23/18 06:00 Gran % 61.7 % (50.0-68.0) 04/23/18 06:00 Lymph % (Auto) 27.1 % (22.0-35.0) 04/23/18 06:00 [place] % (Auto) 8.7 % (1.0-6.0) H 04/23/18 06:00 Eos % (Auto) 2.3 % (1.5-5.0) 04/23/18 06:00 Baso % (Auto) 0.2 % (0.0-3.0) 04/23/18 06:00 Gran # 5.47 (1.4-6.5) 04/23/18 06:00 Lymph # (Auto) 2.4 (1.2-3.4) 04/23/18 06:00 [place] # (Auto) 0.8 (0.1-0.6) H 04/23/18 06:00 Eos # (Auto) 0.2 (0.0-0.7) 04/23/18 06:00 Baso # (Auto) 0.02 K/mm3 (0.0-2.0) 04/23/18 06:00 Retic Count 2.51 % (0.5-1.5) H 04/16/18 06:00 PT 15.7 SECONDS (9.4-12.5) H 04/18/18 06:25 INR 1.36 04/18/18 06:25 APTT 26.4 Seconds (25.1-36.5) 04/18/18 06:25 Sodium 142 mmol/L (132-148) 04/23/18 06:00 Potassium 3.7 mmol/L (3.6-5.0) 04/23/18 06:00 Chloride 107 mmol/L (98-107) 04/23/18 06:00 Carbon Dioxide 30 mmol/L (21-33) 04/23/18 06:00 Anion Gap 9 (10-20) L 04/23/18 06:00 BUN 12 mg/dL (7-21) 04/23/18 06:00 Creatinine 0.9 mg/dl (0.7-1.2) 04/23/18 06:00 Est GFR ( Amer) > 60 04/23/18 06:00 Est GFR (Non-Af Amer) > 60 04/23/18 06:00 POC Glucose (mg/dL) 148 mg/dL (65-110) H 04/23/18 11:07 Random Glucose 86 mg/dL (70-110) 04/23/18 06:00 Hemoglobin A1c 7.2 % (4.2-6.5) H 04/15/18 11:00 Calcium 8.9 mg/dL (8.4-10.5) 04/23/18 06:00 Phosphorus 3.9 mg/dL (2.5-4.5) 04/20/18 08:20 Magnesium 2.2 mg/dL (1.7-2.2) 04/20/18 08:20 Iron 20 ug/dL (45-180) L 04/16/18 06:00 TIBC 199 ug/dL (265-497) L 04/16/18 06:00 % Saturation 10 % (20-55) L 04/16/18 06:00 Transferrin 140.90 mg/dL (206-381) L 04/16/18 06:30 Vicki Transferrin Receptr 1.64 mg/L (0.76-1.76) 04/16/18 06:30 Ferritin 798.0 ng/mL 04/16/18 06:00 Total Bilirubin 0.3 mg/dL (0.2-1.3) 04/23/18 06:00 AST 36 U/L (14-36) D 04/23/18 06:00 ALT 23 U/L (7-56) 04/23/18 06:00 Alkaline Phosphatase 70 U/L (38-126) 04/23/18 06:00 Lactate Dehydrogenase 561 U/L (333-699) 04/14/18 17:35 Total Creatine Kinase 26 U/L (35-230) L 04/14/18 17:35 Troponin I < 0.01 ng/mL 04/14/18 17:35 NT-Pro-B Natriuret Pep 238 pg/mL (0-450) 04/14/18 17:35 Total Protein 6.8 g/dL (5.8-8.3) 04/23/18 06:00 Albumin 3.2 g/dL (3.0-4.8) 04/23/18 06:00 Globulin 3.6 gm/dL 04/23/18 06:00 Albumin/Globulin Ratio 0.9 (1.1-1.8) L 04/23/18 06:00 Triglycerides 89 mg/dL (35-160) 04/16/18 06:00 Cholesterol 104 mg/dL (130-200) L 04/16/18 06:00 LDL Cholesterol Direct 53 mg/dL (0-129) 04/16/18 06:00 HDL Cholesterol 22 mg/dL (29-60) L 04/16/18 06:00 Carcinoembryonic Ag 2.1 ng/mL (0.0-3.0) 04/16/18 06:00 CA 19-9 Antigen 2.6 U/mL (0-37) 04/16/18 06:00 CA 125 Antigen 16.7 U/mL (0-35) 04/16/18 06:00 Total T3 0.95 ng/mL (0.97-1.69) L 04/14/18 17:35 TSH 3rd Generation 1.94 mIU/mL (0.46-4.68) 04/14/18 17:35 Urine Color Yellow (YELLOW) 04/14/18 18:16 Urine Appearance Clear (CLEAR) 04/14/18 18:16 Urine pH 6.0 (4.7-8.0) 04/14/18 18:16 Ur Specific [place] 1.020 (1.005-1.035) 04/14/18 18:16 Urine Protein Negative mg/dL (<30 mg/dL) 04/14/18 18:16 Urine Glucose (UA) Negative mg/dL (NEGATIVE) 04/14/18 18:16 Urine Ketones Negative mg/dL (NEGATIVE) 04/14/18 18:16 Urine Blood Negative (NEGATIVE) 04/14/18 18:16 Urine Nitrate Negative (NEGATIVE) 04/14/18 18:16 Urine Bilirubin Negative (NEGATIVE) 04/14/18 18:16 Urine Urobilinogen 0.2 E.U./dL (<1 E.U./dL) 04/14/18 18:16 Ur Leukocyte Esterase Negative Emma/uL (NEGATIVE) 04/14/18 18:16 Stool Occult Blood Negative (NEGATIVE) 04/18/18 10:15 BCR/abl Source Not given 04/16/18 09:00 BCR/abl Prior Result Not given 04/16/18 09:00 BCR/abl Interpretation See note 04/16/18 09:00 BCR/abl1 to abl1 % 0.000 (0.000) 04/16/18 09:00 BCR/abl1 to abl1 IS % 0.000 (0.000) 04/16/18 09:00 BCR/abl1 Mnr (p190) Res Not detected 04/16/18 09:00 BCR/abl1 Mjr (p210) Res Not detected 04/16/18 09:00 WB Flow Cytometry Reference test 04/16/18 08:25 Blood Type O POSITIVE 04/17/18 11:20 Blood Type Confirm O POSITIVE 04/17/18 11:50 Antibody Screen Negative 04/17/18 11:20 Crossmatch See Detail 04/17/18 11:20 BBK History Checked No verified bt 04/17/18 11:20 - Hospital Course Hospital Course: Upon Admission As per HPI: "67yo female PMHx HTN, GERD, DM2, lumbar disc herniation and LLE sciatica presens with episode of syncope at home. Patient reports she had returned home from buying groceries and after sitting down she stood up to reach her phone and started to feel dizzy. She had an episode of LOC and woke up on the floor. She was uncertain of how long she was on the floor for. She reported lightheadedness during this episode but denied any loss of bowel/bladder control, biting of the tongue. She was also unsure whether she hit her head but did complain of a mild dull headache. The patient denied any numbness/tingling/focal weakness/change in vision/change in taste/smell. Patient denied any history of seizures. Patient did report that recently she has noted a decreased appetite and a 20 pound unintentional weight loss over 3 months. Additionally she reported that sometimes when she is in the shower/moving around she experiences a sense of heaviness in her chest with associated nausea but no overt chest pain or shortness of breath. Patient states she has had a stress test in the past 2 years ago but could not recall the result. She has also had an EGD and colonoscopy done but cannot recall the results. On ROS patient denied fever, chills, headache, palpitations, cough, abd pain, vomiting, bowel/bladder complaints. She has a history of sciatica and complained of LLE pain. Hospital Course Patient was admitted to [facility] for syncope work up. Patient's syncope likely vasovagal in nature with regards to clinical picture but must take into consideration other cardiogenic vs neurogenic causes. CT head, carotid u/s, and orthostatics were unremarkable. Patient's blood pressure medications were held and patient remained normotensive throughout hospital course. An echo was orde red which was unremarkable. As per cardiology, the syncopal episode was likely not cardiogenic in nature and she no longer required telemetry and was recommended to have a Lexiscan does as an outpatient. Patient was noted to have iron deficient anemia, leukocytosis, and thrombocytosis on blood work and hematology was consulted. She was taken for CT Abd/pelvis that showed a 7cm LLQ mass with spiculated borders and pockets of air-fluid which was concerning for a necrotic mass vs abscess. No obvious diverticular disease was noted at that time. Blood and urine cultures were negative. Patient was started on Zosyn as per ID and Surgery and GI were consulted. Patient was taken for CT guided biopsy of the LLQ mass by IR- results still pending. Tumor markers CEA, CA19-9, CA125 were all wnl. Patient also had a vaginal u/s done that shows small cervical nabothian cyst; L ovary not seen; R ovary not positively identified. As patient's CT showed L sided hydronephrosis, urology was consulted who deemed that since GFR was normal, hydronephrosis likely to resolve with resolution of mass which is likely an old abscess. Regarding the anemia, patient was offered the option of blood transfusion which she refused at first. She was started on IV venofer and later agreed to being transfused 2U PRBC which her Hgb responded to appropriately. Patient had a flow cytometry done that revealed no immunophen otypic evidence for abnormal myeloid maturation, increase in blasts, or a lymphoproliferative disorder. Patient was continued on home Celebrex, Cymbalta, and Neurontin during her hospital stay and she was continued on her home HLD medication. Her home metformin was held and she was placed on Accuchecks and RISS. Throughout hospital course patient remained afebrile and leukocytosis resolved. She clinically improved and was able to tolerate a regular diet with no pain in her LLQ. Patient had a repeat CT Abd/pelvis that revealed the LLQ mass now contained air post biopsy and that there was a communication with the thickened sigmoid colon containing numerous diverticula; there was a possibility of perforated diverticulitis with abscess formation which could not be excluded; there was a left hydrosalpinx likely reactive to the adjacent inflammatory process and similarly a stable moderate L hydroureteronephrosis which could be reactive or due to inflammatory ureteral stricture. As per surgery patient was tentatively scheduled for sigmoidectomy on April 25. However patient was requesting that she be seen at a different institute and was requesting a second opinion of her clinical course. Since the patient had clinically improved and was asymptomatic, afebrile and with no leukocystosis it was decided to respect the autonomy and decision of the patient to be discharged. Patient was optimized for discharge and was counseled thoroughly regarding the importance of following up with her PMD and multiple specialties. The patient's questions were answered and addressed thoroughly and the patient was discharged on PO antibiotics as per her request. Discharge Instructions "You are being discharged from [facility]. Upon discharge you may resume your home medications as prescribed by your primary care doctor but please do NOT resume your hypertension medication Losartan-HCTZ 100-12.5mg daily. Also please HOLD your home dose of Metformin at this time. You may resume taking it on April 25. You are additionally being discharged on the following medication as prescribed: -Augmentin 875-125mg 1 tab by mouth every 12 hours for 7 days Disp#14 Please follow up with your PMD Dr. Amaya within 7 days of discharge Please follow up with Cardiology Dr. Martin within 10 days of discharge and please call his office to schedule your Lexiscan Please follow up with Hematology Dr. Ferguson within 10 days of discharge for iron infusions and further work up Please follow up with Surgery Dr. Ayala within 10 days of discharge Please follow up with Gastroenterology Dr. Mcbride within 10-14 days of discharge Please follow up with Urology Dr. Ugalde within 10-14 days of discharge If symptoms return please visit your nearest Emergency Room." Instructions discussed in detail with patient and patient's sister and brother who were in the room who voiced understanding and agreement Please note this is a discharge summary. For full hospital course please refer to EMR. Discharge Exam - Additional Findings Additional findings: - Constitutional Appears: Non-toxic, No Acute Distress - Head Exam Head Exam: ATRAUMATIC, NORMAL INSPECTION, NORMOCEPHALIC - Eye Exam Eye Exam: EOMI, Normal appearance, PERRL. absent: Conjunctival injection, Scleral icterus Pupil Exam: NORMAL ACCOMODATION - ENT Exam ENT Exam: Mucous Membranes Moist - Neck Exam Neck Exam: Full ROM, Normal Inspection. absent: Lymphadenopathy - Respiratory Exam Respiratory Exam: Clear to Ausculation Bilateral, NORMAL BREATHING PATTERN. absent: Accessory Muscle Use, Rales, Rhonchi, Wheezes, Respiratory Distress - Cardiovascular Exam Cardiovascular Exam: REGULAR RHYTHM, +S1, +S2 - GI/Abdominal Exam GI & Abdominal Exam: Soft, Normal Bowel Sounds. absent: Distended, Firm, Guarding, Rigid, Tenderness, Organomegaly, Rebound - Rectal Exam Rectal Exam: Deferred - Extremities Exam Extremities Exam: Normal Capillary Refill, Normal Inspection. absent: Pedal Edema, Tenderness - Back Exam Back Exam: NORMAL INSPECTION. absent: rash noted, tenderness - Neurological Exam Neurological Exam: Alert, Awake, CN II-XII Intact, Oriented x3 - Psychiatric Exam Psychiatric exam: Normal Affect, Normal Mood - Skin Skin Exam: Dry, Intact, Normal Color, Warm Discharge Plan - Discharge Medications Prescriptions: Amoxicillin/Clavulanate [Augmentin 875 MG-125 MG] 1 tab PO Q12 7 Days #14 tab - Follow Up Plan Condition: STABLE Disposition: HOME/ ROUTINE Instructions: Anemia Caused by Low Iron, Adult (DC), Syncope (Fainting) (DC), Dizziness, Nonvertigo, (DC), Near Fainting (DC), Syncope (DC), Syncope (GEN), Leukocytosis (DC), Leukocytosis (GEN) Additional Instructions: You are being discharged from [facility]. Upon discharge you may resume your home medications as prescribed by your primary care doctor but please do NOT resume your hypertension medication Losartan-HCTZ 100-12.5mg daily. Also please HOLD your home dose of Metformin at this time. You may resume taking it on April 25. You are additionally being discharged on the following medication as prescribed: -Augmentin 875-125mg 1 tab by mouth every 12 hours for 7 days Disp#14 Please follow up with your PMD Dr. Amaya within 7 days of discharge Please follow up with Cardiology Dr. Martin within 10 days of discharge and please call his office to schedule your Lexiscan Please follow up with Hematology Dr. Ferguson within 10 days of discharge for iron infusions and further work up Please follow up with Surgery Dr. Ayala within 10 days of discharge Please follow up with Gastroenterology Dr. Mcbride within 10-14 days of discharge Please follow up with Urology Dr. Ugalde within 10-14 days of discharge If symptoms return please visit your nearest Emergency Room. Referrals: Derrell Mcbride MD [Staff Provider] - Alec Ugalde MD [Staff Provider] - Thomas Amaya APN [Primary Care Provider] - Kimberly Ferguson MD [Staff Provider] - Rainer Ayala MD [Staff Provider] - Jaylen Martin MD [Staff Provider] - <Lonny Fields - Last Filed: 04/23/18 20:03> Provider - Provider Date of Admission: 04/15/18 16:57 Attending physician: Lonny Fields MD Primary care physician: Thomas Amaya APN Consults: 04/15/18 09:05 Cardiology Consult Routine Comment: Consulting Provider: Jaylen Martin Consulting Physician: Jaylen Martin Reason for Consult: syncope Neurology Consult Routine Comment: Consulting Provider: Jose Manzanares Consulting Physician: Jose Manzanares Reason for Consult: syncope 04/15/18 16:53 Consult [Physician Consult] Routine Comment: Consulting Provider: Justo Parsons Consulting Physician: Justo Parsons Reason for Consult: leucocytosis 04/15/18 16:56 Consult [Physician Consult] Routine Comment: Consulting Provider: Kimberly Ferguson Consulting Physician: Kimberly Ferguson Reason for Consult: anemia 04/16/18 08:50 Consult [Physician Consult] Routine Comment: Consulting Provider: Derrell Mcbride Consulting Physician: Derrell Mcbride Reason for Consult: anemia 04/16/18 11:48 General Surgery Consult Routine Comment: Consulting Provider: Rainer Ayala Consulting Physician: Rainer Ayala Reason for Consult: 7cm complex mass w/ spiculated borders in LLQ on CT Abd/pelvis 04/16/18 12:56 Consult [Physician Consult] Routine Comment: Consulting Provider: Jaylen Vickers Consulting Physician: Jaylen Vickers Reason for Consult: llq necrotic mass vs . abscess, eval bx, drainage 04/17/18 08:43 Consult [Physician Consult] Routine Comment: Consulting Provider: Alec Ugalde Consulting Physician: Alec Ugalde Reason for Consult: L hydro with LLQ mass Hospital Course - Lab Results Lab Results: Micro Results 04/18/18 11:32 Other: Please Indicate Gram Stain - Final 04/18/18 11:32 Other: Please Indicate Body Fluid Culture - Final No growth. 04/18/18 11:32 Other: Please Indicate Anaerobic Culture - Final NO ANAEROBES ISOLATED. 04/18/18 11:32 Other: Please Indicate Fungal Culture - Preliminary 04/14/18 20:47 Blood Blood Culture - Final NO GROWTH AFTER 5 DAYS 04/14/18 20:47 Blood Gram Stain - Final TEST NOT PERFORMED 04/14/18 20:20 Blood Blood Culture - Final NO GROWTH AFTER 5 DAYS 04/14/18 20:20 Blood Gram Stain - Final TEST NOT PERFORMED 04/14/18 18:16 Urine Random Urine Culture - Final No Growth (<1,000 CFU/ML) Most Recent Lab Values WBC 8.9 10^3/uL (4.5-11.0) 04/23/18 06:00 RBC 3.67 10^6/uL (3.5-6.1) 04/23/18 06:00 Hgb 10.0 g/dL (12.0-16.0) L 04/23/18 06:00 Hct 32.4 % (36.0-48.0) L 04/23/18 06:00 MCV 88.3 fl (80.0-105.0) 04/23/18 06:00 MCH 27.2 pg (25.0-35.0) 04/23/18 06:00 MCHC 30.9 g/dl (31.0-37.0) L 04/23/18 06:00 RDW 17.1 % (11.5-14.5) H 04/23/18 06:00 Plt Count 457 10^3/uL (120.0-450.0) H 04/23/18 06:00 MPV 8.6 fl (7.0-11.0) 04/23/18 06:00 Gran % 61.7 % (50.0-68.0) 04/23/18 06:00 Lymph % (Auto) 27.1 % (22.0-35.0) 04/23/18 06:00 [place] % (Auto) 8.7 % (1.0-6.0) H 04/23/18 06:00 Eos % (Auto) 2.3 % (1.5-5.0) 04/23/18 06:00 Baso % (Auto) 0.2 % (0.0-3.0) 04/23/18 06:00 Gran # 5.47 (1.4-6.5) 04/23/18 06:00 Lymph # (Auto) 2.4 (1.2-3.4) 04/23/18 06:00 [place] # (Auto) 0.8 (0.1-0.6) H 04/23/18 06:00 Eos # (Auto) 0.2 (0.0-0.7) 04/23/18 06:00 Baso # (Auto) 0.02 K/mm3 (0.0-2.0) 04/23/18 06:00 Retic Count 2.51 % (0.5-1.5) H 04/16/18 06:00 PT 15.7 SECONDS (9.4-12.5) H 04/18/18 06:25 INR 1.36 04/18/18 06:25 APTT 26.4 Seconds (25.1-36.5) 04/18/18 06:25 Sodium 142 mmol/L (132-148) 04/23/18 06:00 Potassium 3.7 mmol/L (3.6-5.0) 04/23/18 06:00 Chloride 107 mmol/L (98-107) 04/23/18 06:00 Carbon Dioxide 30 mmol/L (21-33) 04/23/18 06:00 Anion Gap 9 (10-20) L 04/23/18 06:00 BUN 12 mg/dL (7-21) 04/23/18 06:00 Creatinine 0.9 mg/dl (0.7-1.2) 04/23/18 06:00 Est GFR ( Amer) > 60 04/23/18 06:00 Est GFR (Non-Af Amer) > 60 04/23/18 06:00 POC Glucose (mg/dL) 148 mg/dL (65-110) H 04/23/18 11:07 Random Glucose 86 mg/dL (70-110) 04/23/18 06:00 Hemoglobin A1c 7.2 % (4.2-6.5) H 04/15/18 11:00 Calcium 8.9 mg/dL (8.4-10.5) 04/23/18 06:00 Phosphorus 3.9 mg/dL (2.5-4.5) 04/20/18 08:20 Magnesium 2.2 mg/dL (1.7-2.2) 04/20/18 08:20 Iron 20 ug/dL (45-180) L 04/16/18 06:00 TIBC 199 ug/dL (265-497) L 04/16/18 06:00 % Saturation 10 % (20-55) L 04/16/18 06:00 Transferrin 140.90 mg/dL (206-381) L 04/16/18 06:30 Vicki Transferrin Receptr 1.64 mg/L (0.76-1.76) 04/16/18 06:30 Ferritin 798.0 ng/mL 04/16/18 06:00 Total Bilirubin 0.3 mg/dL (0.2-1.3) 04/23/18 06:00 AST 36 U/L (14-36) D 04/23/18 06:00 ALT 23 U/L (7-56) 04/23/18 06:00 Alkaline Phosphatase 70 U/L (38-126) 04/23/18 06:00 Lactate Dehydrogenase 561 U/L (333-699) 04/14/18 17:35 Total Creatine Kinase 26 U/L (35-230) L 04/14/18 17:35 Troponin I < 0.01 ng/mL 04/14/18 17:35 NT-Pro-B Natriuret Pep 238 pg/mL (0-450) 04/14/18 17:35 Total Protein 6.8 g/dL (5.8-8.3) 04/23/18 06:00 Albumin 3.2 g/dL (3.0-4.8) 04/23/18 06:00 Globulin 3.6 gm/dL 04/23/18 06:00 Albumin/Globulin Ratio 0.9 (1.1-1.8) L 04/23/18 06:00 Triglycerides 89 mg/dL (35-160) 04/16/18 06:00 Cholesterol 104 mg/dL (130-200) L 04/16/18 06:00 LDL Cholesterol Direct 53 mg/dL (0-129) 04/16/18 06:00 HDL Cholesterol 22 mg/dL (29-60) L 04/16/18 06:00 Carcinoembryonic Ag 2.1 ng/mL (0.0-3.0) 04/16/18 06:00 CA 19-9 Antigen 2.6 U/mL (0-37) 04/16/18 06:00 CA 125 Antigen 16.7 U/mL (0-35) 04/16/18 06:00 Total T3 0.95 ng/mL (0.97-1.69) L 04/14/18 17:35 TSH 3rd Generation 1.94 mIU/mL (0.46-4.68) 04/14/18 17:35 Urine Color Yellow (YELLOW) 04/14/18 18:16 Urine Appearance Clear (CLEAR) 04/14/18 18:16 Urine pH 6.0 (4.7-8.0) 04/14/18 18:16 Ur Specific [place] 1.020 (1.005-1.035) 04/14/18 18:16 Urine Protein Negative mg/dL (<30 mg/dL) 04/14/18 18:16 Urine Glucose (UA) Negative mg/dL (NEGATIVE) 04/14/18 18:16 Urine Ketones Negative mg/dL (NEGATIVE) 04/14/18 18:16 Urine Blood Negative (NEGATIVE) 04/14/18 18:16 Urine Nitrate Negative (NEGATIVE) 04/14/18 18:16 Urine Bilirubin Negative (NEGATIVE) 04/14/18 18:16 Urine Urobilinogen 0.2 E.U./dL (<1 E.U./dL) 04/14/18 18:16 Ur Leukocyte Esterase Negative Emma/uL (NEGATIVE) 04/14/18 18:16 Stool Occult Blood Negative (NEGATIVE) 04/18/18 10:15 BCR/abl Source Not given 04/16/18 09:00 BCR/abl Prior Result Not given 04/16/18 09:00 BCR/abl Interpretation See note 04/16/18 09:00 BCR/abl1 to abl1 % 0.000 (0.000) 04/16/18 09:00 BCR/abl1 to abl1 IS % 0.000 (0.000) 04/16/18 09:00 BCR/abl1 Mnr (p190) Res Not detected 04/16/18 09:00 BCR/abl1 Mjr (p210) Res Not detected 04/16/18 09:00 WB Flow Cytometry Reference test 04/16/18 08:25 Blood Type O POSITIVE 04/17/18 11:20 Blood Type Confirm O POSITIVE 04/17/18 11:50 Antibody Screen Negative 04/17/18 11:20 Crossmatch See Detail 04/17/18 11:20 BBK History Checked No verified bt 04/17/18 11:20 - Hospital Course Hospital Course: Pt seen and examined by me. I have reviewed the note of the medical technician assistant and I agree with it. I have discussed the assessment and plan with the resident. I have reviewed the medications and the last labs. Pt has abscess in the abdomen. She will need surgery and will need to continue with her Abx. Spoke to ID and surgery. She is scheduled this week for her surgery. She will be discharged home.
--- NOTE | 2018-04-24 22:22 | CP.PCM.PN ---
Subjective - Date & Time of Evaluation Date of Evaluation: 04/19/18 Time of Evaluation: 09:00 - Subjective Subjective: Comfortable in bed. No acute distress. underwent CT guided biopsy of right lower abdomen mass. denies pain. Anemia, was refusing PRBC, but agreed. transfused 2 units of PRBC. Objective - Vital Signs/Intake and Output Vital Signs (last 24 hours): Temp Pulse Resp BP Pulse Ox 97.7 F 55 L 20 134/86 97 04/23/18 07:57 04/23/18 07:57 04/23/18 07:57 04/23/18 07:57 04/23/18 07:57 - Labs Labs: 04/23/18 06:00 04/23/18 06:00 PT 15.7 SECONDS (9.4-12.5) H 04/18/18 06:25 INR 1.36 04/18/18 06:25 APTT 26.4 Seconds (25.1-36.5) 04/18/18 06:25 - Constitutional Appears: Well, Non-toxic - Head Exam Head Exam: ATRAUMATIC, NORMAL INSPECTION, NORMOCEPHALIC - Eye Exam Eye Exam: absent: Conjunctival injection, EOMI, Normal appearance, Nystagmus, Periorbital swelling, Periorbital tenderness, PERRL, Scleral icterus - ENT Exam ENT Exam: absent: Mucous Membranes Dry, Mucous Membranes Moist, Normal Exam, Normal External Ear Exam, Normal Oropharynx, TM's Normal Bilaterally - Neck Exam Neck Exam: absent: Full ROM, Lymphadenopathy, Meningismus, Normal Inspection, Tenderness, Thyromegaly - Cardiovascular Exam Cardiovascular Exam: REGULAR RHYTHM, +S1, +S2 - GI/Abdominal Exam GI & Abdominal Exam: absent: Bruit, Distended, Firm, Guarding, Rigid, Soft, Tenderness, Diminished Bowel Sounds, Hernia, Hyperactive Bowel Sounds, Hypoactive Bowel Sounds, Normal Bowel Sounds, Organomegaly, Pulsatile Mass, Rebound, Mass - Extremities Exam Extremities Exam: absent: Calf Tenderness, Full ROM, Joint Swelling, Normal Capillary Refill, Normal Inspection, Pedal Edema, Tenderness - Back Exam Back Exam: absent: CVA tenderness (L), CVA tenderness (R), Full ROM, muscle spasm, NORMAL INSPECTION, paraspinal tenderness, rash noted, tenderness, vertebral tenderness - Neurological Exam Neurological Exam: Alert, Awake, Normal Gait, Oriented x3 - Skin Skin Exam: Pallor Assessment and Plan - Assessment and Plan (Free Text) Assessment: 1. 1. left lower quadrant mass : Biopsy done. Pathology pending. 2. Iron deficiency anemia. s/p IV iron. S/p 2 units of PRBCs. Hb/Hct stable. 3. On IV antibiotics as per ID. Discussed with the patient the plan. Will await biopsy report. In interim to continue IV antibiotics as per ID. Thank you Dr. Fields for allowing us to participate in her care.
== END 2018-04-23 15:53 | disposition home or self-care (01) | DRG 988 ==
LOC: ED 16:47 → ERH 20:31 → 3RNO 21:53 → OBSVTOIN 04-15 16:57
PROVIDERS: ADMIT Internal Medicine Nephrology; ATTEND Internal Medicine Nephrology
PROC: BW2G1ZZ Computerized Tomography (CT Scan) of Pelvic Region using Low Osmolar Contrast (ICD-10-PCS; 2018-04-18)
PROC: 0WBN3ZX Excision of Female Perineum, Percutaneous Approach, Diagnostic (ICD-10-PCS; principal; 2018-04-18 12:30)
PROC: 30233N1 Transfusion of Nonautologous Red Blood Cells into Peripheral Vein, Percutaneous Approach (ICD-10-PCS; 2018-04-19)
DX: I95.1 Orthostatic hypotension (principal); R65.10 Systemic inflammatory response syndrome (SIRS) of non-infectious origin without acute organ dysfunction; N13.30 Unspecified hydronephrosis; K57.20 Diverticulitis of large intestine with perforation and abscess without bleeding; T46.5X5A Adverse effect of other antihypertensive drugs, initial encounter; R19.04 Left lower quadrant abdominal swelling, mass and lump; R42 Dizziness and giddiness; I10 Essential (primary) hypertension; K21.9 Gastro-esophageal reflux disease without esophagitis; E11.9 Type 2 diabetes mellitus without complications; M51.16 Intervertebral disc disorders with radiculopathy, lumbar region; Z87.891 Personal history of nicotine dependence; D72.829 Elevated white blood cell count, unspecified; R79.89 Other specified abnormal findings of blood chemistry; D50.9 Iron deficiency anemia, unspecified; R63.4 Abnormal weight loss; E78.00 Pure hypercholesterolemia, unspecified; E78.5 Hyperlipidemia, unspecified; F41.9 Anxiety disorder, unspecified; I27.20 Pulmonary hypertension, unspecified; K29.70 Gastritis, unspecified, without bleeding; N70.11 Chronic salpingitis; W18.30XA Fall on same level, unspecified, initial encounter; Z79.84 Long term (current) use of oral hypoglycemic drugs; Z82.49 Family history of ischemic heart disease and other diseases of the circulatory system; Z83.3 Family history of diabetes mellitus; Z87.11 Personal history of peptic ulcer disease; Z90.49 Acquired absence of other specified parts of digestive tract; N88.8 Other specified noninflammatory disorders of cervix uteri

== ENCOUNTER 2018-07-11 19:44 | Inpatient (IN) | payer MEDICARE, OTHER ==
[2018-07-11] MEDS ORDERED: Morphine 4 mg/ml ISec IVP STA (20:34)
--- NOTE | 2018-07-11 20:38 | ED PDOC ---
Arrival/HPI - General Chief Complaint: Abdominal Pain Time Seen by Provider: 07/11/18 19:53 Historian: Patient - History of Present Illness Narrative History of Present Illness (Text): 07/11/18 20:23 67 year old female, whose past medical history includes anemia, hypertension, GERD, DM2, lumbar disc herniation and LLE sciatica, presents to the emergency department complaining of constant right lower abdominal pain that began last night associated with chills. Patient reports she was told to go the ER for the evaluation of the pain by Dr. Ferguson. She reports she took 2 Aleve with slight relief. Patient reports she has a mass to the left lower quadrant which was biopsied. Patient denies any fever, chills, chest pain, shortness of breath, nausea, vomiting, diarrhea, urinary symptoms, back pain, neck pain, headache, dizziness, or any other complaints. PMD: Dr. Ada Amaya Time/Duration: 24 hours Symptom Onset: Sudden Symptom Course: Unchanged Activities at Onset: Light Context: Home Past Medical History - Provider Review Nursing Documentation Reviewed: Yes - Infectious Disease Hx of Infectious Diseases: None - Tetanus Immunization Tetanus Immunization: Unknown - Cardiac Hx Cardiac Disorders: Yes Hx Hypertension: Yes - Pulmonary Hx Respiratory Disorders: No - Neurological Hx Neurological Disorder: Yes Hx Dizziness: Yes - HEENT Hx HEENT Disorder: No - Renal Hx Renal Disorder: No - Endocrine/Metabolic Hx Endocrine Disorders: Yes Hx Diabetes Mellitus Type 2: Yes - Hematological/Oncological Hx Blood Disorders: No Other/Comment: L abdominal mass per patient - Integumentary Hx Dermatological Disorder: No - Musculoskeletal/Rheumatological Hx Musculoskeletal Disorders: Yes Hx Arthritis: Yes Hx Falls: Yes (04/14/18) Hx Unsteady Gait: Yes - Gastrointestinal Hx Gastrointestinal Disorders: No - Genitourinary/Gynecological Hx Genitourinary Disorders: No - Psychiatric Hx Psychophysiologic Disorder: No Hx Substance Use: No - Surgical History Hx Appendectomy: Yes Other/Comment: spine surgery. L breast cyst removed. Ovarain cyst removal x6. Tubal ligation - Anesthesia Hx Anesthesia Reactions: No Hx Malignant Hyperthermia: No - Suicidal Assessment Feels Threatened In Home Enviroment: No Family/Social History - Physician Review Nursing Documentation Reviewed: Yes Family/Social History: No Known Family HX Smoking Status: Former Smoker Hx Alcohol Use: Yes (SOCIAL) Hx Substance Use: No Allergies/Home Meds Allergies/Adverse Reactions: Allergies atorvastatin [From Lipitor] Adverse Reaction (Verified 07/12/18 03:16) PAIN Home Medications: Home Meds Medication Instructions Recorded Confirmed DULoxetine [Cymbalta] 30 mg PO DAILY 04/05/14 07/12/18 Esomeprazole Magnesium [Nexium] 40 mg PO DAILY 04/05/14 07/12/18 Celecoxib [celeBREX] 200 mg PO DAILY 02/25/16 02/25/16 Tiotropium [Spiriva] 18 mcg IH DAILY PRN 02/25/16 03/01/16 Amlodipine Besylate 5 mg PO DAILY 07/12/18 07/12/18 Hyzaar 100-12.5 Tablet 100 mg PO DAILY 07/12/18 07/12/18 Pravastatin 20 mg PO DAILY 07/12/18 07/12/18 Review of Systems - Physician Review All systems were reviewed & negative as marked: Yes - Review of Systems Constitutional: absent: Fevers, Other (chills) Respiratory: absent: SOB Cardiovascular: absent: Chest Pain Gastrointestinal: Abdominal Pain. absent: Diarrhea, Nausea, Vomiting Genitourinary Female: absent: Dysuria, Frequency, Hematuria Musculoskeletal: absent: Back Pain, Neck Pain Neurological: absent: Headache, Dizziness Physical Exam Vital Signs Reviewed: Yes Vital Signs Temp Pulse Resp BP Pulse Ox 07/11/18 19:57 98.4 F 73 18 138/80 96 Temperature: Afebrile Blood Pressure: Normal Pulse: Regular Respiratory Rate: Normal Appearance: Positive for: Well-Appearing, Non-Toxic, Comfortable Pain Distress: None Mental Status: Positive for: Alert and Oriented X 3 - Systems Exam Head: Present: Atraumatic, Normocephalic Pupils: Present: PERRL Extroacular Muscles: Present: EOMI Conjunctiva: Present: Normal Mouth: Present: Moist Mucous Membranes Neck: Present: Normal Range of Motion Respiratory/Chest: Present: Clear to Auscultation, Good Air Exchange. No: Respiratory Distress, Accessory Muscle Use Cardiovascular: Present: Regular Rate and Rhythm, Normal S1, S2. No: Murmurs Abdomen: Present: Tenderness (mild tenderness to palpation to the left and right lower quadrant ), Normal Bowel Sounds. No: Distention, Peritoneal Signs Back: Present: Normal Inspection Upper Extremity: Present: Normal Inspection. No: Cyanosis, Edema Lower Extremity: Present: Normal Inspection. No: Edema Neurological: Present: GCS=15, Speech Normal Skin: Present: Warm, Dry, Normal Color. No: Rashes Psychiatric: Present: Alert, Oriented x 3 Medical Decision Making ED Course and Treatment: 07/11/18 20:23 Impression: 67 year old female presents complaining of right lower quadrant pain that began last night associated with chills. Plan: -- CT Abd & Pelvis PO & IV Contrast -- Labs -- Morphine -- Reassess and disposition Prior Visits: Notes and results from previous visits were reviewed. Progress Notes: EKG shows NSR at 73 BPM with normal intervals, normal axis, nonspecific twave changes. Interpreted by me. 07/11/18 20:30 Patient with history of mass which was biopsied and results came back were all negative, was recommended to have surgery, but patient did not want to have surgery here. Dr. Ferguson referred to patient to [facility] for surgery which is scheduled for early July. Patient was admitted last month and was on IV antibiotics for the mass. Patient had a negative urine culture 2 days ago as per Dr. Ferguson. Dr. Ferguson wants a CT Abd/Pelvis PO & IV contrast and labs. Dr. Ferguson also wants patient to be admitted to Dr. Fields's service and a consult with Dr. Quintana ID. CT SCAN OF THE ABDOMEN AND PELVIS WITH CONTRAST. Electronically signed on Jul 12, 2018 1:24:09 AM EDT by: Baldemar Servin M.D IMPRESSION: Diffuse colonic diverticulosis. Significant decrease in the gas-containing fluid collection in the left lower quadrant measuring 3.2x2.7 cm on the current exam. Probably secondary to severe perforation artifact inflamed diverticula. Bilateral fullness of the extrarenal pelves. 07/12/18 01:34 Antibiotics ordered for possible perforated diverticula. Patient agreeable w/POC to admit for further evaluation and management. Case discussed with Dr. Fields who is aware and accepts patient into his service. - Lab Interpretations I have reviewed the lab results: Yes - RAD Interpretation Chief Juvenile Probation Officer: Radiologist - EKG Interpretation Interpreted by ED Physician: Yes Type: 12 lead EKG - Scribe Statement The provider has reviewed the documentation as recorded by the Otoniel Calixto Provider Scribe Attestation: All medical record entries made by the Scribe were at my direction and perso carlee dictated by me. I have reviewed the chart and agree that the record accurately reflects my personal performance of the history, physical exam, medical decision making, and the department course for this patient. I have also personally directed, reviewed, and agree with the discharge instructions and disposition. Disposition/Present on Arrival - Present on Arrival Any Indicators Present on Arrival: No History of DVT/PE: No History of Uncontrolled Diabetes: No Urinary Catheter: No History of Decub. Ulcer: No History Surgical Site Infection Following: None - Disposition Have Diagnosis and Disposition been Completed?: Yes Diagnosis: Abdominal pain, Diverticulitis Disposition: HOSPITALIZED Disposition Time: 01:30 Patient Plan: Admission Condition: STABLE
[2018-07-11 21:14] LABS: BASO # 0.03 K/mm3 (0.0-2.0); BASO % 0.4 % (0.0-3.0); EOS # 0.1 (0.0-0.7); EOS % 1.1 % (1.5-5.0); HEMOGLOBIN 13.4 g/dL (12.0-16.0); LYMPH # 2.5 (1.2-3.4); LYMPH % 33.3 % (22.0-35.0); MEAN CELL VOLUME 92.9 fl (80.0-105.0); MEAN CORPUSCULAR HEMOGLOBIN 29.7 pg (25.0-35.0); MONO # 0.6 (0.1-0.6); MONO % 7.6 % (1.0-6.0); RBC 4.51 10^6/uL (3.5-6.1); RED CELL DISTRIBUTION WIDTH 14.4 % (11.5-14.5); WHITE BLOOD COUNT 7.5 10^3/uL (4.5-11.0)
[2018-07-11 21:23] LABS: ALB/GLOB RATIO 1.2 (1.1-1.8); ALBUMIN 4.1 g/dL (3.0-4.8); AMYLASE 59 U/L (35-125); BLOOD UREA NITROGEN 20 mg/dL (7-21); CALCIUM 9.4 mg/dL (8.4-10.5); GFR NON-AFRICAN AMERICAN > 60; LIPASE 32 U/L (23-300)
[2018-07-11 21:33] LABS: ALT/SGPT 25 U/L (7-56); AST/SGOT 30 U/L (14-36)
[2018-07-11] MEDS ORDERED: Iohexol 350 MG/100 ML VIAL ONE (21:42)
[2018-07-11] MEDS ORDERED: Iohexol 240 (50 ml) ONE (22:33)
[2018-07-12] MEDS ORDERED: Piperacillin/Tazobact 3.375 gm 100 ML IVPB STA (01:36)
[2018-07-12 03:10] VITALS: BMI 32.5
[2018-07-12] MEDS ORDERED: Tiotropium 18 mcg Cap For Inhalation IH PRN (06:25)
[2018-07-12] MEDS: Pantoprazole 40 mg EC Tab PO SCH (06:43)
--- NOTE | 2018-07-12 09:36 | CP.PCM.CON ---
History of Present Illness - History of Present Illness History of Present Illness: General Surgery Consult Note for Dr. Jamie Lujan, PGY1 Consult: Abdominal pain This is a 67 year old female with PMH of LLE sciatica, lumbar disc herniation, DM2, HTN, GERD, iron deficiency anemia, diverticulosis, gastritis and endometriosis presenting to the hospital recommendation by Dr. Ferguson for RLQ abdominal that acute began two days ago. She admits to having intermittent RLQ abdominal pain since 04/2018. Pain is described as sharp, intermittent, worse with food and denies any alleviating factors. She states current symptoms are similar to previous episode of diverticulosis. She was admitted to [facility] on 04/2018 for syncope and CTAP at that time showed 7cm LLQ mass with spiculated borders and pockets of air-fluid. She subsequently had IR guided biopsy which showed fragments of benign ovarian stromal tissue and entrapped tubal epithelium with fibroinflammatory process; no carcinoma identified. Patient had flow cytometry done that revealed no immunophenotypic evidence for abnormal myeloid maturation, increase in blasts, or a lymphoproliferative disorder. Tumor markers CEA, CA19-9, CA125 were within normal limits. Repeat CT Abd/pelvis during that hospital stay revealed the LLQ mass now contained air post biopsy and that there was a communication with the thickened sigmoid colon containing numerous diverticula. Patient was scheduled for sigmoidectomy on 04/25/18 by surgery team, however patient requested a second opinion and declined surgery. Patient states she is scheduled for surgery on 07/23/18 by OBGYN doctor at [facility] to evaluate mass. She states she had EGD and colonoscopy done approximately two years ago at [facility] and results were unremarkable as per patient. She currently denies nausea, vomiting, diarrhea, constipation, fevers, chills, chest pain SOB and blood in the stool. She states her last BM was last night and was regular and is passing flatus. She take colace/miralax and endorses two BM daily. 12 point ROS noted here, otherwise unremarkable. PMD: Dr. Amaya Manager Recovery/oncologist: Dr. Ferguson OBGYN at [facility]: Dr. Chowdary PMH: as above SH: 6 laparoscopic surgeries to remove ovarian cysts, tubal ligation, incidental appendectomy at time of laparascopic ovarian surgery, spine surgery Social: former smoker, quit 5 years ago, 20 year smoking history 1/4 ppd. Denies alcohol and drug use All: atorvastatin FH: NC Past Patient History - Infectious Disease Hx of Infectious Diseases: None - Tetanus Immunizations Tetanus Immunization: Unknown - Past Social History Smoking Status: Former Smoker - CARDIAC Hx Cardiac Disorders: Yes Hx Hypercholesterolemia: Yes Hx Hypertension: Yes Other/Comment: prolapse valve - PULMONARY Hx Respiratory Disorders: Yes Hx Asthma: Yes - NEUROLOGICAL Hx Neurological Disorder: Yes Hx Dizziness: Yes (syncope) - HEENT Hx HEENT Problems: No - RENAL Hx Chronic Kidney Disease: Yes Hx Kidney Stones: Yes - ENDOCRINE/METABOLIC Hx Endocrine Disorders: Yes Hx Diabetes Mellitus Type 2: Yes (diet controlled) - HEMATOLOGICAL/ONCOLOGICAL Hx Blood Disorders: Yes Hx Anemia: Yes (blood transfusion) Other/Comment: L abdominal mass - INTEGUMENTARY Hx Dermatological Problems: No (itchy skin) - MUSCULOSKELETAL/RHEUMATOLOGICAL Hx Falls: No - GASTROINTESTINAL Hx Gastrointestinal Disorders: Yes Hx Gastroesophageal Reflux: Yes Other/Comment: appendecomy. LLQ mass/ biopsy - GENITOURINARY/GYNECOLOGICAL Hx Genitourinary Disorders: Yes Hx Urinary Tract Infection: Yes - PSYCHIATRIC Hx Substance Use: No - SURGICAL HISTORY Hx Surgeries: Yes (left lower quadrant mass biopsy) Hx Appendectomy: Yes Other/Comment: spine surgery- with hardware. L breast cyst removed. Ovarain cyst removal x6. Tubal ligation - ANESTHESIA Hx Anesthesia Reactions: No Hx Malignant Hyperthermia: No Meds Allergies/Adverse Reactions: Allergies Allergy/AdvReac Type Severity Reaction Status Date / Time atorvastatin [From Lipitor] AdvReac PAIN Verified 07/12/18 03:16 - Medications Medications: Current Medications Amlodipine Besylate (Norvasc) 5 mg PO DAILY [facility] Duloxetine HCl (Cymbalta) 30 mg PO DAILY [facility] Gabapentin (Neurontin) 300 mg PO DAILY [facility]; Protocol Hydrochlorothiazide (Microzide) 12.5 mg PO DAILY [facility] Piperacillin Sod/Tazobactam Sod (Zosyn 4.5 Gm In Ns 100ml) 4.5 gm in 100 mls @ 25 mls/hr IVPB Q8 [facility]; Protocol Stop: 07/19/18 14:01 Losartan Potassium (Cozaar) 100 mg PO DAILY [facility] Pantoprazole Sodium (Protonix Ec Tab) 40 mg PO 0600 [facility] Last Admin: 07/12/18 06:43 Dose: 40 mg Tiotropium [place] (Spiriva) 18 mcg IH DAILY PRN PRN Reason: Shortness of Breath Physical Exam - Constitutional Appears: No Acute Distress - Head Exam Head Exam: ATRAUMATIC, NORMAL INSPECTION - Eye Exam Eye Exam: EOMI Pupil Exam: PERRL - ENT Exam ENT Exam: Mucous Membranes Moist - Neck Exam Neck exam: Positive for: Normal Inspection - Respiratory Exam Respiratory Exam: Clear to Auscultation Bilateral. absent: Accessory Muscle Use, Wheezes, Respiratory Distress - Cardiovascular Exam Cardiovascular Exam: REGULAR RHYTHM, +S1, +S2 - GI/Abdominal Exam GI & Abdominal Exam: Normal Bowel Sounds, Soft. absent: Firm, Guarding, Alecia ound, Rigid Additional comments: mild RLQ tenderness appreciated with deep palpation - Extremities Exam Extremities exam: Positive for: normal inspection, pedal pulses present. Negative for: calf tenderness, tenderness - Neurological Exam Neurological exam: Alert, CN II-XII Intact, Oriented x3 - Skin Skin Exam: Normal Color, Warm Results - Vital Signs Recent Vital Signs: Last Vital Signs Temp 97.7 F 07/12/18 08:46 Pulse 57 L 07/12/18 08:46 Resp 20 07/12/18 08:46 BP 126/77 07/12/18 08:46 Pulse Ox 94 L 07/12/18 08:46 - Labs Result Diagrams: 07/11/18 21:00 07/11/18 21:00 Labs: Laboratory Results - last 24 hr 07/11/18 07/11/18 07/12/18 21:00 21:00 07:22 WBC 7.5 RBC 4.51 Hgb 13.4 D Hct 41.9 MCV 92.9 D MCH 29.7 MCHC 32.0 RDW 14.4 Plt Count 224 MPV 10.0 Neut % (Auto) 57.6 Lymph % (Auto) 33.3 Nolan % (Auto) 7.6 H Eos % (Auto) 1.1 L Baso % (Auto) 0.4 Lymph # (Auto) 2.5 Nolan # (Auto) 0.6 Eos # (Auto) 0.1 Baso # (Auto) 0.03 Absolute Neuts (auto) 4.32 Sodium 138 Potassium 3.9 Chloride 102 Carbon Dioxide 30 Anion Gap 10 BUN 20 Creatinine 0.6 L Est GFR ( Amer) > 60 Est GFR (Non-Af Amer) > 60 POC Glucose (mg/dL) 87 Random Glucose 110 Calcium 9.4 Total Bilirubin 0.3 AST 30 ALT 25 Alkaline Phosphatase 74 Total Protein 7.5 Albumin 4.1 Globulin 3.4 Albumin/Globulin Ratio 1.2 Amylase 59 Lipase 32 Assessment & Plan - Assessment and Plan (Free Text) Assessment: This is a 67 year old female with PMH significant for diverticulosis, endometriosis, GERD and pelvic mass presenting to the hospital for management of RLQ abdominal pain. Plan: -CLD -CTAP reviewed, final read pending -patient already scheduled for surgery on 07/23/18 at [facility] by OBGYN to evaluate pelvic mass -no current surgical intervention planned at this time -ID on consult for ?diverticulitis, currently on zosyn -Heme/onc on consult for pelvic mass -Further recommendations per Dr. Ayala
[2018-07-12] MEDS ORDERED: HYZAAR PO SCH (10:00)
--- NOTE | 2018-07-12 11:15 | CARD ---
APPROVED REPORT Date of service: 07/11/2018 EKG Measurement Heart [id number] <Conclusion> Normal sinus rhythm ST & T wave abnormality, consider lateral ischemia Abnormal ECG
--- NOTE | 2018-07-12 11:31 | CT ---
PROCEDURE: CT Abdomen and Pelvis with oral and IV contrast. HISTORY: abd pain COMPARISON: CT abdomen and pelvis with contrast performed 04/22/18 TECHNIQUE: Contiguous axial images of the abdomen and pelvis. Oral and IV contrast was administered. Coronal and Sagittal reformats generated and reviewed. Contrast dose: 100 mL Omnipaque 350 IV Radiation dose: Total exam DLP = 892.25 mGy-cm. This CT exam was performed using one or more of the following dose reduction techniques: Automated exposure control, adjustment of the mA and/or kV according to patient size, and/or use of iterative reconstruction technique. FINDINGS: LOWER THORAX: No visible consolidation, pleural effusion, or pneumothorax. LIVER: Hypoattenuation of the liver compatible with hepatic steatosis. 8 mm and 10 mm right hepatic lobe hypodensities, possibly cysts or hemangiomas. GALLBLADDER AND BILE DUCTS: Unremarkable. PANCREAS: Unremarkable. SPLEEN: Unremarkable. ADRENALS: Unremarkable. KIDNEYS AND URETERS: The kidneys enhance symmetrically. No hydronephrosis or obstructing renal calculus. BLADDER: The urinary bladder appears unremarkable. REPRODUCTIVE: Uterus is present. APPENDIX: No secondary signs of acute appendicitis. BOWEL: The stomach is nondistended. The bowel loops appear within normal limits of caliber without evidence of intestinal obstruction. Diverticulosis. PERITONEUM: No significant free fluid. No definite free air. LYMPH NODES: No bulky lymphadenopathy identified. VASCULATURE: No aortic aneurysm. Mild atherosclerotic calcifications. BONES: Degenerative changes. OTHER FINDINGS: Gas and fluid containing collection re-identified within the left lower quadrant now measuring approximately 2.5 x 3.1 cm, suspected secondary to perforated diverticula. IMPRESSION: Persistent but smaller gas and fluid containing collection in the left lower quadrant presumed secondary to perforated diverticulitis. Hypoattenuation of the liver compatible with hepatic steatosis. 8 mm and 10 mm right hepatic lobe hypodensities, possibly cysts or hemangiomas Preliminary impression was provided by [facility].
--- NOTE | 2018-07-12 13:27 | CP.PCM.CON ---
History of Present Illness - History of Present Illness History of Present Illness: PLEASE NOTE: THIS NOTE IS NOT FINALIZED until it is signed. Reason for consult: RLQ pain CC: RLQ pain This is a 67 year old female with PMH LLQ mass (seen in 04/2018), LLE sciatica, lumbar disc herniation, DM2, HTN, GERD, iron deficiency anemia, diverticulosis, gastritis and endometriosis, is here at [facility] sent by Dr Ferguson for RLQ abdominal pain for past 3 days. Of note, patient was here in 04/2018 for syncope, found to have a 7 cm LLQ abdominal spiculated mass, biopsied and found to be benign ovarian stromal tissue and entrapped tubal epithelium with fibroinflammatory process; no carcinoma identified. Tumor markers CEA, CA19-9, CA125 were within normal limits. Repeat CT Abd/pelvis during that hospital stay revealed the LLQ mass now contained air post biopsy and that there was a communication with the thickened sigmoid colon containing numerous diverticula. Patient was scheduled for sigmoidectomy on 04/25/18 by surgery team, however patient requested a second opinion and declined surgery. Patient states she is scheduled for surgery on 07/23/18 by OBGYN doctor at [facility] to evaluate mass. Patient states that she went to see a GI doctor (unable to recall name) in [facility], did EGD and colonoscopy (which she reports were "normal results"). Patient states that she had been having a good diet with lots of vegetables and fruits, avoiding starches since her discharge in 04/2018. However, for the past week or two, she has been starches and "lots of coffee." Patient started having RLQ, dull, achy pain on Sunday, nonradiating, constant, rates it 4-6/10. Denies association with food, nausea, vomiting, fevers, chills, diarrhea, constipation. Patient reports mild change in color of stools, from green to brown, depending on what she eats. Denies melena, hematochezia. Patient was at Dr Ferguson's office and was told to come to ED for evaluation. Last EGD 02/2016 ([facility]): reflux esophagitis. gastritis. one gastric polyp. duodenal lipoma. Negative for H Pylori. Last Colonoscopy 02/2016: poor bowel prep. one 6 mm hyperplatic rectal polyp. diverticulosis in entire examined colon. Internal hemorrhoids. Repeat colonoscop y in 5-10 years. In ED, patient was afebrile, vitals stable. No leukocytosis, CMP stable. Given morphine 4 mg IVx1, zosyn. Patient reports that she feels well currently, denies pain, tolerating CLD well. Patient states that she has been talking to her Chemical Production Machine Operator at [facility] (Dr Abigail Chowdary) for a possible transfer there. I tried contacting Dr Ferguson, and have left a voicemail (awaiting call back). 12 point ROS obtained and neg, except as per HPI. PMD: Dr. Amaya Hand Picker/oncologist: Dr. Ferguson OBGYN at [facility]: Dr. Chowdary PMH: as above SH: 6 laparoscopic surgeries to remove ovarian cysts, tubal ligation, incidental appendectomy at time of laparascopic ovarian surgery, spine surgery Social: former smoker, quit 5 years ago, 20 year smoking history 1/4 ppd. Denies alcohol and drug use All: atorvastatin FH: NC Review of Systems - Review of Systems All systems: reviewed and no additional remarkable complaints except Review of Systems: as per HPI. Past Patient History - Infectious Disease Hx of Infectious Diseases: None - Tetanus Immunizations Tetanus Immunization: Unknown - Past Social History Smoking Status: Former Smoker - CARDIAC Hx Cardiac Disorders: Yes Hx Hypercholesterolemia: Yes Hx Hypertension: Yes Other/Comment: prolapse valve - PULMONARY Hx Respiratory Disorders: Yes Hx Asthma: Yes - NEUROLOGICAL Hx Neurological Disorder: Yes Hx Dizziness: Yes (syncope) - HEENT Hx HEENT Problems: No - RENAL Hx Chronic Kidney Disease: Yes Hx Kidney Stones: Yes - ENDOCRINE/METABOLIC Hx Endocrine Disorders: Yes Hx Diabetes Mellitus Type 2: Yes (diet controlled) - HEMATOLOGICAL/ONCOLOGICAL Hx Blood Disorders: Yes Hx Anemia: Yes (blood transfusion) Other/Comment: L abdominal mass - INTEGUMENTARY Hx Dermatological Problems: No (itchy skin) - MUSCULOSKELETAL/RHEUMATOLOGICAL Hx Falls: No - GASTROINTESTINAL Hx Gastrointestinal Disorders: Yes Hx Gastroesophageal Reflux: Yes Other/Comment: appendecomy. LLQ mass/ biopsy - GENITOURINARY/GYNECOLOGICAL Hx Genitourinary Disorders: Yes Hx Urinary Tract Infection: Yes - PSYCHIATRIC Hx Substance Use: No - SURGICAL HISTORY Hx Surgeries: Yes (left lower quadrant mass biopsy) Hx Appendectomy: Yes Other/Comment: spine surgery- with hardware. L breast cyst removed. Ovarain cyst removal x6. Tubal ligation - ANESTHESIA Hx Anesthesia Reactions: No Hx Malignant Hyperthermia: No Meds Allergies/Adverse Reactions: Allergies Allergy/AdvReac Type Severity Reaction Status Date / Time atorvastatin [From Lipitor] AdvReac PAIN Verified 07/12/18 03:16 - Medications Medications: Current Medications Amlodipine Besylate (Norvasc) 5 mg PO DAILY [facility] Last Admin: 07/12/18 10:28 Dose: 5 mg Duloxetine HCl (Cymbalta) 30 mg PO DAILY [facility] Last Admin: 07/12/18 10:28 Dose: 30 mg Gabapentin (Neurontin) 300 mg PO DAILY [facility]; Protocol Last Admin: 07/12/18 10:28 Dose: 300 mg Home Med (Home Med) 1 unit PO DIN [facility] Hydrochlorothiazide (Microzide) 12.5 mg PO DAILY [facility] Last Admin: 07/12/18 10:28 Dose: 12.5 mg Piperacillin Sod/Tazobactam Sod (Zosyn 4.5 Gm In Ns 100ml) 4.5 gm in 100 mls @ 25 mls/hr IVPB Q8 [facility]; Protocol Stop: 07/19/18 14:01 Losartan Potassium (Cozaar) 100 mg PO DAILY [facility] Last Admin: 07/12/18 10:27 Dose: 100 mg Pantoprazole Sodium (Protonix Ec Tab) 40 mg PO 0600 [facility] Last Admin: 07/12/18 06:43 Dose: 40 mg Tiotropium [place] (Spiriva) 18 mcg IH DAILY PRN PRN Reason: Shortness of Breath Physical Exam - Constitutional Appears: Non-toxic, No Acute Distress - Head Exam Head Exam: ATRAUMATIC, NORMOCEPHALIC - Eye Exam Eye Exam: EOMI, PERRL. absent: Conjunctival injection, Nystagmus, Scleral icterus Pupil Exam: NORMAL ACCOMODATION, PERRL. absent: Miosis, Mydriatic, Unequal - ENT Exam ENT Exam: Mucous Membranes Moist - Neck Exam Neck exam: Positive for: Full Rom - Respiratory Exam Respiratory Exam: Clear to Auscultation Bilateral, NORMAL BREATHING PATTERN. absent: Accessory Muscle Use, Respiratory Distress, Stridor - Cardiovascular Exam Cardiovascular Exam: RRR, +S1, +S2. absent: Systolic Murmur - GI/Abdominal Exam GI & Abdominal Exam: Normal Bowel Sounds, Soft, Tenderness (mild RLQ abdominal tenderness on deep palpation). absent: Distended, Firm, Guarding, Mass, Rebound, Rigid - Extremities Exam Extremities exam: Positive for: normal inspection. Negative for: calf tenderness, pedal edema - Back Exam Back exam: NORMAL INSPECTION - Neurological Exam Neurological exam: Alert, Oriented x3 - Psychiatric Exam Psychiatric exam: Normal Affect - Skin Skin Exam: Dry, Normal Color, Warm Results - Vital Signs Recent Vital Signs: Last Vital Signs Temp 97.7 F 07/12/18 08:46 Pulse 57 L 07/12/18 10:28 Resp 20 07/12/18 08:46 BP 126/77 07/12/18 10:28 Pulse Ox 94 L 07/12/18 08:46 - Labs Result Diagrams: 07/11/18 21:00 07/11/18 21:00 Labs: Laboratory Results - last 24 hr 07/11/18 07/11/18 07/12/18 21:00 21:00 07:22 WBC 7.5 RBC 4.51 Hgb 13.4 D Hct 41.9 MCV 92.9 D MCH 29.7 MCHC 32.0 RDW 14.4 Plt Count 224 MPV 10.0 Neut % (Auto) 57.6 Lymph % (Auto) 33.3 Payne % (Auto) 7.6 H Eos % (Auto) 1.1 L Baso % (Auto) 0.4 Lymph # (Auto) 2.5 Payne # (Auto) 0.6 Eos # (Auto) 0.1 Baso # (Auto) 0.03 Absolute Neuts (auto) 4.32 Sodium 138 Potassium 3.9 Chloride 102 Carbon Dioxide 30 Anion Gap 10 BUN 20 Creatinine 0.6 L Est GFR ( Amer) > 60 Est GFR (Non-Af Amer) > 60 POC Glucose (mg/dL) 87 Random Glucose 110 Calcium 9.4 Total Bilirubin 0.3 AST 30 ALT 25 Alkaline Phosphatase 74 Total Protein 7.5 Albumin 4.1 Globulin 3.4 Albumin/Globulin Ratio 1.2 Amylase 59 Lipase 32 07/12/18 11:38 WBC RBC Hgb Hct MCV MCH MCHC RDW Plt Count MPV Neut % (Auto) Lymph % (Auto) Payne % (Auto) Eos % (Auto) Baso % (Auto) Lymph # (Auto) Payne # (Auto) Eos # (Auto) Baso # (Auto) Absolute Neuts (auto) Sodium Potassium Chloride Carbon Dioxide Anion Gap BUN Creatinine Est GFR ( Amer) Est GFR (Non-Af Amer) POC Glucose (mg/dL) 98 Random Glucose Calcium Total Bilirubin AST ALT Alkaline Phosphatase Total Protein Albumin Globulin Albumin/Globulin Ratio Amylase Lipase Assessment & Plan - Assessment and Plan (Free Text) Assessment: # RLQ abdominal pain # LLQ mass 2/2 sigmoid mass vs small bowel vs ovarian # Concern for Perforation # Diverticulosis # DM2 # HTN # GERD # iron deficiency anemia # gastritis # endometriosis - CAT abd pelvis with contrast 07/11/18: Diffuse colonic diverticulosis. Significant decrease in the gas-containing fluid collection in the left lower quadrant measuring 2.5 x 3.1 cm, suspected 2/2 perforated diverticula. Hypoattenuation of liver compatible with hepatic steatosis. 8 mm and 10 mm right heaptic lobe hypodensities, possibly cysts or hemangiomas. - CT abd pelvis 04/22/18: Scattered hepatic cysts. LLQ mass contains air post percutaenous biopsy. Communication with thickened sigmoid colon which contains numerous diverticula. Possiblitlity of perforated diverticulitis with abscess formation not excluded. - CT abd pelvis with PO/IV contrast 04/16/18: complex mass in LLQ - 7 cm in diameter, spiculated borders. pockets of air and fluid within mass - necrotic mass vs abscess? Mural thickening in adjacent sigmoid colon. - Appreciate surgical recs, recommend urgent surgical intervention/laparotomy for perforation. - Continue with transfer process. - Further recs per Dr Orozco. Case seen and discussed with Dr Orozco.
--- NOTE | 2018-07-12 14:06 | CP.PCM.APN ---
Subjective - Date & Time of Evaluation Date of Evaluation: 07/12/18 Time of Evaluation: 12:00 - Subjective Subjective: Pt. seen and examined, states RLQ pain is improved, denied nausea, vomiting. Objective - Vital Signs/Intake and Output Vital Signs (last 24 hours): Temp Pulse Resp BP Pulse Ox 97.7 F 57 L 20 126/77 94 L 07/12/18 08:46 07/12/18 10:28 07/12/18 08:46 07/12/18 10:28 07/12/18 08:46 Intake and Output: 07/12/18 07/12/18 06:59 18:59 Intake Total 120 Balance 120 - Medications Medications: Current Medications Amlodipine Besylate (Norvasc) 5 mg PO DAILY [facility] Last Admin: 07/12/18 10:28 Dose: 5 mg Duloxetine HCl (Cymbalta) 30 mg PO DAILY [facility] Last Admin: 07/12/18 10:28 Dose: 30 mg Gabapentin (Neurontin) 300 mg PO DAILY [facility]; Protocol Last Admin: 07/12/18 10:28 Dose: 300 mg Home Med (Home Med) 1 unit PO DIN [facility] Hydrochlorothiazide (Microzide) 12.5 mg PO DAILY [facility] Last Admin: 07/12/18 10:28 Dose: 12.5 mg Piperacillin Sod/Tazobactam Sod (Zosyn 4.5 Gm In Ns 100ml) 4.5 gm in 100 mls @ 25 mls/hr IVPB Q8 [facility]; Protocol Stop: 07/19/18 14:01 Losartan Potassium (Cozaar) 100 mg PO DAILY [facility] Last Admin: 07/12/18 10:27 Dose: 100 mg Pantoprazole Sodium (Protonix Ec Tab) 40 mg PO 0600 [facility] Last Admin: 07/12/18 06:43 Dose: 40 mg Tiotropium [place] (Spiriva) 18 mcg IH DAILY PRN PRN Reason: Shortness of Breath - Labs Labs: 07/11/18 21:00 07/11/18 21:00 - Constitutional Appears: Well - Head Exam Head Exam: NORMOCEPHALIC - Eye Exam Eye Exam: Normal appearance - ENT Exam ENT Exam: Mucous Membranes Moist - Neck Exam Neck Exam: Full ROM - Cardiovascular Exam Cardiovascular Exam: +S1, +S2 - GI/Abdominal Exam GI & Abdominal Exam: Soft - Rectal Exam Rectal Exam: Deferred - Exam Exam: absent: Circumcision, NORMAL INSPECTION, Scrotal Swelling, Testicular Tenderness, Uretheral Discharge, Testicular Vertical Lie, Bladder Distension External exam: absent: Ecchymosis, Erythema, Lacerations, Lesions, NORMAL EXTERNAL EXAM, Swelling Speculum exam: absent: Cervical Discharge, Erythema, Foreign Body, Laceration, NORMAL SPECULUM EXAM, Tissue, Vaginal Bleeding, Vaginal Discharge Bimanual exam: absent: Adenexal Mass, Adnexal, Cervical Motion Tendernes, NORMAL BIMANUAL EXAM, Uterine Enlargement, Uterine Tenderness - Extremities Exam Extremities Exam: Full ROM - Neurological Exam Neurological Exam: Alert, Awake - Psychiatric Exam Psychiatric exam: Normal Affect - Skin Skin Exam: Dry, Intact Assessment and Plan - Assessment and Plan (Free Text) Assessment: ITS Impressions Abdomen/Pelvis CT 07/11/18 00:00 IMPRESSION: Persistent but smaller gas and fluid containing collection in the left lower quadrant presumed secondary to perforated diverticulitis. Hypoattenuation of the liver compatible with hepatic steatosis. 8 mm and 10 mm right hepatic lobe hypodensities, possibly cysts or hemangiomas Preliminary impression was provided by MARLENE Baca. Assessment: 67 year old female, whose past medical history includes anemia, hypertension, GERD, DM2, lumbar disc herniation and LLE sciatica, presents to the emergency department complaining of constant right lower abdominal pain that began last night associated with chills. Patient was advised to go the ER for eval by Dr. Ferguson, admitted now with RLQ pain, Gi consulted, surgery consulted. Plan: 1. RLQ pain Improved since admission, GI consulted, on liquid diet currently, pain rx prn, IV antibiotics for presumed diverticulitis. 2. Fluid collection LLQ/ poss abcess, secondary to perforation( as per cT finding,) Surgery consulted, no surgery recommended now, patient has appointment to f/u with surgeon on 07/23 at [facility]. ID consult pending 3. Hx. Pelvic mass hemonc consult pending with Dr. Ferguson Will continue to monitor clinical status and follow closely
[2018-07-12] MEDS: Piperacill/Tazo 4.5gm in NS 4.5 GM/100 ML BAG IVPB SCH ×2 (14:15→22:07)
--- NOTE | 2018-07-12 15:38 | CP.PCM.HP ---
<Shannon Ramos - Last Filed: 07/12/18 16:10> History of Present Illness - History of Present Illness History of Present Illness: H&P for Dr Fields Service CC: Right sided Abdominal pain HPI: 67 F with a PMHx of DM2, HTN, GERD, Anemia, endometriosis and LLQ mass that presented to the [facility] with complaints of a right sided lower quadrant pain x 3 days. Patient described the pain as dull and achy rated at a 6/10 in intensity and is intermittent and . Patient recently was evaluated for a 7cm LLQ mass, which was biopsied and resulted as no carcionoma present but benign ovarian stromal tissue and entrapped tubal epithelium with fibroinflammatory process in 2018. Patient followed up with a GI in [place] for a colonoscopy for further evaluation and was told that "everything is fine". She was also scheduled for a surgery to remove the mass on 07/23/2018 after initially declining to have a sigmoidectomy during her most recent admission in April. Patient is tolerating po intake, is able to ambulate, and having regular bowel and bladder movements. Patient denied fever, chills, shortness of breath, chest pains, nausea, vomiting, constipation, dysuria, hematuria, melena, or h ematochezia. PMHx:DM2, HTN, GERD, Anemia, endometriosis and LLQ mass PSHx: 6 laparoscopic surgeries to remove ovarian cysts, tubal ligation, incidental appendectomy at time of laparascopic ovarian surgery. As of now planning to have a hysterectomy with Dr. Chowdary (office clerk assistant), Dr. Garza (surgery), and Dr. Dias (GI) SHx: former smoker (5 pack yr hx) FamHx: denied Meds: MAR Reviewed Allergies: atorvastatin Present on Admission - Present on Admission Any Indicators Present on Admission: No Review of Systems - Review of Systems Review of Systems: as per HPI otherwise negative Past Patient History - Infectious Disease Hx of Infectious Diseases: None - Tetanus Immunizations Tetanus Immunization: Unknown - Past Social History Smoking Status: Former Smoker - CARDIAC Hx Cardiac Disorders: Yes Hx Hypercholesterolemia: Yes Hx Hypertension: Yes Other/Comment: prolapse valve - PULMONARY Hx Respiratory Disorders: Yes Hx Asthma: Yes - NEUROLOGICAL Hx Neurological Disorder: Yes Hx Dizziness: Yes (syncope) - HEENT Hx HEENT Problems: No - RENAL Hx Chronic Kidney Disease: Yes Hx Kidney Stones: Yes - ENDOCRINE/METABOLIC Hx Endocrine Disorders: Yes Hx Diabetes Mellitus Type 2: Yes (diet controlled) - HEMATOLOGICAL/ONCOLOGICAL Hx Blood Disorders: Yes Hx Anemia: Yes (blood transfusion) Other/Comment: L abdominal mass - INTEGUMENTARY Hx Dermatological Problems: No (itchy skin) - MUSCULOSKELETAL/RHEUMATOLOGICAL Hx Falls: No - GASTROINTESTINAL Hx Gastrointestinal Disorders: Yes Hx Gastroesophageal Reflux: Yes Other/Comment: appendecomy. LLQ mass/ biopsy - GENITOURINARY/GYNECOLOGICAL Hx Genitourinary Disorders: Yes Hx Urinary Tract Infection: Yes - PSYCHIATRIC Hx Substance Use: No - SURGICAL HISTORY Hx Surgeries: Yes (left lower quadrant mass biopsy) Hx Appendectomy: Yes Other/Comment: spine surgery- with hardware. L breast cyst removed. Ovarain cy st removal x6. Tubal ligation - ANESTHESIA Hx Anesthesia Reactions: No Hx Malignant Hyperthermia: No Meds Allergies/Adverse Reactions: Allergies Allergy/AdvReac Type Severity Reaction Status Date / Time atorvastatin [From Lipitor] AdvReac PAIN Verified 07/12/18 03:16 Physical Exam - Constitutional Appears: No Acute Distress - Head Exam Head Exam: ATRAUMATIC, NORMAL INSPECTION, NORMOCEPHALIC - Eye Exam Eye Exam: EOMI, Normal appearance, PERRL Pupil Exam: NORMAL ACCOMODATION, PERRL - ENT Exam ENT Exam: Mucous Membranes Moist, Normal Exam - Respiratory Exam Respiratory Exam: Clear to Auscultation Bilateral, NORMAL BREATHING PATTERN - Cardiovascular Exam Cardiovascular Exam: REGULAR RHYTHM, +S1, +S2 - GI/Abdominal Exam GI & Abdominal Exam: Normal Bowel Sounds, Soft, Tenderness (diffuse R>L) - Rectal Exam Rectal Exam: Hemorrhoids - Extremities Exam Extremities exam: Positive for: normal inspection - Neurological Exam Neurological exam: Alert, CN II-XII Intact, Normal Gait, Oriented x3, Reflexes Normal - Psychiatric Exam Psychiatric exam: Normal Affect, Normal Mood - Skin Skin Exam: Dry, Intact, Normal Color, Warm Results - Vital Signs Recent Vital Signs: Last Vital Signs Temp 97.7 F 07/12/18 08:46 Pulse 57 L 07/12/18 10:28 Resp 20 07/12/18 08:46 BP 126/77 07/12/18 10:28 Pulse Ox 94 L 07/12/18 08:46 - Labs Result Diagrams: 07/11/18 21:00 07/11/18 21:00 Labs: Laboratory Results - last 24 hr 07/11/18 07/11/18 07/12/18 21:00 21:00 07:22 WBC 7.5 RBC 4.51 Hgb 13.4 D Hct 41.9 MCV 92.9 D MCH 29.7 MCHC 32.0 RDW 14.4 Plt Count 224 MPV 10.0 Neut % (Auto) 57.6 Lymph % (Auto) 33.3 [place]land % (Auto) 7.6 H Eos % (Auto) 1.1 L Baso % (Auto) 0.4 Lymph # (Auto) 2.5 [place] # (Auto) 0.6 Eos # (Auto) 0.1 Baso # (Auto) 0.03 Absolute Neuts (auto) 4.32 Sodium 138 Potassium 3.9 Chloride 102 Carbon Dioxide 30 Anion Gap 10 BUN 20 Creatinine 0.6 L Est GFR ( Amer) > 60 Est GFR (Non-Af Amer) > 60 POC Glucose (mg/dL) 87 Random Glucose 110 Calcium 9.4 Total Bilirubin 0.3 AST 30 ALT 25 Alkaline Phosphatase 74 Total Protein 7.5 Albumin 4.1 Globulin 3.4 Albumin/Globulin Ratio 1.2 Amylase 59 Lipase 32 07/12/18 11:38 WBC RBC Hgb Hct MCV MCH MCHC RDW Plt Count MPV Neut % (Auto) Lymph % (Auto) [place] % (Auto) Eos % (Auto) Baso % (Auto) Lymph # (Auto) [place] # (Auto) Eos # (Auto) Baso # (Auto) Absolute Neuts (auto) Sodium Potassium Chloride Carbon Dioxide Anion Gap BUN Creatinine Est GFR ( Amer) Est GFR (Non-Af Amer) POC Glucose (mg/dL) 98 Random Glucose Calcium Total Bilirubin AST ALT Alkaline Phosphatase Total Protein Albumin Globulin Albumin/Globulin Ratio Amylase Lipase Assessment & Plan - Assessment and Plan (Free Text) Assessment: 1. Benign LLQ Mass 2. ?Perforated diverticula 3. Diverticulosis 4. DM2 5. HTN 6. GERD 7. Iron deficiency Anemia 8. Gastritis Plan: Patient is comfortable. She is on abx, zosyn for presumed diverticulitis, ID is on board. GI was consulted, Dr. Orozco, advanced to Liquid diet. Surgery Dr metcalf was consulted for possible diverticula perforation as demonstrated on CT abd. During last admission there was concern of a a communication with the thickened sigmoid colon containing numerous diverticula by s/p biopsy. Patient was scheduled for sigmoidectomy on 04/25/18 by surgery team, however patient requested a second opinion and declined surgery. Patient states she is scheduled for surgery on 07/23/18 by OBGYN doctor at [facility] to evaluate mass. As per Dr. Ferguson, oncologist, patient is now for transfer to [facility] for possible gynecological procedure not offered at [facility]. <Lonny Fields S - Last Filed: 07/12/18 19:27> Results - Vital Signs Recent Vital Signs: Last Vital Signs Temp 98 F 07/12/18 16:31 Pulse 59 L 07/12/18 16:31 Resp 18 07/12/18 16:31 BP 114/71 07/12/18 16:31 Pulse Ox 94 L 07/12/18 16:31 - Labs Result Diagrams: 07/11/18 21:00 07/11/18 21:00 Labs: Laboratory Results - last 24 hr 07/11/18 07/11/18 07/12/18 21:00 21:00 07:22 WBC 7.5 RBC 4.51 Hgb 13.4 D Hct 41.9 MCV 92.9 D MCH 29.7 MCHC 32.0 RDW 14.4 Plt Count 224 MPV 10.0 Neut % (Auto) 57.6 Lymph % (Auto) 33.3 [place] % (Auto) 7.6 H Eos % (Auto) 1.1 L Baso % (Auto) 0.4 Lymph # (Auto) 2.5 [place] # (Auto) 0.6 Eos # (Auto) 0.1 Baso # (Auto) 0.03 Absolute Neuts (auto) 4.32 Sodium 138 Potassium 3.9 Chloride 102 Carbon Dioxide 30 Anion Gap 10 BUN 20 Creatinine 0.6 L Est GFR ( Amer) > 60 Est GFR (Non-Af Amer) > 60 POC Glucose (mg/dL) 87 Random Glucose 110 Calcium 9.4 Total Bilirubin 0.3 AST 30 ALT 25 Alkaline Phosphatase 74 Total Protein 7.5 Albumin 4.1 Globulin 3.4 Albumin/Globulin Ratio 1.2 Amylase 59 Lipase 32 07/12/18 07/12/18 11:38 15:51 WBC RBC Hgb Hct MCV MCH MCHC RDW Plt Count MPV Neut % (Auto) Lymph % (Auto) [place] % (Auto) Eos % (Auto) Baso % (Auto) Lymph # (Auto) [place] # (Auto) Eos # (Auto) Baso # (Auto) Absolute Neuts (auto) Sodium Potassium Chloride Carbon Dioxide Anion Gap BUN Creatinine Est GFR ( Amer) Est GFR (Non-Af Amer) POC Glucose (mg/dL) 98 112 H Random Glucose Calcium Total Bilirubin AST ALT Alkaline Phosphatase Total Protein Albumin Globulin Albumin/Globulin Ratio Amylase Lipase Assessment & Plan - Assessment and Plan (Free Text) Assessment: Pt seen and examined by me. I have reviewed the note of the medical technologist and I agree with it. I have discussed the assessment and plan with the resident. I have reviewed the medications and the last labs.
[2018-07-12] MEDS: PRAVASTATIN 20 MG PO SCH (17:47)
[2018-07-12] MEDS ORDERED: Lactated Ringer's 1,000 ML IV SCH (19:30)
--- NOTE | 2018-07-12 22:48 | CON ---
DATE: 07/12/2018 LOCATION: The patient was seen earlier today in [facility], bed 1. CHIEF COMPLAINT: Abdominal pain times several days. HISTORY OF PRESENT ILLNESS: This is a 67-year-old female with obesity with a BMI of 32 and with past medical history significant for diabetes mellitus, hypertension, GERD, left lower extremity sciatica, history of syncope with no new knowledge. She also has had a left breast cyst surgery in the past and a spinal surgery, who is a longtime smoker who recently discontinued cigarettes. She was admitted through the emergency room with a diagnosis of diverticulitis. The patient states that she had a mass that was biopsied by a CT-guided biopsy in 04/2018, it was done by Dr. Jaylen Vickers and basically a biopsy of the left pelvic mass, which review of pathology, review of the patient's result supported benign ovarian cortex and fallopian tube and now admitted with abdominal pain through the emergency room. The patient was seen by Dr. Rajeev Rizo in the emergency room. The patient does have a history of anemia, hypertension, GERD, diabetes, lumbar disc disease and sciatica complaining of the patient's abdominal pain, which is right sided associated with chills and treated with pain medication without improvement. REVIEW OF SYSTEMS: Reveals no fevers. Of course she did have chills. No chest pain. No shortness of breath. No cough. No hemoptysis. No vomiting. No diarrhea. No new back pain. No neck pain. No dizziness. Review of systems reveals a 12-point review of systems was performed. PAST MEDICAL HISTORY: Significant for left lower extremity sciatica, diabetes, obesity, BMI of 32, hypertension, GERD, anemia, and chronic lumbar disease. PAST SURGICAL HISTORY: Significant for pelvic biopsy in April which was negative. Spinal surgery, left breast cyst surgery. ALLERGIES: THE PATIENT IS ALLERGIC TO ATORVASTATIN. MEDICATIONS: At home include the patient to be on Cymbalta, Nexium, pravastatin, Neurontin. PHYSICAL EXAMINATION GENERAL: The patient is in bed, no acute distress, and answering questions. She is awake, alert, and oriented. VITAL SIGNS: Temperature of 98, pulse of 66, respiratory rate of 20, blood pressure is 130/80. HEENT: Unremarkable. NECK: Supple. LUNGS: Decreased breath sounds. HEART: Normal S1 and S2. ABDOMEN: Soft. There is right lower quadrant tenderness. No rebound. No guarding. No masses. LABORATORY DATA: Reveals a white count of 7.5 and hemoglobin is 13. Chemistries are noted. Microbiology is pending. The patient also had a CAT scan of the abdomen and pelvis and this revealed the patient to have persistent swallowed gas and fluid new collection in the left lower quadrant presumed secondary to perforated diverticulitis and also her pain is in the right side, so it is unclear if she has diverticulitis on the right side. ASSESSMENT AND PLAN: A 67-year-old diabetic and hypertensive female with obesity, gastroesophageal reflux disease and anemia presenting with acute diverticulitis that was treated with Zosyn. Gastroenterology and surgical consultation has been requested. We will recommend a Gastroenterology consult in addition to a surgical consult. We will treat the patient with Zosyn. We will follow with you. Justo Parsons MD
--- NOTE | 2018-07-13 02:55 | HP ---
DATE OF EXAM: 07/12/2018 HISTORY OF PRESENT ILLNESS: The patient was seen and examined. I do agree with the note of the medical records tech. I was involved in the plan of care. The patient was admitted to the hospital because of abdominal pain. She recently was diagnosed with left lower quadrant mass that was 7 cm. Biopsy did not show carcinoma, it was benign ovarian stromal tissue that was entrapping the tubular epithelium with fibroinflammatory process, this biopsy result was in 04/2018. The patient had gone to [facility] in [place] and had seen CHIEF MEDICAL PHYSICIST and there were plans for the patient to get surgery by Dr. Chowdary and Dr. Garza. The patient had a CAT scan that showed possible diverticuli that perforated on the CAT scan. The patient's oncologist Dr. Ferguson has been following the patient. She reached out to [facility] and her surgeon and the patient has been accepted to [facility]. She had a history of diabetes, hypertension, and GERD. The patient is currently comfortable. She is not complaining of any pain. She was seen by Dr. Ayala's team form Surgery. She was also seen by GI, I do appreciate their input. There is a right hepatic lobe density most likely a cyst. The patient will most likely need surgical intervention. We will await the patient to get transferred. The patient will be n.p.o. I will place the patient on IV fluids. She is on Zosyn for antibiotics. Lonny Fields MD
[2018-07-13] MEDS: Pantoprazole 40 mg EC Tab PO SCH (05:38)
[2018-07-13] MEDS: Piperacill/Tazo 4.5gm in NS 4.5 GM/100 ML BAG IVPB SCH ×3 (05:38→22:02)
[2018-07-13 08:17] VITALS: RESP 20
--- NOTE | 2018-07-13 08:59 | CP.PCM.PN ---
Subjective - Date & Time of Evaluation Date of Evaluation: 07/13/18 Time of Evaluation: 07:00 - Subjective Subjective: GENERAL SURGERY PROGRESS NOTE FOR DR. BRITTON Patient seen and examined at bedside. She denies abdominal pain. Denies nausea or vomiting. Had a non bloody BM yesterday. A transfer is being initiated to [place] where she has surgery scheduled. Objective - Vital Signs/Intake and Output Vital Signs (last 24 hours): Temp Pulse Resp BP Pulse Ox 98.3 F 63 20 127/78 94 L 07/13/18 06:00 07/13/18 06:00 07/13/18 06:00 07/13/18 06:00 07/13/18 06:00 Intake and Output: 07/13/18 07/13/18 06:59 18:59 Intake Total 300 Balance 300 - Medications Medications: Current Medications Amlodipine Besylate (Norvasc) 5 mg PO DAILY [facility] Last Admin: 07/12/18 10:28 Dose: 5 mg Duloxetine HCl (Cymbalta) 30 mg PO DAILY [facility] Last Admin: 07/12/18 10:28 Dose: 30 mg Gabapentin (Neurontin) 300 mg PO DAILY [facility]; Protocol Last Admin: 07/12/18 10:28 Dose: 300 mg Home Med (Home Med) 1 unit PO DIN [facility] Last Admin: 07/12/18 17:47 Dose: 1 unit Hydrochlorothiazide (Microzide) 12.5 mg PO DAILY [facility] Last Admin: 07/12/18 10:28 Dose: 12.5 mg Piperacillin Sod/Tazobactam Sod (Zosyn 4.5 Gm In Ns 100ml) 4.5 gm in 100 mls @ 25 mls/hr IVPB Q8 [facility]; Protocol Stop: 07/19/18 14:01 Last Admin: 07/13/18 05:38 Dose: 25 mls/hr Lactated Ringer's (Lactated Ringer's) 1,000 mls @ 50 mls/hr IV .Q20H [facility] Stop: 07/14/18 11:29 Last Admin: 07/12/18 22:10 Dose: 50 mls/hr Losartan Potassium (Cozaar) 100 mg PO DAILY [facility] Last Admin: 07/12/18 10:27 Dose: 100 mg Pantoprazole Sodium (Protonix Ec Tab) 40 mg PO 0600 [facility] Last Admin: 07/13/18 05:38 Dose: 40 mg Tiotropium [place] (Spiriva) 18 mcg IH DAILY PRN PRN Reason: Shortness of Breath - Labs Labs: 07/11/18 21:00 07/11/18 21:00 - Constitutional Appears: Non-toxic, No Acute Distress - Head Exam Head Exam: ATRAUMATIC, NORMAL INSPECTION - Respiratory Exam Respiratory Exam: NORMAL BREATHING PATTERN. absent: Respiratory Distress - Cardiovascular Exam Cardiovascular Exam: +S1, +S2 - GI/Abdominal Exam GI & Abdominal Exam: Soft, Tenderness (very mild tenderness in RLQ on deep palpation). absent: Distended, Firm, Guarding, Rigid, Rebound - Neurological Exam Neurological Exam: Alert, Awake, Oriented x3 - Psychiatric Exam Psychiatric exam: Normal Affect, Normal Mood - Skin Skin Exam: Normal Color, Warm Assessment and Plan - Assessment and Plan (Free Text) Assessment: 67 yo female with PMHx significant for diverticulosis, endometriosis, GERD and pelvic mass with CT showing diverticulosis and a persistent but smaller gas and fluid containing collection in LLQ compared to previous admission in April. Surgery team had recommended surgery at that time and patient requested second opinion and is currently scheduled for surgery on 07/23/18 at [facility] Plan: - Pt with no peritoneal signs, benign abdomen, stable vitals, No acute surgical intervention necessary - Tolerating CLD, may advance diet as tolerated - ID following - Pending transfer to [facility] - Discussed plan with Dr. Jamie Li PGY-4
--- NOTE | 2018-07-13 10:10 | DS ---
HISTORY OF PRESENT ILLNESS: This is a 67-year-old female who was coming to the hospital complaining of abdominal pain. The patient was seen by surgery and was found to have a gas containing collection in the left lower quadrant. She is scheduled to go to surgery. She is going to be transfer to for her evaluation and intervention. She was seen surgeons there and there was plans undergo surgery. The patient has been accepted and was awaiting for transfer. The patient has no complaints of any chest pain. No shortness of breath. No headaches or dizziness. PHYSICAL EXAMINATION: VITAL SIGNS: Temperature is 98.3, pulse of 63, blood pressure 127/78, respirations 20 and O2 saturation 94%. GENERAL: The patient is lying in bed, flat, comfortable. HEENT: No oral lesion. Anicteric sclerae. Moist mucosa. NECK: No JVD, adenopathy, or thyromegaly. CARDIOVASCULAR: S1 and S2, regular. No murmurs, rubs, or gallops. LUNGS: Clear to auscultation bilaterally. No wheeze, rales, or rhonchi. ABDOMEN: Bowel sounds are positive, soft, nontender and nondistended. EXTREMITIES: No cyanosis, clubbing or edema. ASSESSMENT: 1. Left lower quadrant mass. 2. Diabetes type II. 3. Hypertension. 4. Gastroesophageal reflux disease. PLAN: The patient is currently comfortable. She is being followed by , I did speak to them. The patient is going to continue Losartan for hypertension. She is on Cymbalta for anxiety and depression. She is on lactated Ringer's. She is on hydrochlorothiazide for her hypertension as well. She is on Zosyn for antibiotics. She is waiting to be discharge to [facility]. CONDITION: Stable. ACTIVITIES: Increase as tolerated. Lonny Fields MD
--- NOTE | 2018-07-13 13:12 | PN ---
DATE: 07/13/2018 SUBJECTIVE: The patient is in bed in no acute distress. She was seen earlier this morning in room 376. PHYSICAL EXAMINATION: VITAL SIGNS: Temperature is 97, blood pressure is 114/70, respiratory rate of 16. HEENT: Unremarkable. NECK: Supple. LUNGS: Have decreased breath sounds. HEART are normal S1, S2. ABDOMEN: Soft, nontender. No organomegaly. No rebound. No guarding. No masses. ASSESSMENT AND PLAN: This is a 67-year-old with diabetes, hypertension, female obesity, gastroesophageal reflux disease, anemia and questionable acute diverticulitis on Zosyn, had a left lower quadrant mass. The patient's case was discussed with Dr. Fields, the patient is a [facility]. Justo Parsons MD
--- NOTE | 2018-07-13 14:36 | CP.PCM.PN ---
<Paul Jain - Last Filed: 07/13/18 14:33> Subjective - Date & Time of Evaluation Date of Evaluation: 07/13/18 Time of Evaluation: 07:40 - Subjective Subjective: PGY5 GI Follow-up Pt seen and examined bedside has some abd discomfort awaiting transter to [facility] ROS: 12 point ROS conducted, neg other than above Objective - Vital Signs/Intake and Output Vital Signs (last 24 hours): Temp Pulse Resp BP Pulse Ox 98.3 F 63 20 127/78 94 L 07/13/18 06:00 07/13/18 06:00 07/13/18 06:00 07/13/18 06:00 07/13/18 06:00 Intake and Output: 07/13/18 07/13/18 06:59 18:59 Intake Total 300 Balance 300 - Medications Medications: Current Medications Amlodipine Besylate (Norvasc) 5 mg PO DAILY [facility] Last Admin: 07/13/18 09:43 Dose: 5 mg Duloxetine HCl (Cymbalta) 30 mg PO DAILY [facility] Last Admin: 07/13/18 09:43 Dose: 30 mg Gabapentin (Neurontin) 300 mg PO DAILY [facility]; Protocol Last Admin: 07/13/18 09:43 Dose: 300 mg Home Med (Home Med) 1 unit PO DIN [facility] Last Admin: 07/12/18 17:47 Dose: 1 unit Hydrochlorothiazide (Microzide) 12.5 mg PO DAILY [facility] Last Admin: 07/13/18 09:43 Dose: 12.5 mg Piperacillin Sod/Tazobactam Sod (Zosyn 4.5 Gm In Ns 100ml) 4.5 gm in 100 mls @ 25 mls/hr IVPB Q8 [facility]; Protocol Stop: 07/19/18 14:01 Last Admin: 07/13/18 13:19 Dose: 25 mls/hr Lactated Ringer's (Lactated Ringer's) 1,000 mls @ 50 mls/hr IV .Q20H [facility] Stop: 07/14/18 11:29 Last Admin: 07/12/18 22:10 Dose: 50 mls/hr Losartan Potassium (Cozaar) 100 mg PO DAILY [facility] Last Admin: 07/13/18 09:43 Dose: 100 mg Pantoprazole Sodium (Protonix Ec Tab) 40 mg PO 0600 [facility] Last Admin: 07/13/18 05:38 Dose: 40 mg Tiotropium [place] (Spiriva) 18 mcg IH DAILY PRN PRN Reason: Shortness of Breath - Labs Labs: 07/11/18 21:00 07/11/18 21:00 - Constitutional Appears: No Acute Distress, Chronically Ill - Head Exam Head Exam: ATRAUMATIC, NORMOCEPHALIC - ENT Exam ENT Exam: Mucous Membranes Moist - Neck Exam Neck Exam: Normal Inspection - Respiratory Exam Respiratory Exam: Clear to Ausculation Bilateral, NORMAL BREATHING PATTERN. absent: Rales, Rhonchi, Wheezes, Respiratory Distress - Cardiovascular Exam Cardiovascular Exam: REGULAR RHYTHM, +S1, +S2 - GI/Abdominal Exam GI & Abdominal Exam: Soft, Tenderness, Normal Bowel Sounds. absent: Distended, Firm, Guarding, Rigid, Organomegaly - Exam External exam: Erythema - Extremities Exam Extremities Exam: absent: Joint Swelling - Neurological Exam Neurological Exam: Alert, Awake, Oriented x3 - Psychiatric Exam Psychiatric exam: Normal Affect, Normal Mood - Skin Skin Exam: Dry, Intact, Normal Color, Warm Assessment and Plan - Assessment and Plan (Free Text) Assessment: # RLQ abdominal pain # LLQ mass 2/2 sigmoid mass vs small bowel vs ovarian # Concern for Perforation # Diverticulosis # DM2 # HTN # GERD # iron deficiency anemia # gastritis # endometriosis - CAT abd pelvis with contrast 07/11/18: Diffuse colonic diverticulosis. Significant decrease in the gas-containing fluid collection in the left lower quadrant measuring 2.5 x 3.1 cm, suspected 2/2 perforated diverticula. Hypoattenuation of liver compatible with hepatic steatosis. 8 mm and 10 mm right heaptic lobe hypodensities, possibly cysts or hemangiomas. - CT abd pelvis 04/22/18: Scattered hepatic cysts. LLQ mass contains air post percutaenous biopsy. Communication with thickened sigmoid colon which contains numerous diverticula. Possiblitlity of perforated diverticulitis with abscess formation not excluded. - CT abd pelvis with PO/IV contrast 04/16/18: complex mass in LLQ - 7 cm in diameter, spiculated borders. pockets of air and fluid within mass - necrotic mass vs abscess? Mural thickening in adjacent sigmoid colon. - Appreciate surgical recs - awaiting transfer to [facility] Case seen and discussed with Dr Orozco. <[place] Orozco V - Last Filed: 07/14/18 00:14> Objective - Vital Signs/Intake and Output Vital Signs (last 24 hours): Temp Pulse Resp BP Pulse Ox 98.3 F 63 20 127/78 94 L 07/13/18 06:00 07/13/18 06:00 07/13/18 06:00 07/13/18 06:00 07/13/18 06:00 - Medications Medications: Current Medications Amlodipine Besylate (Norvasc) 5 mg PO DAILY [facility] Last Admin: 07/13/18 09:43 Dose: 5 mg Duloxetine HCl (Cymbalta) 30 mg PO DAILY [facility] Last Admin: 07/13/18 09:43 Dose: 30 mg Gabapentin (Neurontin) 300 mg PO DAILY [facility]; Protocol Last Admin: 07/13/18 09:43 Dose: 300 mg Home Med (Home Med) 1 unit PO DIN [facility] Last Admin: 07/13/18 17:37 Dose: 1 unit Hydrochlorothiazide (Microzide) 12.5 mg PO DAILY [facility] Last Admin: 07/13/18 09:43 Dose: 12.5 mg Piperacillin Sod/Tazobactam Sod (Zosyn 4.5 Gm In Ns 100ml) 4.5 gm in 100 mls @ 25 mls/hr IVPB Q8 [facility]; Protocol Stop: 07/19/18 14:01 Last Admin: 07/13/18 22:02 Dose: 25 mls/hr Lactated Ringer's (Lactated Ringer's) 1,000 mls @ 50 mls/hr IV .Q20H [facility] Stop: 07/14/18 11:29 Last Admin: 07/12/18 22:10 Dose: 50 mls/hr Losartan Potassium (Cozaar) 100 mg PO DAILY [facility] Last Admin: 07/13/18 09:43 Dose: 100 mg Pantoprazole Sodium (Protonix Ec Tab) 40 mg PO 0600 [facility] Last Admin: 07/13/18 05:38 Dose: 40 mg Tiotropium [place] (Spiriva) 18 mcg IH DAILY PRN PRN Reason: Shortness of Breath - Labs Labs: 07/11/18 21:00 07/11/18 21:00 Attending/Attestation - Attestation I have personally seen and examined this patient.: Yes I have fully participated in the care of the patient.: Yes I have reviewed all pertinent clinical information, including history, physical exam and plan: Yes
[2018-07-13] MEDS: PRAVASTATIN 20 MG PO SCH (17:37)
--- NOTE | 2018-07-14 04:54 | CP.PCM.PN ---
Subjective - Date & Time of Evaluation Date of Evaluation: 07/14/18 Time of Evaluation: 04:51 - Subjective Subjective: to be dictated. Patient seen Rx,tylenol 650 Objective - Vital Signs/Intake and Output Vital Signs (last 24 hours): Temp Pulse Resp BP Pulse Ox 98.6 F 64 20 123/76 97 07/14/18 00:35 07/14/18 00:35 07/14/18 00:35 07/14/18 00:35 07/14/18 00:35 - Medications Medications: Current Medications Amlodipine Besylate (Norvasc) 5 mg PO DAILY [facility] Last Admin: 07/13/18 09:43 Dose: 5 mg Duloxetine HCl (Cymbalta) 30 mg PO DAILY [facility] Last Admin: 07/13/18 09:43 Dose: 30 mg Gabapentin (Neurontin) 300 mg PO DAILY [facility]; Protocol Last Admin: 07/13/18 09:43 Dose: 300 mg Home Med (Home Med) 1 unit PO DIN [facility] Last Admin: 07/13/18 17:37 Dose: 1 unit Hydrochlorothiazide (Microzide) 12.5 mg PO DAILY [facility] Last Admin: 07/13/18 09:43 Dose: 12.5 mg Piperacillin Sod/Tazobactam Sod (Zosyn 4.5 Gm In Ns 100ml) 4.5 gm in 100 mls @ 25 mls/hr IVPB Q8 [facility]; Protocol Stop: 07/19/18 14:01 Last Admin: 07/13/18 22:02 Dose: 25 mls/hr Lactated Ringer's (Lactated Ringer's) 1,000 mls @ 50 mls/hr IV .Q20H [facility] Stop: 07/14/18 11:29 Last Admin: 07/12/18 22:10 Dose: 50 mls/hr Losartan Potassium (Cozaar) 100 mg PO DAILY [facility] Last Admin: 07/13/18 09:43 Dose: 100 mg Pantoprazole Sodium (Protonix Ec Tab) 40 mg PO 0600 [facility] Last Admin: 07/13/18 05:38 Dose: 40 mg Tiotropium [place] (Spiriva) 18 mcg IH DAILY PRN PRN Reason: Shortness of Breath - Labs Labs: 07/11/18 21:00 07/11/18 21:00
[2018-07-14] MEDS: Pantoprazole 40 mg EC Tab PO SCH (06:35)
[2018-07-14] MEDS: Piperacill/Tazo 4.5gm in NS 4.5 GM/100 ML BAG IVPB SCH (06:36)
[2018-07-14 08:50] VITALS: BP 142/83; PULSE 60; TEMP 98; O2SAT 98
--- NOTE | 2018-07-14 12:42 | PN ---
DATE: 07/14/2018 SUBJECTIVE: The patient seen earlier 376, bed 2, she states her abdominal pain is improved. She is doing better. No nausea, no fevers and chills. PHYSICAL EXAMINATION VITAL SIGNS: On exam temperature is 98, blood pressure is 140/80, respiratory rate 20 and heart rate of 60. HEENT: Unremarkable. NECK: Supple. LUNGS: Have decreased breath sounds. HEART: Normal S1 and S2. ABDOMEN: Soft and nontender. No rebound or guarding. LABORATORY EXAMINATION: Reveals a white count of 7.5 and hemoglobin of 13. Chemistries reveals the patient's creatinine is 0.6. Microbiology is not available. Review of orders reveals the patient to be on Zosyn. ASSESSMENT AND PLAN: This is a 67-year-old female who has history of diabetes, hypertension, obesity, gastroesophageal reflux disease, anemia, has left lower quadrant mass which had a biopsy and questionable acute diverticulitis. Currently on Zosyn. Case discussed with Dr. Orozco, the Clerical Aide Teacher, who believes it is inflammatory process and had left quadrant mass and referred pain to the right abdomen: We will continue Zosyn. The patient is to be transferred to [facility], awaiting for transfer for further intervention. Justo Parsons MD
--- NOTE | 2018-07-14 13:19 | PN ---
DATE: 07/14/2018 SUBJECTIVE: The patient has no complaints of any chest pain or shortness of breath. No headaches. PHYSICAL EXAMINATION: VITAL SIGNS: Temperature is 98, pulse of 60, blood pressure of 142/83, and respirations 20. GENERAL: The patient is lying in bed, flat, comfortable. HEENT: No oral lesion. Anicteric sclerae. Moist mucosa. NECK: No JVD, adenopathy, or thyromegaly. CARDIOVASCULAR: S1 and S2, regular. No murmurs, rubs, or gallops. LUNGS: Clear to auscultation bilaterally. No wheeze, rales, or rhonchi. ABDOMEN: Bowel sounds are positive, soft, nontender and nondistended. EXTREMITIES: No cyanosis, clubbing or edema. LABORATORY DATA: White count of 7.5, hemoglobin 13.4, and creatinine is 0.6. ASSESSMENT: 1. Left lower quadrant mass. 2. Diabetes type 2. 3. Hypertension. 4. Gastroesophageal reflux disease. PLAN: The patient is currently on lactated Ringer's. The patient is on Cymbalta, this will be continued. She is on losartan for hypertension. She is on Norvasc for hypertension. She is receiving IV antibiotics of Zosyn. She is on a liquid diet. I do speak to Infectious Disease regarding the case as well as GI. The patient is waiting to be discharged to [facility] for intervention by her surgeons. Lonny Fields MD
--- NOTE | 2018-07-14 15:10 | CP.PCM.PN ---
<Paul Jain - Last Filed: 07/14/18 15:11> Subjective - Date & Time of Evaluation Date of Evaluation: 07/14/18 Time of Evaluation: 07:40 - Subjective Subjective: PGY5 GI Follow-up Pt seen and examined bedside Denies any abd pain tolerating diet denies any nausea, vomiting or diarrhea ROS: 12 point ROS conducted, neg other than above Objective - Vital Signs/Intake and Output Vital Signs (last 24 hours): Temp Pulse Resp BP Pulse Ox 98.0 F 60 20 142/83 98 07/14/18 06:00 07/14/18 10:05 07/14/18 06:00 07/14/18 10:05 07/14/18 06:00 Intake and Output: 07/14/18 07/14/18 06:59 18:59 Intake Total 450 Balance 450 - Medications Medications: Current Medications Acetaminophen (Tylenol 325mg Tab) 650 mg PO Q4H PRN PRN Reason: Pain, moderate (4-7) Last Admin: 07/14/18 11:31 Dose: 650 mg Amlodipine Besylate (Norvasc) 5 mg PO DAILY [facility] Last Admin: 07/14/18 10:05 Dose: 5 mg Duloxetine HCl (Cymbalta) 30 mg PO DAILY [facility] Last Admin: 07/14/18 10:05 Dose: 30 mg Gabapentin (Neurontin) 300 mg PO DAILY [facility]; Protocol Last Admin: 07/14/18 10:06 Dose: 300 mg Home Med (Home Med) 1 unit PO DIN [facility] Last Admin: 07/13/18 17:37 Dose: 1 unit Hydrochlorothiazide (Microzide) 12.5 mg PO DAILY [facility] Last Admin: 07/14/18 10:05 Dose: 12.5 mg Piperacillin Sod/Tazobactam Sod (Zosyn 4.5 Gm In Ns 100ml) 4.5 gm in 100 mls @ 25 mls/hr IVPB Q8 [facility]; Protocol Stop: 07/19/18 14:01 Last Admin: 07/14/18 06:36 Dose: 25 mls/hr Losartan Potassium (Cozaar) 100 mg PO DAILY [facility] Last Admin: 07/14/18 10:05 Dose: 100 mg Pantoprazole Sodium (Protonix Ec Tab) 40 mg PO 0600 [facility] Last Admin: 07/14/18 06:35 Dose: 40 mg Tiotropium Glenn (Spiriva) 18 mcg IH DAILY PRN PRN Reason: Shortness of Breath - Labs Labs: 07/11/18 21:00 07/11/18 21:00 - Constitutional Appears: Non-toxic, No Acute Distress - Head Exam Head Exam: ATRAUMATIC, NORMOCEPHALIC - Eye Exam Eye Exam: Normal appearance - ENT Exam ENT Exam: Mucous Membranes Moist, Normal Exam - Neck Exam Neck Exam: Normal Inspection - Respiratory Exam Respiratory Exam: Clear to Ausculation Bilateral, NORMAL BREATHING PATTERN. absent: Rales, Rhonchi, Wheezes, Respiratory Distress - Cardiovascular Exam Cardiovascular Exam: REGULAR RHYTHM, +S1, +S2 - GI/Abdominal Exam GI & Abdominal Exam: Distended, Soft, Tenderness, Normal Bowel Sounds. absent: Firm, Guarding, Rigid, Organomegaly, Rebound - Extremities Exam Extremities Exam: absent: Joint Swelling, Pedal Edema - Neurological Exam Neurological Exam: Alert, Awake, Oriented x3 - Psychiatric Exam Psychiatric exam: Normal Affect, Normal Mood - Skin Skin Exam: Dry, Intact, Normal Color, Warm Assessment and Plan - Assessment and Plan (Free Text) Assessment: # RLQ abdominal pain # LLQ mass 2/2 sigmoid mass vs small bowel vs ovarian # Concern for Perforation # Diverticulosis # DM2 # HTN # GERD # iron deficiency anemia # gastritis # endometriosis - CAT abd pelvis with contrast 07/11/18: Diffuse colonic diverticulosis. Significant decrease in the gas-containing fluid collection in the left lower quadrant measuring 2.5 x 3.1 cm, suspected 2/2 perforated diverticula. Hypoattenuation of liver compatible with hepatic steatosis. 8 mm and 10 mm right heaptic lobe hypodensities, possibly cysts or hemangiomas. - CT abd pelvis 04/22/18: Scattered hepatic cysts. LLQ mass contains air post percutaenous biopsy. Communication with thickened sigmoid colon which contains numerous diverticula. Possiblitlity of perforated diverticulitis with abscess formation not excluded. - CT abd pelvis with PO/IV contrast 04/16/18: complex mass in LLQ - 7 cm in diameter, spiculated borders. pockets of air and fluid within mass - necrotic mass vs abscess? Mural thickening in adjacent sigmoid colon. - Appreciate surgical recs - awaiting transfer to [facility] Case seen and discussed with Dr Orozco. <Odessa Orozco V - Last Filed: 07/15/18 00:09> Objective - Vital Signs/Intake and Output Vital Signs (last 24 hours): Temp Pulse Resp BP Pulse Ox 98.0 F 60 20 142/83 98 07/14/18 06:00 07/14/18 10:05 07/14/18 06:00 07/14/18 10:05 07/14/18 06:00 - Labs Labs: 07/11/18 21:00 07/11/18 21:00
== END 2018-07-14 17:24 | disposition short-term general hospital (02) | DRG 392 ==
LOC: ED 19:44 → ERH 07-12 01:38 → 3RSO 07-12 02:37
PROVIDERS: ADMIT Internal Medicine Nephrology; ATTEND Internal Medicine Nephrology
DX: K57.30 Diverticulosis of large intestine without perforation or abscess without bleeding (principal); K21.9 Gastro-esophageal reflux disease without esophagitis; I10 Essential (primary) hypertension; E11.9 Type 2 diabetes mellitus without complications; D50.9 Iron deficiency anemia, unspecified; M51.26 Other intervertebral disc displacement, lumbar region; M54.32 Sciatica, left side; F41.9 Anxiety disorder, unspecified; F32.9 Major depressive disorder, single episode, unspecified; N80.9 Endometriosis, unspecified; K29.70 Gastritis, unspecified, without bleeding; R19.04 Left lower quadrant abdominal swelling, mass and lump; E66.9 Obesity, unspecified; Z68.32 Body mass index [BMI] 32.0-32.9, adult; Z87.891 Personal history of nicotine dependence